=== PATIENT | female | born 1940 | race Caucasian/White ===

== ENCOUNTER 2018-11-30 05:39 | Inpatient (IN) | payer MEDICARE, OTHER ==
[2018-11-30 06:21] LABS: #Basophils 0.1 thou/uL (0.0-0.2); #Eosinphils 0.2 thou/uL (0.0-0.7); #Lymphocytes 3.1 thou/uL (1.20-3.40); #Neutrophils 5.1 thou/uL (1.40-6.50); %Basophils 0.7 % (0.0-1.0); %Eosinophils 2.6 % (0.0-10.0); %Lymphocytes 32.6 % (21.0-51.0); %Monocytes 10.3 % (0.0-10.0); %Neutrophils 53.7 % (42.0-75.0); Hemoglobin 13.6 g/dL (12.0-16.0); Mean Corpuscular Hemoglobin 28.9 pg (27.0-31.0); Mean Corpuscular Volume 90.2 fL (78.0-98.0); Mean Platelet Volume 7.6 fL (7.4-10.4); Platelet Count 279 thou/uL (130-400); RBC Distribution Width 12.4 % (11.5-14.5); Red Blood Cell (RBC) Count 4.71 mill/uL (4.20-5.40); White Blood Cell (WBC) Count 9.4 thou/uL (4.8-10.8)
[2018-11-30 06:27] LABS: INR-International Normal Ratio 1.1; PTT 26.7 SEC (22.9-36.1); Prothrombin Time 13.9 SEC (12.0-14.7)
[2018-11-30 06:41] LABS: ALT (SGPT) 18 U/L (8-55); AST (SGOT) 15 U/L (5-34); Albumin 4.1 g/dL (3.4-4.8); Alkaline Phosphatase 65 U/L (40-150); Anion Gap 15 mmol/L (10-20); BUN (Urea Nitrogen) 31 mg/dL (9.8-20.1); Bilirubin, Total 0.3 mg/dL (0.2-1.2); Calc. Creatinine Clearance 56 mL/min (70-130); Calcium 10.2 mg/dL (7.8-10.44); Carbon Dioxide 21 mmol/L (23-31); Cardiac Risk 5.6 (Less than 4.5); Chloride 109 mmol/L (98-107); Cholesterol 268 mg/dl (< 200 Desired); Estimated GFR-MDRD 46; Glucose 138 mg/dL (83-110); HDL Cholesterol 48 mg/dL (>60 Neg Risk); LDL Cholesterol, Calculated 172 mg/dL; Potassium 4.5 mmol/L (3.5-5.1); Protein, Total 7.1 g/dL (6.0-8.3); Sodium 140 mmol/L (136-145); Triglycerides 241 mg/dL (Less than 150)
[2018-11-30] MEDS ORDERED: Midazolam HCl 2 mg/2 ml Vial ONE (07:33)
[2018-11-30] MEDS ORDERED: Fentanyl 100 MCG/2 ML VIAL ONE (07:33)
[2018-11-30] MEDS ORDERED: Heparin 10,000 UNITS/1 ML VIAL ONE (08:49)
[2018-11-30] MEDS ORDERED: Morphine 2 MG/ML SYRINGE ONE (10:12)
[2018-11-30] MEDS ORDERED: HYDROcodone/Acetaminophen 5/325 mg Tablet PO PRN (11:35)
[2018-11-30] MEDS ORDERED: Bisacodyl 5 MG TAB PO PRN (11:35)
[2018-11-30] MEDS ORDERED: Acetaminophen 325 MG TAB PO PRN (11:35)
[2018-11-30] MEDS ORDERED: Senokot S 8.6-50 MG TAB PO PRN (11:35)
[2018-11-30] MEDS ORDERED: Ondansetron PF 4 MG/2 ML Vial IVP PRN (11:35)
[2018-11-30] MEDS ORDERED: Communication Order-Pharmacy FS ONE (11:35)
[2018-11-30 12:35] LABS: Hemoglobin A1c 6.4 % (4.0-6.0)
[2018-11-30] MEDS ORDERED: Iopamidol 370 76% 100 ML VIAL ONE (15:09)
[2018-11-30] MEDS ORDERED: Sodium Chloride 0.9% 1,000 ML IV SCH (18:58)
[2018-11-30] MEDS ORDERED: traMADol HCl 50 MG TAB PO PRN (18:58)
[2018-11-30] MEDS ORDERED: Nitroglycerin 0.4 MG TAB (25 Tab Bottle) SL PRN (18:58)
[2018-11-30] MEDS ORDERED: Acetaminophen/Codeine 30-300mg Tablet PO PRN ×2 (18:58)
[2018-11-30] MEDS ORDERED: Latanoprost 0.005% Ophth Soln 2.5 ml Bottle L EYE SCH (21:00)
[2018-11-30] MEDS: Brimonidine Tartrate 0.2% Ophth Soln 5 ml Bottle L EYE SCH (22:09)
[2018-12-01] MEDS ORDERED: CEFAZOLIN 2 GM/50 ML-DEXTROSE 2 GM in Premix Bag 1 BAG IVPB SCH (01:45)
[2018-12-01] MEDS ORDERED: Albumin 5% 500 ML ONE (06:31)
[2018-12-01] MEDS ORDERED: Heparin 10,000 UNITS/1 ML VIAL 30,000 UNITS in Sodium Chloride 0.9% 1,000 ML FS SCH (07:00)
[2018-12-01] MEDS ORDERED: Fentanyl 250 MCG/5 ML VIAL ONE (07:10)
[2018-12-01] MEDS ORDERED: Dexmedetomidine 200 MCG/2 ML VIAL ONE (07:11)
[2018-12-01] MEDS ORDERED: Phenylephrine HCL 10 MG/ML VIAL ONE (07:11)
[2018-12-01] MEDS ORDERED: Midazolam HCl 5 mg/5 ml Vial ONE (07:11)
[2018-12-01] MEDS ORDERED: Vecuronium 10 MG VIAL ONE ×2 (07:11→13:07)
[2018-12-01] MEDS ORDERED: Sodium Chloride 0.9% 10 ML ONE (07:13)
[2018-12-01] MEDS ORDERED: Clindamycin/D5W 900 mg/50 ml Premix Bag ONE (08:04)
[2018-12-01] MEDS ORDERED: Levofloxacin 500 mg/D5W 100 ml Premix Bag ONE (08:04)
[2018-12-01] MEDS ORDERED: Aspirin 81 mg Enteric Coated Tablet PO SCH (09:00)
[2018-12-01] MEDS ORDERED: Atorvastatin Calcium 40 MG TAB PO SCH (09:00)
[2018-12-01] MEDS ORDERED: Insulin Regular 300 UNITS/3 ML VIAL ONE (10:20)
[2018-12-01] MEDS ORDERED: Bupivacaine HCl 0.5%/Epinephrine 1:200,000/PF 30 ml Vial ONE (11:25)
[2018-12-01] MEDS ORDERED: Dexamethasone 4 mg/ml Vial ONE (11:25)
[2018-12-01] MEDS ORDERED: Mag-Al 1200 mg/1200 mg/30 ML UDCUP PO PRN (12:42)
[2018-12-01] MEDS ORDERED: Morphine 4 MG/ML VIAL SLOW IVP PRN (12:42)
[2018-12-01] MEDS ORDERED: Fentanyl 100 MCG/2 ML VIAL SLOW IVP PRN ×2 (12:42)
[2018-12-01] MEDS ORDERED: Potassium Chloride 20 MEQ/100 ML PREMIX BAG IVPB PRN (12:42)
[2018-12-01] MEDS ORDERED: Norepinephrine 8 MG/0.9% NS 250 ML IVPB PRN (12:42)
[2018-12-01] MEDS ORDERED: Hetastarch 6% 500 ML 500 ML IVPB PRN (12:42)
[2018-12-01] MEDS ORDERED: hydrALAZINE 20 MG/ML VIAL SLOW IVP PRN (12:42)
[2018-12-01] MEDS ORDERED: Bisacodyl 5 MG TAB PO PRN (12:42)
[2018-12-01] MEDS ORDERED: Promethazine HCl 25 MG/ML VIAL IM PRN (12:42)
[2018-12-01] MEDS ORDERED: Nitroglycerin 50 MG/250 ML BOT 250 ML IVPB PRN (12:42)
[2018-12-01] MEDS ORDERED: Acetaminophen 325 MG TAB PO PRN (12:42)
[2018-12-01] MEDS ORDERED: Guaifenesin DM 100-10/5 ML UDCUP PO PRN (12:42)
[2018-12-01] MEDS ORDERED: HYDROcodone/Acetaminophen 5/325 mg Tablet PO PRN (12:42)
[2018-12-01] MEDS ORDERED: Bisacodyl 10 MG SUPP PR PRN (12:42)
[2018-12-01] MEDS ORDERED: DOPamine 400 MG/D5W 250 ML 250 ML IVPB PRN (12:42)
[2018-12-01] MEDS ORDERED: Post-Op Insulin Drip Protocol IVPB ONE (12:42)
[2018-12-01] MEDS ORDERED: Nitroglycerin 50 MG/250 ML BOT 250 ML ONE (13:02)
[2018-12-01] MEDS ORDERED: Thrombin 5000 UNITS/5 ML VIAL ONE (13:07)
[2018-12-01] MEDS ORDERED: Ondansetron PF 4 MG/2 ML Vial ONE (13:07)
[2018-12-01] MEDS ORDERED: Heparin 30,000 units/30 ml VIAL ONE (13:07)
[2018-12-01] MEDS ORDERED: Albumin 25% 25 GM/100 ML BOT ONE (13:07)
[2018-12-01] MEDS ORDERED: Sodium Bicarb 50 MEQ/50 ML VIAL ONE (13:07)
[2018-12-01] MEDS ORDERED: Magnesium 5 GM/10 ML VIAL ONE (13:07)
[2018-12-01] MEDS ORDERED: PROPOFOL 200 MG/20 ML VIAL ONE (13:07)
[2018-12-01] MEDS ORDERED: Heparin 5,000 UNITS/ML VIAL ONE (13:07)
[2018-12-01] MEDS ORDERED: Calcium Chloride 1 GM/10 ML Abboject SYRINGE ONE (13:07)
[2018-12-01] MEDS ORDERED: Glycopyrrolate 0.2 MG/ML 5 ML SYRINGE ONE (13:07)
[2018-12-01] MEDS ORDERED: Potassium Chloride 60 MEQ/30 ML VIAL ONE (13:07)
[2018-12-01] MEDS ORDERED: ePHEDrine/0.9% NaCl/PF SYRINGE 50 mg/10 ml ONE (13:07)
[2018-12-01] MEDS ORDERED: Protamine Sulfate 250 MG/25 ML VIAL ONE (13:07)
[2018-12-01] MEDS ORDERED: Mannitol 12.5 GM/50 ML ONE (13:07)
[2018-12-01] MEDS ORDERED: Papaverine 60 MG/2 ML VIAL ONE (13:07)
[2018-12-01] MEDS ORDERED: Lidocaine 2% PF 100 mg/5 ml Syringe ONE (13:07)
[2018-12-01] MEDS ORDERED: Nitroglycerin 50 MG/250 ML BOT ONE (13:07)
[2018-12-01] MEDS ORDERED: Dexamethasone 20 MG/5 ML VIAL ONE (13:07)
[2018-12-01] MEDS ORDERED: Cardioplegic Soln 1,000 ML BAG ONE (13:07)
[2018-12-01] MEDS ORDERED: Aminocaproic Acid 5 GM/20 ML VIAL ONE (13:07)
[2018-12-01] MEDS ORDERED: Insulin Regular 300 UNITS/3 ML VIAL SC PRN (13:16)
[2018-12-01] MEDS ORDERED: HUMULIN R 100 UNITS in Sodium Chloride 0.9% 100 ML IVPB SCH (13:16)
[2018-12-01] MEDS ORDERED: Dextrose 50% Abboject 50 ML SYRINGE SLOW IVP PRN (13:16)
[2018-12-01] MEDS ORDERED: Dextrose 5% in Water 1,000 ML IV PRN (13:16)
[2018-12-01 13:30] LABS: INR-International Normal Ratio 1.3; Prothrombin Time 16.4 SEC (12.0-14.7)
[2018-12-01] MEDS ORDERED: Magnesium 2 GM/50 ML 2 GM in Premix Bag 1 BAG IVPB SCH (13:30)
[2018-12-01 13:52] LABS: Anion Gap 10 mmol/L (10-20); BUN (Urea Nitrogen) 17 mg/dL (9.8-20.1); Calc. Creatinine Clearance 73 mL/min (70-130); Calcium 9.1 mg/dL (7.8-10.44); Carbon Dioxide 21 mmol/L (23-31); Chloride 115 mmol/L (98-107); Estimated GFR-MDRD 61; Glucose 205 mg/dL (83-110); Potassium 4.7 mmol/L (3.5-5.1); Sodium 141 mmol/L (136-145)
--- NOTE | 2018-12-01 14:20 | RAD ---
PORTABLE CHEST ONE VIEW: 12/01/2018 11:29 a.m. HISTORY: Postop open heart surgery. FINDINGS: There are changes of median sternotomy. There is a right subclavian central line with the tip in the projection of the right atrium. A mediastinal drain and a left-sided chest tube are present. There is mild pulmonary vascular congestion. There is atelectatic change of the left lung base with proba ble small effusions. No pneumothoraces are seen. POS: [facility]
[2018-12-01] MEDS: Sodium Chloride 0.9% 1,000 ML IV SCH ×2 (14:26→23:31)
[2018-12-01] MEDS: Brimonidine Tartrate 0.2% Ophth Soln 5 ml Bottle L EYE SCH ×2 (14:28→19:34)
[2018-12-01 14:29] LABS: Hemoglobin 10.4 g/dL (12.0-16.0); Mean Corpuscular HGB CONC 32.1 g/dL (32.0-36.0); Mean Corpuscular Hemoglobin 29.2 pg (27.0-31.0); Mean Platelet Volume 7.9 fL (7.4-10.4); Platelet Count 189 thou/uL (130-400); RBC Distribution Width 12.2 % (11.5-14.5); Red Blood Cell (RBC) Count 3.56 mill/uL (4.20-5.40); White Blood Cell (WBC) Count 20.8 thou/uL (4.8-10.8)
[2018-12-01] MEDS: Ketorolac Tromethamine 30 MG/ML VIAL IVP SCH ×2 (14:29→19:24)
[2018-12-01] MEDS: Ondansetron PF 4 MG/2 ML Vial IVP PRN ×2 (14:30→19:37)
[2018-12-01 14:37] LABS: Band 21 % (5-11); Lymphocytes 5 % (21-51); MDiff Complete? YES; Monocytes 3 % (0-10); Neutrophil 71 % (42-75); Platelet Morphology Comment Appears Adequate
[2018-12-01] MEDS: Clindamycin/D5W 900 MG in Premix Bag 1 BAG IVPB SCH ×2 (15:11→19:32)
--- NOTE | 2018-12-01 17:49 | PDOC.CTH ---
Cardiology Progress Note - Subjective She had her CABG earlier today. She is extubated. Her BP has stabilized. - Objective Vital Signs Temp Pulse Ox 12/01/18 17:00 98.0 F 12/01/18 16:00 99 12/01/18 14:00 97.9 F 12/01/18 13:43 97 Admit Weight 197 lb 1.492 oz Weight 197 lb 1.492 oz 11/30/18 12/01/18 12/02/18 06:59 06:59 06:59 Intake Total 140 350 Output Total 650 405 Balance -510 -55 - Physical Examination General/Neuro: alert & oriented x3, NAD Neck: no JVD present Lungs: CTA, unlabored respirations Heart: RRR Abdomen: NT/ND ( ) Extremities: + edema B (1+) - Telemetry Telemetry Rhythm: NSR - Labs Result Diagrams: 12/01/18 13:08 12/01/18 13:08 - Assessment/Plan 1. Multivessel CAD. 2. S/P CABG PLAN: - Continue post op care - PT once tolerated - Aspirin and statin for life. - BB and ACEI if BP allows.
[2018-12-01] MEDS ORDERED: Ketorolac Tromethamine 30 MG/ML VIAL IVP SCH (18:00)
[2018-12-01 18:06] LABS: Hemoglobin 10.2 g/dL (12.0-16.0)
[2018-12-01 18:31] LABS: Potassium 4.5 mmol/L (3.5-5.1)
[2018-12-01] MEDS: Famotidine/PF 20 mg/2ml Vial SLOW IVP SCH (19:33)
[2018-12-01] MEDS: Atorvastatin Calcium 10 MG TAB PO SCH (19:33)
[2018-12-01] MEDS: HYDROcodone/Acetaminophen 5/325 mg Tablet PO PRN (23:36)
[2018-12-02] MEDS: Clindamycin/D5W 900 MG in Premix Bag 1 BAG IVPB SCH ×2 (02:37→08:52)
[2018-12-02] MEDS: Ketorolac Tromethamine 30 MG/ML VIAL IVP SCH (02:37)
[2018-12-02 05:18] LABS: #Lymphocytes 0.8 thou/uL (1.20-3.40); #Monocytes 1.4 thou/uL (0.11-0.59); #Neutrophils 11.5 thou/uL (1.40-6.50); %Lymphocytes 5.6 % (21.0-51.0); %Monocytes 10.2 % (0.0-10.0); %Neutrophils 84.1 % (42.0-75.0); Hemoglobin 8.3 g/dL (12.0-16.0); Mean Corpuscular HGB CONC 31.7 g/dL (32.0-36.0); Mean Corpuscular Hemoglobin 29.3 pg (27.0-31.0); Mean Corpuscular Volume 92.5 fL (78.0-98.0); Mean Platelet Volume 8.6 fL (7.4-10.4); Platelet Count 165 thou/uL (130-400); RBC Distribution Width 12.4 % (11.5-14.5); Red Blood Cell (RBC) Count 2.82 mill/uL (4.20-5.40); White Blood Cell (WBC) Count 13.6 thou/uL (4.8-10.8)
[2018-12-02 05:46] LABS: Anion Gap 11 mmol/L (10-20); BUN (Urea Nitrogen) 21 mg/dL (9.8-20.1); Calc. Creatinine Clearance 54 mL/min (70-130); Calcium 8.3 mg/dL (7.8-10.44); Carbon Dioxide 19 mmol/L (23-31); Chloride 112 mmol/L (98-107); Estimated GFR-MDRD 43; Glucose 112 mg/dL (83-110); Potassium 4.3 mmol/L (3.5-5.1); Sodium 138 mmol/L (136-145)
--- NOTE | 2018-12-02 08:13 | RAD ---
CHEST 1 VIEW: HISTORY: Heart surgery. COMPARISON: 12/01/2018. FINDINGS: Cardiac silhouette is magnified, enlarged, and partially obscured by persistent atelectasis at the le ft base. Pulmonary vasculature is slightly less engorged than on the prior study. Mediastinum is mi dline with postoperative changes. Lines and tues appear unchanged in position. youth nutritional monitor lead s overlie the chest. IMPRESSION: 1. Slight interval decrease in degree of pulmonary vascular congestion. 2. Otherwise, stable postoperative appearance of the chest. POS: DIAN
[2018-12-02] MEDS ORDERED: Insulin Glargine 10 UNITS in Pre-Filled Syringe 1 EACH SC SCH (08:15)
--- NOTE | 2018-12-02 08:35 | PDOC.CTH ---
Cardiology Progress Note - Subjective No new issues. Doing better. - Objective Admit Weight 197 lb 1.492 oz Weight 195 lb 12.328 oz 12/01/18 12/02/18 12/03/18 06:59 06:59 06:59 Intake Total 140 2867.5 Output Total 650 1045 15 Balance -510 1822.5 -15 - Physical Examination General/Neuro: alert & oriented x3, NAD Neck: no JVD present Lungs: CTA, unlabored respirations Heart: RRR Abdomen: NT/ND Extremities: + edema B (1+) - Telemetry Telemetry Rhythm: NSR - Labs Result Diagrams: 12/02/18 05:06 12/02/18 05:06 - Assessment/Plan 1. Multivessel CAD. 2. S/P CABG PLAN: - Continue post op care - PT once tolerated - Aspirin and statin for life. - BB and ACEI if BP allows, still borderline low.
[2018-12-02] MEDS: Sodium Chloride 0.9% 1,000 ML IV SCH ×2 (08:40→19:37)
--- NOTE | 2018-12-02 08:48 | OP ---
DATE OF PROCEDURE: 11/30/2018 PREOPERATIVE DIAGNOSIS: Coronary artery disease. PROCEDURE PERFORMED: Coronary bypass graft x3, left internal mammary artery small vessel good flow to a 1.25 mm LAD, saphenous vein good quality to 1.5 mm PDA and to 1.25 mm diffusely diseased obtuse marginal. WALNUT DEHYDRATOR OPERATOR: Robert Lloyd MD. TRANSFUSION: None. DESCRIPTION OF PROCEDURE: After adequate anesthesia had been obtained, the patient was prepped and draped. Dr. Lloyd performed an endovascular vein harvest of the left greater saphenous vein while I performed median sternotomy. Left internal mammary artery was harvested widely entering the left pleura. The patient was heparinized. Mammary divided distally and passed posterior to a very small remnant of thymus gland. The aorta was cannulated and rudimentary appendage was cannulated on the right atrium and cardiopulmonary bypass instituted. Vessels were inspected for grafting and the obtuse marginal was difficult to locate and films were reviewed to try and ensure that the correct vessel was isolated. Unfortunately, it was diffusely calcified and poor quality. After cross-clamping and a liter of cold blood cardioplegia was given, the three distal anastomosis completed, the cross-clamp removed, partial occluding clamp placed. Two proximal anastomosis performed on the aortic root and marked with rings. There was then bleeding from the distal tip of the mammary and given the small nature of these vessels, it was elected to [id number] 300 mL of cardioplegia and so this leak with the heart still. Following removal of the cross clamp, the patient was weaned from cardiopulmonary bypass. Cannula was removed and protamine given systemically. Mediastinal and left pleural drains were placed following which the sternum was reapproximated with #7 interrupted wire. The vancomycin paste used on the sternal edges, platelet rich blood, and platelet poor plasma. Subcutaneous tissue and skin closed in layers. No reoperation for the circumflex system. Job ID: [id number]
[2018-12-02] MEDS: Famotidine/PF 20 mg/2ml Vial SLOW IVP SCH ×2 (08:53→19:34)
[2018-12-02] MEDS ORDERED: Aspirin 325 MG TAB PO SCH (09:00)
[2018-12-02 11:02] LABS: Actual Bicarbonate (HCO3a) 18.4 mEq/L (22-28); Analyzer IN Cardio OR; Base Excess (BEa) -5.8 mEq/L (-2.0 to +3.0); CO2 Tension 31.4 mmHg (35.0-45.0); Calcium, Ionized 1.11 mmol/L (1.12-1.30); Carboxyhemoglobin (COHb) 0.3 gm% (0.0-3.0); Hemoglobin (Hb) 10.5 g/dL (12.0-16.0); Potassium - ABG Lab 4.13 mmol/L (3.70-5.30); pH, Arterial 7.39 (7.35-7.45)
[2018-12-02 11:02] LABS: Actual Bicarbonate (HCO3a) 21.6 mEq/L (22-28); Analyzer IN Cardio OR; Base Excess (BEa) -2.1 mEq/L (-2.0 to +3.0); CO2 Tension 33.1 mmHg (35.0-45.0); Calcium, Ionized 1.14 mmol/L (1.12-1.30); Carboxyhemoglobin (COHb) 0.4 gm% (0.0-3.0); Hemoglobin (Hb) 11.4 g/dL (12.0-16.0); Potassium - ABG Lab 4.05 mmol/L (3.70-5.30); pH, Arterial 7.43 (7.35-7.45)
[2018-12-02 11:03] LABS: Actual Bicarbonate (HCO3a) 24.2 mEq/L (22-28); Analyzer IN Cardio OR; Base Excess (BEa) -2.4 mEq/L (-2.0 to +3.0); CO2 Tension 52.1 mmHg (35.0-45.0); Calcium, Ionized 1.03 mmol/L (1.12-1.30); Carboxyhemoglobin (COHb) 0.4 gm% (0.0-3.0); Hemoglobin (Hb) 7.7 g/dL (12.0-16.0); O2 Tension (PaO2) 484.2 mmHg (> 70.0); Potassium - ABG Lab 4.58 mmol/L (3.70-5.30); pH, Arterial 7.29 (7.35-7.45)
[2018-12-02 11:03] LABS: Actual Bicarbonate (HCO3a) 21.3 mEq/L (22-28); Analyzer IN Cardio OR; CO2 Tension 34.4 mmHg (35.0-45.0); Calcium, Ionized 1.33 mmol/L (1.12-1.30); Carboxyhemoglobin (COHb) 0.5 gm% (0.0-3.0); Hemoglobin (Hb) 7.5 g/dL (12.0-16.0); O2 Tension (PaO2) 385.6 mmHg (> 70.0); pH, Arterial 7.41 (7.35-7.45)
[2018-12-02 11:03] LABS: Actual Bicarbonate (HCO3a) 24.5 mEq/L (22-28); Analyzer IN Cardio OR; Base Excess (BEa) -1.2 mEq/L (-2.0 to +3.0); CO2 Tension 45.8 mmHg (35.0-45.0); Calcium, Ionized 0.98 mmol/L (1.12-1.30); Carboxyhemoglobin (COHb) 0.4 gm% (0.0-3.0); Hemoglobin (Hb) 7.6 g/dL (12.0-16.0); Potassium - ABG Lab 4.45 mmol/L (3.70-5.30); pH, Arterial 7.35 (7.35-7.45)
[2018-12-02 11:04] LABS: Puncture Site ALINE
[2018-12-02 11:04] LABS: Puncture Site ALINE
[2018-12-02 11:05] LABS: O2 Tension (PaO2) 597.1 mmHg (> 70.0); Puncture Site ALINE
[2018-12-02 11:06] LABS: O2 Tension (PaO2) 502.4 mmHg (> 70.0); Puncture Site ALINE
[2018-12-02 11:07] LABS: Puncture Site ALINE
[2018-12-02] MEDS: HYDROcodone/Acetaminophen 5/325 mg Tablet PO PRN ×2 (12:41→19:33)
[2018-12-02] MEDS: Brimonidine Tartrate 0.2% Ophth Soln 5 ml Bottle L EYE SCH ×2 (17:22→19:36)
[2018-12-02] MEDS: Atorvastatin Calcium 10 MG TAB PO SCH (19:34)
[2018-12-03] MEDS: HYDROcodone/Acetaminophen 5/325 mg Tablet PO PRN ×3 (02:30→20:51)
[2018-12-03 04:28] LABS: #Eosinphils 0.1 thou/uL (0.0-0.7); #Lymphocytes 1.8 thou/uL (1.20-3.40); #Monocytes 1.5 thou/uL (0.11-0.59); #Neutrophils 7.5 thou/uL (1.40-6.50); %Eosinophils 0.6 % (0.0-10.0); %Lymphocytes 16.5 % (21.0-51.0); %Monocytes 13.8 % (0.0-10.0); %Neutrophils 69.1 % (42.0-75.0); Hemoglobin 7.6 g/dL (12.0-16.0); Mean Corpuscular HGB CONC 31.8 g/dL (32.0-36.0); Mean Corpuscular Hemoglobin 29.3 pg (27.0-31.0); Mean Corpuscular Volume 92.2 fL (78.0-98.0); Mean Platelet Volume 8.7 fL (7.4-10.4); Platelet Count 133 thou/uL (130-400); RBC Distribution Width 12.5 % (11.5-14.5); Red Blood Cell (RBC) Count 2.58 mill/uL (4.20-5.40); White Blood Cell (WBC) Count 10.9 thou/uL (4.8-10.8)
[2018-12-03 05:08] LABS: Anion Gap 10 mmol/L (10-20); BUN (Urea Nitrogen) 29 mg/dL (9.8-20.1); Calc. Creatinine Clearance 49 mL/min (70-130); Carbon Dioxide 21 mmol/L (23-31); Chloride 107 mmol/L (98-107); Estimated GFR-MDRD 38; Glucose 137 mg/dL (83-110); Potassium 3.9 mmol/L (3.5-5.1); Sodium 134 mmol/L (136-145)
[2018-12-03] MEDS ORDERED: Fentanyl 100 MCG/2 ML VIAL SLOW IVP PRN (07:22)
[2018-12-03] MEDS ORDERED: Bisacodyl 10 MG SUPP PR PRN (07:22)
[2018-12-03] MEDS ORDERED: Mineral Oil ENEMA PR PRN (07:22)
[2018-12-03] MEDS ORDERED: Ondansetron PF 4 MG/2 ML Vial IVP PRN (07:22)
[2018-12-03] MEDS ORDERED: Acetaminophen 325 MG TAB PO PRN (07:22)
[2018-12-03] MEDS ORDERED: Mag-Al 1200 mg/1200 mg/30 ML UDCUP PO PRN (07:22)
[2018-12-03] MEDS ORDERED: Nitroglycerin 0.4 MG TAB (25 Tab Bottle) SL PRN (07:22)
[2018-12-03] MEDS: Furosemide 40 MG TAB PO SCH (09:38)
[2018-12-03] MEDS: Potassium Chloride 10 MEQ TAB PO SCH (09:38)
[2018-12-03] MEDS: Aspirin 325 mg Enteric Coated Tablet PO SCH (09:38)
[2018-12-03] MEDS: Polyethylene Glycol 3350 17 GM Packet PO SCH (09:38)
[2018-12-03] MEDS: Brimonidine Tartrate 0.2% Ophth Soln 5 ml Bottle L EYE SCH ×2 (09:40→21:30)
--- NOTE | 2018-12-03 09:51 | RAD ---
PORTABLE CHEST: HISTORY: CCU followup. Postop sternotomy followup. COMPARISON: 12/02/2018. FINDINGS: Opacification of the left lung base is consistent with left basilar atelectasis and/or infiltrate and probable left effusion. Lung tavarez otherwise appear clear. Heart is mildly enlarged with postop sternotomy changes. Chest catheters and drains are again noted. A central line appears in adequate position and is unchanged. IMPRESSION: Continued left basilar opacification. POS: [facility]
--- NOTE | 2018-12-03 16:26 | PDOC.CTH ---
Cardiology Progress Note - Subjective She is doing better today. No BM's yet but passing gas. - Objective Vital Signs Temp Pulse Pulse BP BP Pulse Ox Pulse Ox 12/03/18 14:31 99 12/03/18 14:29 73 72 113/74 135/69 100 12/03/18 12:00 99.0 F 12/03/18 09:10 83 95 120/85 117/57 L 100 12/03/18 08:00 99 12/03/18 07:00 98.3 F Pulse Ox 12/03/18 14:31 12/03/18 14:29 73 L 12/03/18 12:00 12/03/18 09:10 100 12/03/18 08:00 12/03/18 07:00 Admit Weight 197 lb 1.492 oz Weight 196 lb 6.91 oz 12/02/18 12/03/18 12/04/18 06:59 06:59 06:59 Intake Total 2867.5 740 740 Output Total 1045 1090 755 Balance 1822.5 -350 -15 - Physical Examination General/Neuro: alert & oriented x3, NAD Neck: no JVD present Lungs: CTA, unlabored respirations Heart: RRR Abdomen: NT/ND Extremities: other: (trace) - Telemetry Telemetry Rhythm: NSR, PAC's - Labs Result Diagrams: 12/03/18 04:21 12/03/18 04:21 - Assessment/Plan 1. Multivessel CAD. 2. S/P CABG PLAN: - Continue post op care - PT once tolerated - Aspirin and statin for life. - Will start low dose coreg.
[2018-12-03] MEDS: Carvedilol 3.125 MG TAB PO SCH (17:24)
[2018-12-03] MEDS: Famotidine 20 MG TAB PO SCH (20:52)
[2018-12-03] MEDS: Guaifenesin DM 100-10/5 ML UDCUP PO PRN (20:52)
[2018-12-03] MEDS: Bisacodyl 5 MG TAB PO PRN (20:52)
[2018-12-03] MEDS: Atorvastatin Calcium 20 MG TAB PO SCH (20:52)
[2018-12-03] MEDS: Latanoprost 0.005% Ophth Soln 2.5 ml Bottle L EYE SCH (20:53)
[2018-12-03] MEDS ORDERED: Famotidine/PF 20 mg/2ml Vial SLOW IVP SCH (21:00)
[2018-12-04] MEDS: HYDROcodone/Acetaminophen 5/325 mg Tablet PO PRN ×4 (01:53→20:39)
[2018-12-04 07:03] LABS: Anion Gap 14 mmol/L (10-20); BUN (Urea Nitrogen) 33 mg/dL (9.8-20.1); Calc. Creatinine Clearance 59 mL/min (70-130); Calcium 8.3 mg/dL (7.8-10.44); Carbon Dioxide 18 mmol/L (23-31); Chloride 106 mmol/L (98-107); Estimated GFR-MDRD 44; Glucose 141 mg/dL (83-110); Potassium 4.1 mmol/L (3.5-5.1); Sodium 134 mmol/L (136-145)
[2018-12-04] MEDS: Potassium Chloride 10 MEQ TAB PO SCH (08:20)
[2018-12-04] MEDS: Brimonidine Tartrate 0.2% Ophth Soln 5 ml Bottle L EYE SCH ×2 (08:20→20:37)
[2018-12-04] MEDS: Carvedilol 3.125 MG TAB PO SCH ×2 (08:20→16:56)
[2018-12-04] MEDS: Aspirin 325 mg Enteric Coated Tablet PO SCH (08:21)
[2018-12-04] MEDS: Polyethylene Glycol 3350 17 GM Packet PO SCH (08:21)
[2018-12-04] MEDS: Furosemide 40 MG TAB PO SCH (08:21)
--- NOTE | 2018-12-04 15:53 | PDOC.CTH ---
Cardiology Progress Note - Subjective She had Afib overnight. She has been walking with PT without issues. She had a BM this morning. - Objective Vital Signs Temp Pulse Pulse Pulse Resp BP BP 12/04/18 15:11 97.9 F 93 16 12/04/18 12:44 86 53 L 136/61 103/52 L 12/04/18 11:49 98.1 F 84 16 12/04/18 08:20 12/04/18 07:27 97.9 F 64 18 BP Pulse Ox Pulse Ox 12/04/18 15:11 140/63 98 12/04/18 12:44 98 12/04/18 11:49 124/60 97 12/04/18 08:20 99 12/04/18 07:27 138/64 98 Admit Weight 197 lb 1.492 oz Weight 210 lb 3.2 oz 12/03/18 12/04/18 12/05/18 06:59 06:59 06:59 Intake Total 740 1780 Output Total 1090 1255 Balance -350 525 - Physical Examination General/Neuro: alert & oriented x3, NAD Neck: no JVD present Lungs: CTA, unlabored respirations Heart: RRR Abdomen: NT/ND Extremities: + edema B (1+) - Telemetry Telemetry Rhythm: Afib --> NSR - Labs Result Diagrams: 12/03/18 04:21 12/04/18 06:07 - Assessment/Plan 1. Multivessel CAD. 2. S/P CABG 3. Post op afib PLAN: - Continue post op care - Aspirin and statin for life. - Low dose coreg. - Will start amiodarone load. - Increase PT as tolerated.
[2018-12-04] MEDS: Amiodarone 200 MG TAB PO SCH (20:39)
[2018-12-04] MEDS: Atorvastatin Calcium 20 MG TAB PO SCH (20:39)
[2018-12-04] MEDS: Famotidine 20 MG TAB PO SCH (20:39)
[2018-12-04] MEDS: Latanoprost 0.005% Ophth Soln 2.5 ml Bottle L EYE SCH (20:43)
[2018-12-05] MEDS: HYDROcodone/Acetaminophen 5/325 mg Tablet PO PRN ×4 (00:23→20:53)
[2018-12-05] MEDS: Potassium Chloride 10 MEQ TAB PO SCH (08:40)
[2018-12-05] MEDS: Amiodarone 200 MG TAB PO SCH ×2 (08:41→20:49)
[2018-12-05] MEDS: Furosemide 40 MG TAB PO SCH (08:41)
[2018-12-05] MEDS: Carvedilol 3.125 MG TAB PO SCH ×2 (08:41→16:29)
[2018-12-05] MEDS: Aspirin 325 mg Enteric Coated Tablet PO SCH (08:41)
[2018-12-05] MEDS: Brimonidine Tartrate 0.2% Ophth Soln 5 ml Bottle L EYE SCH ×2 (08:42→20:50)
[2018-12-05] MEDS: Polyethylene Glycol 3350 17 GM Packet PO SCH (08:43)
--- NOTE | 2018-12-05 18:13 | PDOC.CTH ---
Cardiology Progress Note - Subjective Doing well working well with PT. Had BM. - Objective Vital Signs Temp Pulse Pulse Pulse Resp BP BP 12/05/18 16:28 98.4 F 88 16 12/05/18 14:57 88 59 L 164/83 H 146/53 H 12/05/18 12:27 61 75 135/60 155/53 H 12/05/18 12:00 97.8 F 77 16 12/05/18 08:41 12/05/18 07:34 98.2 F 61 16 BP Pulse Ox Pulse Ox Pulse Ox 12/05/18 16:28 141/57 H 98 12/05/18 14:57 97 98 12/05/18 12:27 97 96 12/05/18 12:00 119/61 96 12/05/18 08:41 97 12/05/18 07:34 134/61 97 Admit Weight 197 lb 1.492 oz Weight 209 lb 12/04/18 12/05/18 12/06/18 06:59 06:59 06:59 Intake Total 1780 1680 1440 Output Total 1255 3500 1900 Balance 525 -1820 -460 - Physical Examination General/Neuro: alert & oriented x3, NAD Neck: no JVD present Lungs: CTA, unlabored respirations Heart: RRR Abdomen: NT/ND Extremities: + edema B (trace) - Telemetry Telemetry Rhythm: NSR - Labs Result Diagrams: 12/03/18 04:21 12/04/18 06:07 - Assessment/Plan 1. Multivessel CAD. 2. S/P CABG 3. Post op afib PLAN: - Continue post op care - Aspirin and statin for life. - Low dose coreg. - Continue amiodarone load. - Increase PT as tolerated.
[2018-12-05] MEDS: Atorvastatin Calcium 20 MG TAB PO SCH (20:50)
[2018-12-05] MEDS: Famotidine 20 MG TAB PO SCH (20:50)
[2018-12-05] MEDS: Latanoprost 0.005% Ophth Soln 2.5 ml Bottle L EYE SCH (20:54)
[2018-12-06] MEDS: HYDROcodone/Acetaminophen 5/325 mg Tablet PO PRN ×3 (02:45→21:28)
[2018-12-06 07:21] LABS: #Basophils 0.1 thou/uL (0.0-0.2); #Eosinphils 0.4 thou/uL (0.0-0.7); #Lymphocytes 2.2 thou/uL (1.20-3.40); #Monocytes 1.2 thou/uL (0.11-0.59); #Neutrophils 5.6 thou/uL (1.40-6.50); %Basophils 0.6 % (0.0-1.0); %Eosinophils 4.2 % (0.0-10.0); %Lymphocytes 23.6 % (21.0-51.0); %Monocytes 12.4 % (0.0-10.0); %Neutrophils 59.2 % (42.0-75.0); Hemoglobin 8.4 g/dL (12.0-16.0); Mean Corpuscular HGB CONC 32.6 g/dL (32.0-36.0); Mean Corpuscular Hemoglobin 29.7 pg (27.0-31.0); Mean Corpuscular Volume 91.1 fL (78.0-98.0); Mean Platelet Volume 7.8 fL (7.4-10.4); Platelet Count 267 thou/uL (130-400); RBC Distribution Width 12.2 % (11.5-14.5); Red Blood Cell (RBC) Count 2.82 mill/uL (4.20-5.40); White Blood Cell (WBC) Count 9.4 thou/uL (4.8-10.8)
[2018-12-06 07:39] LABS: Anion Gap 11 mmol/L (10-20); BUN (Urea Nitrogen) 23 mg/dL (9.8-20.1); Calc. Creatinine Clearance 61 mL/min (70-130); Calcium 8.8 mg/dL (7.8-10.44); Carbon Dioxide 28 mmol/L (23-31); Chloride 104 mmol/L (98-107); Estimated GFR-MDRD 48; Glucose 111 mg/dL (83-110); Potassium 3.6 mmol/L (3.5-5.1); Sodium 139 mmol/L (136-145)
[2018-12-06] MEDS ORDERED: Metolazone 2.5 MG TAB PO SCH (08:30)
[2018-12-06] MEDS: Aspirin 325 mg Enteric Coated Tablet PO SCH (08:40)
[2018-12-06] MEDS: Potassium Chloride 10 MEQ TAB PO SCH (08:40)
[2018-12-06] MEDS: Furosemide 40 MG TAB PO SCH (08:40)
[2018-12-06] MEDS: Amiodarone 200 MG TAB PO SCH ×2 (08:40→21:28)
[2018-12-06] MEDS: Carvedilol 3.125 MG TAB PO SCH ×2 (08:41→16:13)
[2018-12-06] MEDS: Polyethylene Glycol 3350 17 GM Packet PO SCH (08:41)
[2018-12-06] MEDS: Brimonidine Tartrate 0.2% Ophth Soln 5 ml Bottle L EYE SCH ×2 (08:41→21:30)
[2018-12-06] MEDS: Bisacodyl 5 MG TAB PO PRN (11:20)
--- NOTE | 2018-12-06 14:04 | PRG ---
DATE OF SERVICE: 12/06/2018 SUBJECTIVE: A 78-year-old female being seen for acute kidney injury. The patient denies any nausea, vomiting, or chest pain. OBJECTIVE: CONSTITUTIONAL: Awake, alert, in no acute distress. VITAL SIGNS: Afebrile, pulse 75, breathing 16, blood pressure was 133/64. GENERAL APPEARANCE AND MENTAL STATUS: Fair. HEAD/NECK: Normocephalic. Atraumatic. EYES: EOMI. No deformity. EARS: Clear. No ulcers. NOSE: Intact. No lesions. MOUTH: Clear. No discharge. THROAT: Clear. No exudate. LUNGS: Clear. No crackles. CARDIAC: S1, S2. No rub. ABDOMEN: Benign. Bowel sounds positive. GENITALIA/RECTUM: Magallon absent. BACK/EXTREMITIES: Edema 0+. NEUROLOGICAL: Alert and motor intact. SKIN: LYMPHATICS: LABORATORY DATA: Labs showed hemoglobin 8.4. ASSESSMENT: 1. Stage 3 chronic kidney disease, stable. 2. Hypertension. 3. Acute kidney injury, improved. 4. Anemia. Would recommend followup with Hematology and give Epogen. Job ID: [id number]
--- NOTE | 2018-12-06 14:54 | PDOC.CTH ---
Cardiology Progress Note - Subjective She feels more bloated today and SOB. She has been back and forth in afib. Had a BM 2 days ago buit had not had another and has not passed gas since. - Objective Vital Signs Temp Pulse Resp BP BP Pulse Ox 12/06/18 12:26 99.3 F 82 18 133/65 98 12/06/18 08:41 98 12/06/18 07:40 98.0 F 70 20 160/71 H 98 12/06/18 04:00 97.8 F 55 L 17 167/71 H 98 Admit Weight 197 lb 1.492 oz Weight 202 lb 9 oz 12/05/18 12/06/18 12/07/18 06:59 06:59 06:59 Intake Total 1680 1680 Output Total 3500 2900 Balance -1820 -1220 - Physical Examination General/Neuro: alert & oriented x3, NAD Neck: no JVD present Lungs: unlabored respirations Heart: RRR Abdomen: NT/ND Extremities: + edema B (1+) - Telemetry Telemetry Rhythm: Afib - NSR - Labs Result Diagrams: 12/06/18 Unknown 12/06/18 Unknown - Assessment/Plan 1. Multivessel CAD. 2. S/P CABG 3. Post op afib PLAN: - Continue post op care - Aspirin and statin for life. - Low dose coreg. - Continue amiodarone load. - Increase PT as tolerated. - Try to get her bowels to move.
--- NOTE | 2018-12-06 20:09 | EKG ---
Test Reason : STAT Blood Pressure : / mmHG Vent. Rate : 058 BPM Atrial Rate : 058 BPM P-R Int : 176 ms QRS Dur : 108 ms QT Int : 446 ms P-R-T Axes : 026 047 060 degrees QTc Int : 437 ms Sinus bradycardia Otherwise normal ECG When compared with ECG of 01-DEC-2018 12:50, (Unconfirmed) RI interval has decreased QT has shortened Confirmed by ARABELLA CEDENO, . S. (4) on 12/06/2018 8:08:47 PM Referred By: TIERRA Confirmed By:DR. Razia BELL MD
[2018-12-06] MEDS: Atorvastatin Calcium 20 MG TAB PO SCH (21:28)
[2018-12-06] MEDS: Famotidine 20 MG TAB PO SCH (21:28)
[2018-12-06] MEDS: Latanoprost 0.005% Ophth Soln 2.5 ml Bottle L EYE SCH (21:29)
[2018-12-07] MEDS: HYDROcodone/Acetaminophen 5/325 mg Tablet PO PRN ×3 (04:48→20:38)
[2018-12-07] MEDS: Carvedilol 3.125 MG TAB PO SCH ×2 (08:14→17:16)
[2018-12-07] MEDS: Potassium Chloride 10 MEQ TAB PO SCH (08:14)
[2018-12-07] MEDS: Aspirin 325 mg Enteric Coated Tablet PO SCH (08:15)
[2018-12-07] MEDS: Furosemide 40 MG TAB PO SCH (08:15)
[2018-12-07] MEDS: Amiodarone 200 MG TAB PO SCH (08:15)
[2018-12-07] MEDS: Polyethylene Glycol 3350 17 GM Packet PO SCH (08:19)
[2018-12-07] MEDS: Brimonidine Tartrate 0.2% Ophth Soln 5 ml Bottle L EYE SCH ×2 (08:22→20:37)
[2018-12-07] MEDS: Amiodarone 450 MG, Admixture Fee 1 EACH in Dextrose 5% in Water 250 ML IVPB SCH ×2 (15:40→21:50)
--- NOTE | 2018-12-07 18:12 | PDOC.CTH ---
Cardiology Progress Note - Subjective She has been going in and out of afib. When she goes into afib she feels fatigued. - Objective Vital Signs Temp Pulse Pulse Pulse Resp BP BP 12/07/18 15:55 98.9 F 60 16 12/07/18 13:10 74 58 L 185/70 H 141/66 H 12/07/18 11:59 98.5 F 62 16 12/07/18 08:46 78 78 175/72 H 126/56 L 12/07/18 08:11 98.2 F 62 18 12/07/18 08:10 BP BP Pulse Ox Pulse Ox Pulse Ox 12/07/18 15:55 148/65 H 94 L 12/07/18 13:10 97 97 12/07/18 11:59 148/68 H 95 12/07/18 08:46 97 95 12/07/18 08:11 128/62 96 12/07/18 08:10 96 Admit Weight 197 lb 1.492 oz Weight 198 lb 1.6 oz 12/06/18 12/07/18 12/08/18 06:59 06:59 06:59 Intake Total 1680 1500 Output Total 2900 3700 Balance -1220 -2200 - Physical Examination General/Neuro: alert & oriented x3, NAD Neck: no JVD present Lungs: unlabored respirations Heart: RRR Abdomen: NT/ND Extremities: + edema B (1+) - Telemetry Telemetry Rhythm: Afib-->NSR - Labs Result Diagrams: 12/06/18 Unknown 12/06/18 Unknown - Assessment/Plan 1. Multivessel CAD. 2. S/P CABG 3. Post op afib PLAN: - Aspirin and statin for life. - Low dose coreg. - Amiodarone now IV drip. - Increase PT as tolerated. - Had a BM this morning. - Will monitor.
--- NOTE | 2018-12-07 20:01 | EKG ---
Test Reason : S/P CABG Blood Pressure : / mmHG Vent. Rate : 053 BPM Atrial Rate : 053 BPM P-R Int : 210 ms QRS Dur : 108 ms QT Int : 532 ms P-R-T Axes : 011 015 018 degrees QTc Int : 499 ms Sinus bradycardia with 1st degree A-V block Prolonged QT Abnormal ECG No previous ECGs available Confirmed by RUBEN LEVINE (2) on 12/07/2018 8:01:27 PM Referred By: KATHERINE Confirmed By:RUBEN LEVINE
[2018-12-07] MEDS: Atorvastatin Calcium 20 MG TAB PO SCH (20:37)
[2018-12-07] MEDS: Latanoprost 0.005% Ophth Soln 2.5 ml Bottle L EYE SCH (20:37)
[2018-12-07] MEDS: Famotidine 20 MG TAB PO SCH (20:37)
[2018-12-08] MEDS: HYDROcodone/Acetaminophen 5/325 mg Tablet PO PRN ×2 (04:05→20:43)
[2018-12-08] MEDS: Potassium Chloride 10 MEQ TAB PO SCH (09:47)
[2018-12-08] MEDS: Carvedilol 3.125 MG TAB PO SCH ×2 (09:47→16:44)
[2018-12-08] MEDS: Aspirin 325 mg Enteric Coated Tablet PO SCH (09:47)
[2018-12-08] MEDS: Furosemide 40 MG TAB PO SCH (09:48)
[2018-12-08] MEDS: Brimonidine Tartrate 0.2% Ophth Soln 5 ml Bottle L EYE SCH ×2 (09:48→20:42)
[2018-12-08] MEDS: Polyethylene Glycol 3350 17 GM Packet PO SCH (09:48)
[2018-12-08] MEDS: Guaifenesin DM 100-10/5 ML UDCUP PO PRN (14:42)
[2018-12-08] MEDS: Amiodarone 450 MG, Admixture Fee 1 EACH in Dextrose 5% in Water 250 ML IVPB SCH (18:59)
[2018-12-08] MEDS: Latanoprost 0.005% Ophth Soln 2.5 ml Bottle L EYE SCH (20:42)
[2018-12-08] MEDS: Atorvastatin Calcium 20 MG TAB PO SCH (20:42)
[2018-12-08] MEDS: Famotidine 20 MG TAB PO SCH (20:42)
[2018-12-09] MEDS: HYDROcodone/Acetaminophen 5/325 mg Tablet PO PRN ×4 (02:03→23:57)
--- NOTE | 2018-12-09 08:15 | PQF ---
VINCE RICO FERNANDO [id number] CLINICAL DOCUMENTATION IMPROVEMENT CLARIFICATION FORM: ICD-10 Updated PLEASE DO AN ADDENDUM TO THE PROGRESS NOTE WITH ANY DOCUMENTATION UPDATES OR ADDITIONS AND CARRY THROUGH TO DC SUMMARY. THANK YOU. DATE: 12/09 ATTN: DR. ANNA MARIE MAYORGA Please exercise your independent, professional judgment in responding to the clarification form. Clinical indicators are provided on the bottom of this form for your review. Please check appropriate box(s): [ x ] POST-OP AFIB is a complication of current/recent surgery [ ] POST-OP AFIB is not a complication of current/recent surgery [ ] Other diagnosis [ ] Unable to determine CLINICAL INDICATORS - SIGNS / SYMPTOMS / LABS PN 12/04 - : POST-OP AFIB RISK FACTOR: CABG X3 (11/30) TREATMENT: PO AMIODARONE (12/04 - ) AMIODARONE GTT (12/08 - PRESENT) THANK YOU! Yumi (This form is maintained as a part of the permanent medical record) 2014 [employer]. All Rights Reserved Yumi Francis RN, BSN [email or web address] Office: [phone] [facility]
[2018-12-09] MEDS ORDERED: Amiodarone 200 MG TAB PO SCH (09:00)
[2018-12-09] MEDS: Potassium Chloride 10 MEQ TAB PO SCH (09:22)
[2018-12-09] MEDS: Furosemide 40 MG TAB PO SCH (09:22)
[2018-12-09] MEDS: Aspirin 325 mg Enteric Coated Tablet PO SCH (09:22)
[2018-12-09] MEDS: Carvedilol 3.125 MG TAB PO SCH (09:22)
[2018-12-09] MEDS: Polyethylene Glycol 3350 17 GM Packet PO SCH (09:24)
[2018-12-09] MEDS: Brimonidine Tartrate 0.2% Ophth Soln 5 ml Bottle L EYE SCH ×2 (09:28→19:46)
[2018-12-09] MEDS: Guaifenesin DM 100-10/5 ML UDCUP PO PRN ×2 (09:29→19:48)
[2018-12-09 13:35] VITALS: BMI 35.1
--- NOTE | 2018-12-09 17:05 | PDOC.CTH ---
Cardiology Progress Note - Subjective She states she feels well every morning and then she gets her morning meds and starts feeling bad after that. - Objective Vital Signs Temp Pulse Pulse Pulse Resp BP BP 12/09/18 15:34 97.9 F 63 15 12/09/18 12:44 68 63 142/62 H 128/59 L 12/09/18 11:53 98.4 F 63 14 12/09/18 09:43 70 67 142/66 H 140/64 12/09/18 08:05 98.0 F 52 L 12 BP BP Pulse Ox Pulse Ox 12/09/18 15:34 149/64 H 96 12/09/18 12:44 93 L 12/09/18 11:53 138/63 94 L 12/09/18 09:43 12/09/18 08:05 140/60 94 L Admit Weight 194 lb Weight 198 lb 1.6 oz 12/08/18 12/09/18 12/10/18 06:59 06:59 06:59 Intake Total 1750 1200 Output Total 3200 2750 Balance -1450 -1550 - Physical Examination General/Neuro: alert & oriented x3, NAD Neck: no JVD present Lungs: CTA, unlabored respirations Heart: RRR Abdomen: NT/ND Extremities: + edema B (1+) - Telemetry Telemetry Rhythm: NSR, Afib - Labs Result Diagrams: 12/06/18 Unknown 12/06/18 Unknown - Assessment/Plan 1. Multivessel CAD. 2. S/P CABG 3. Post op afib PLAN: - Will stop all meds except for aspirin see if she can feel better. - if she feels better off all meds she may be discharged home and will start outpatient slowly and gradually.
[2018-12-09] MEDS: Famotidine 20 MG TAB PO SCH (19:46)
[2018-12-09] MEDS: Latanoprost 0.005% Ophth Soln 2.5 ml Bottle L EYE SCH (19:47)
[2018-12-10] MEDS: Potassium Chloride 10 MEQ TAB PO SCH (08:51)
[2018-12-10] MEDS: Furosemide 40 MG TAB PO SCH (08:51)
[2018-12-10] MEDS: Aspirin 325 mg Enteric Coated Tablet PO SCH (08:51)
[2018-12-10] MEDS: Brimonidine Tartrate 0.2% Ophth Soln 5 ml Bottle L EYE SCH (08:51)
[2018-12-10] MEDS: Polyethylene Glycol 3350 17 GM Packet PO SCH (08:52)
[2018-12-10 11:49] VITALS: BP 159/67; TEMP 99.3
--- NOTE | 2018-12-10 14:49 | PDOC.CTH ---
Cardiology Progress Note - Subjective Doing much better today. - Objective Vital Signs Temp Pulse Pulse Pulse Resp BP BP 12/10/18 11:43 99.3 F 64 16 12/10/18 11:20 60 65 187/72 H 152/69 H 12/10/18 08:34 80 76 152/69 H 153/67 H 12/10/18 07:41 97.8 F 58 L 18 12/10/18 07:30 12/10/18 03:53 97.7 F 65 16 BP BP Pulse Ox Pulse Ox Pulse Ox 12/10/18 11:43 159/67 H 100 12/10/18 11:20 12/10/18 08:34 98 96 12/10/18 07:41 157/65 H 97 12/10/18 07:30 97 12/10/18 03:53 100/53 L 95 Admit Weight 194 lb Weight 19 lb 3.2 oz 12/09/18 12/10/18 12/11/18 06:59 06:59 06:59 Intake Total 1200 1120 Output Total 2750 2100 Balance -1550 -980 - Physical Examination General/Neuro: alert & oriented x3, NAD Neck: no JVD present Lungs: CTA, unlabored respirations Heart: RRR Abdomen: NT/ND Extremities: + edema B (Trace) - Telemetry Telemetry Rhythm: NSR - Labs Result Diagrams: 12/06/18 Unknown 12/06/18 Unknown - Assessment/Plan 1. Multivessel CAD. 2. S/P CABG 3. Post op afib PLAN: - Feels much better off the meds for now. - She may be discharged home on current regimen. - Will plan on restarting BB and ACEI/ARB as an outpatient. Marcus her sensitivity is from Statin. - Follow up in 1 month.
== END 2018-12-10 15:55 | disposition home health service (06) | DRG 234 ==
LOC: CCL 05:39 → 2NO 18:18 → CCU 12-01 07:35 → 2NO 12-03 18:32
PROVIDERS: ADMIT Thoracic Surgery (Cardiothoracic Vascular Surgery); ATTEND Internal Medicine Cardiovascular Disease
PROC: 4A023N7 Measurement of Cardiac Sampling and Pressure, Left Heart, Percutaneous Approach (ICD-10-PCS; 2018-11-30)
PROC: B2111ZZ Fluoroscopy of Multiple Coronary Arteries using Low Osmolar Contrast (ICD-10-PCS; 2018-11-30)
PROC: B2151ZZ Fluoroscopy of Left Heart using Low Osmolar Contrast (ICD-10-PCS; 2018-11-30)
PROC: 4A033BC Measurement of Arterial Pressure, Coronary, Percutaneous Approach (ICD-10-PCS; 2018-11-30)
PROC: 02100Z9 Bypass Coronary Artery, One Artery from Left Internal Mammary, Open Approach (ICD-10-PCS; principal; 2018-12-01)
PROC: 021109W Bypass Coronary Artery, Two Arteries from Aorta with Autologous Venous Tissue, Open Approach (ICD-10-PCS; 2018-12-01)
PROC: 06BQ4ZZ Excision of Left Saphenous Vein, Percutaneous Endoscopic Approach (ICD-10-PCS; 2018-12-01)
PROC: 5A1221Z Performance of Cardiac Output, Continuous (ICD-10-PCS; 2018-12-01)
DX: I25.10 Atherosclerotic heart disease of native coronary artery without angina pectoris (principal); N17.9 Acute kidney failure, unspecified; I97.190 Other postprocedural cardiac functional disturbances following cardiac surgery; I12.9 Hypertensive chronic kidney disease with stage 1 through stage 4 chronic kidney disease, or unspecified chronic kidney disease; N18.3 Chronic kidney disease, stage 3 (moderate); I48.91 Unspecified atrial fibrillation; D64.9 Anemia, unspecified; Z88.0 Allergy status to penicillin; Z88.2 Allergy status to sulfonamides; Z79.82 Long term (current) use of aspirin; Z79.899 Other long term (current) drug therapy; Y83.2 Surgical operation with anastomosis, bypass or graft as the cause of abnormal reaction of the patient, or of later complication, without mention of misadventure at the time of the procedure; Y92.239 Unspecified place in hospital as the place of occurrence of the external cause
CPT/HCPCS: 36415; 36416; 36430; 71045; 80048; 80053; 80061; 82805; 83036; 85025; 85347; 85610; 85730; 86850; 86870; 86900; 86901; 86922; 87071; 93005; 93010; 93458; 93571; 93798; 99152; 99153; C1769; J0153; J0282; J0670; J1100; J1642; J1644; J1815; J1825; J1885; J1956; J2001; J2150; J2250; J2270; J2370; J2405; J2440; J2704; J2720; J3010; J3370; J3475; J3480; J3490; J7050; J7070; P9045; P9047; Q9967; S0017; S0028

== ENCOUNTER 2019-03-23 11:33 | Outpatient (CLI) | payer MEDICARE ==
--- NOTE | 2019-03-24 16:08 | ULT ---
LOWER EXTREMITY ARTERIAL EVALUATION USING DOPPLER WAVEFORM ANALYSIS AND SEGMENTAL LIMB PRESSURES 03/23/19 The patient has abnormal waveforms in both common femoral arteries that remain diminished distally wi th the right leg showing markedly diminished waveforms in the tibial vessels. Ankle-arm index on the right is 0.49 compared with 0.77 on the left. 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
== END 2019-03-23 11:34 | disposition home or self-care (01) ==
LOC: ULT 11:33
PROVIDERS: ATTEND Family Medicine
DX: I73.9 Peripheral vascular disease, unspecified (principal)
CPT/HCPCS: 93922

== ENCOUNTER 2019-10-04 22:35 | Observation (INO) | payer MEDICARE ==
[2019-10-05] MEDS ORDERED: Rivaroxaban 10 MG TAB PO SCH (00:15)
[2019-10-05 02:17] VITALS: BMI 35.4
[2019-10-05 07:43] LABS: CKMB 2.1 ng/mL (0-6.6)
[2019-10-05] MEDS ORDERED: busPIRone HCl 5 MG TAB PO PRN (07:47)
[2019-10-05] MEDS: Metoprolol Tartrate 25 MG TAB PO SCH ×2 (08:52→21:10)
[2019-10-05] MEDS: Aspirin 81 mg Enteric Coated Tablet PO SCH (08:56)
[2019-10-05] MEDS: Brimonidine Tartrate 0.2% Ophth Soln 5 ml Bottle L EYE SCH ×3 (08:56→21:08)
[2019-10-05] MEDS: Losartan 25 MG TAB PO SCH (11:36)
--- NOTE | 2019-10-05 12:23 | CON ---
DATE OF CONSULTATION: 10/05/2019 REASON FOR CONSULTATION: Tachycardia and weakness. HISTORY OF PRESENT ILLNESS: Ms. Ornelas is a very pleasant 79-year-old white female, very well known to myself, who comes to the hospital for just weakness. She has noticed several episodes in the last few weeks, where she gets extremely weak and tired to the point, where she has to just collapse to the ground. No syncope, only just weakness and not being able to continue to the point and she gets tachycardic. When this gets better, she feels back to normal. She had this episode yesterday lasted a lot longer, so decided to come in for evaluation. She was found to be in what appeared to be an atrial tachycardia or SVT and she was started on a diltiazem drip and eventually, she converted back to sinus rhythm. Cardiology has been consulted for further evaluation and care. She has a history of coronary artery disease with bypass surgery in November of this year. She had postoperative atrial fibrillation. PAST MEDICAL HISTORY: 1. Hypertension. 2. CAD status post CABG in November of this year. 3. Postoperative atrial fibrillation. 4. History of melanoma. 5. Chronic kidney disease. 6. Glaucoma. 7. Cataracts. 8. Hyperlipidemia. 9. Chronic back pain. 10. History of atrial fibrillation. PAST SURGICAL HISTORY: 1. CABG as above. 2. Cholecystectomy. 3. Hysterectomy. SOCIAL HISTORY: No alcohol, tobacco, or drugs. FAMILY HISTORY: Noncontributory. OUTPATIENT MEDICATIONS: Include; 1. Xarelto 10 mg a day. 2. Latanoprost. 3. Brimonidine. 4. Losartan 25 mg a day. 5. Aspirin 81 a day. 6. Atorvastatin 10 mg a day. 7. Keflex. 8. BuSpar 5 mg twice a day. ALLERGIES: 1. LISINOPRIL. 2. PENICILLIN. 3. SULFA DRUGS. 4. ELIQUIS. SHE HAD A REACTION TO SIDE EFFECTS, SO SHE CANNOT TOLERATE THIS. REVIEW OF SYSTEMS: A 12-point review of systems was done and was found to be negative unless stated in the history of present illness PHYSICAL EXAMINATION: VITAL SIGNS: Temperature 97.8, pulse 67, respiratory rate 16, saturation 97% on room air, and blood pressure 134/76. GENERAL: Awake, alert, and oriented x3. No distress. HEENT: Normocephalic and atraumatic. NECK: Supple. LUNGS: Clear. CARDIOVASCULAR: S1 and S2. No S3 or S4. There is a grade 2/6 systolic murmur at the right upper sternal border. ABDOMEN: Soft. Positive bowel sounds. EXTREMITIES: 1+ edema. SKIN: Warm and dry. LABORATORY DATA: Laboratory work was reviewed. White count of 12, hemoglobin of 11, hematocrit of 37, and platelet count of 300. Coags are unremarkable. Chemistries unremarkable except for BUN of 39, creatinine of 1.4, and GFR of 36. Troponin was 0.01 and then 0.03. BNP was 142. Glucose was 123. TSH was normal. EKG was reviewed, appears to be an SVT may be AVNRT. Currently in sinus rhythm and she has had some episodes of sinus bradycardia down to the 30s. ASSESSMENT: 1. Supraventricular tachycardia/atrial tachycardia. 2. Sinus bradycardia, monitor. 3. History of atrial fibrillation postoperatively that persisted afterwards. 4. Coronary artery disease status post coronary artery bypass grafting, stable. No acute coronary syndrome. PLAN: She is very afraid of doing an ablation, if they were to be needed. We will consult Electrophysiology for her to talk with them about this procedure after talking with her myself, she actually is a lot more calm about this and may decide to proceed as she is having very symptomatic episodes of this tachycardia. Thank you for letting us participate in the care of your patient. We will follow. Job ID: [id number]
--- NOTE | 2019-10-05 15:27 | HP ---
CHIEF COMPLAINT: Shortness of breath. HISTORY OF PRESENT ILLNESS: The patient is a very pleasant 79-year-old female with a past medical history of CAD, status post CABG in November; hypertension, and obesity, who presents to the hospital with shortness of breath and palpitations. The patient states that on and off for a few weeks, she has been having thumping in her chest, sometimes radiating up to her head. At that time, sometimes she feels unsteady. The patient's at the bedside stated that she has had multiple episodes to the point where she does not feel well at home and is unable to do anything because she feels so weak. This past Thursday, she was at [employer], had the similar symptom of thumping on her chest, and then at this time, she got so weak that she could not hardly walk. She came to the [place] [facility] 2 times, and she was sent home. The patient also states that she went to see her PCP yesterday, where she was found to be in atrial fibrillation with RVR, and at this time, she was transferred to [place] and then here. She denies any chest tightness, any shortness of breath, any nausea, vomiting, or diarrhea. She states that she has been taking all her medications appropriately. PAST MEDICAL HISTORY: As of the followin. She has CAD. 2. Hypertension. 3. Back pain. 4. Hyperlipidemia. PAST SURGICAL HISTORY: She has had a 3-vessel bypass in November, cholecystectomy, and hysterectomy. SOCIAL HISTORY: She denies any alcohol use, drug use, or smoking history. She is a full code, lives with her . ALLERGIES: SHE HAS LATEX AND PENICILLIN ALLERGIES. SHE IS ALSO ALLERGIC TO SULFA. MEDICATIONS: She takes: 1. Atorvastatin 20 mg daily. 2. Losartan 25 mg daily. 3. Xarelto 20 mg daily. 4. Latanoprost 0.005 ophthalmic drop to each eye daily. PHYSICAL EXAMINATION: VITAL SIGNS: Temperature of 98.8, 99% on room air, respiratory rate 18, blood pressure 100/72. GENERAL: She is awake, alert, and oriented x3. Does not appear in any distress. HEENT: Normocephalic and atraumatic. No lymphadenopathy noted. Pupils are equal and reactive to light. CV: S1 and S2 are present. No murmurs, rubs, or gallops. ABDOMEN: Soft and nontender. Bowel sounds are present x2. EXTREMITIES: No edema. Pedal pulses are present x2. NEUROVASCULAR: There are no focal deficits noted. SKIN: No cuts, lesions, or bruises noted. LABORATORY RESULTS: WBCs of 12.2, hemoglobin of 11.6, hematocrit of 37.8, platelets of 300. Sodium of 144, potassium of 4.0, BUN of 39, creatinine of 1.40. Her troponin was mildly elevated. Initially, they were normal, and they went up to 0.034. Her BNP was 242. She did have a chest x-ray that indicated no acute cardiopulmonary process noted. ASSESSMENT AND PLAN: The patient is a very pleasant 79-year-old female, who presents to the hospital with palpitations. 1. Atrial fibrillation with rapid ventricular response. The patient was found overnight to be a little bit bradycardic. She also has been found to be tachycardic in the ER. She was given Lopressor yesterday in the ER and then last night. Overnight when she was monitored here, she was found to be bradycardic. We will hold off on the beta-izzy for now. We will consult Cardiology. Also, we will continue her Xarelto. We will repeat an echocardiogram and monitor her. 2. Hyperlipidemia. We will continue her statin. 3. Hypertension. We will continue her JESSICA inhibitor. 4. Deep venous thrombosis prophylaxis. She is already on the Xarelto. 5. Her TSH was checked, it was normal, 1.68. Job ID: [id number]
[2019-10-05] MEDS ORDERED: Latanoprost 0.005% Ophth Soln 2.5 ml Bottle L EYE SCH (21:00)
[2019-10-05] MEDS ORDERED: Atorvastatin Calcium 20 MG TAB PO SCH (21:00)
--- NOTE | 2019-10-06 01:08 | CON ---
DATE OF CONSULTATION: 10/05/2019 I am seeing Mrs. Ornelas at our [facility] as Electrophysiology decorating consultant. Her problems are; 1. Narrow complex regular tachycardia on presentation, responding to diltiazem. 2. History of paroxysmal atrial fibrillation. a. Postoperative atrial fibrillation noted after her bypass surgery in November 2018, transiently suppressed with amiodarone in 2018. 3. History of coronary artery disease. a. Left heart catheterization from November 30, 2018, shows normal LVEF, occluded RCA, 67% LAD, severe large OM1 disease, status post coronary artery bypass grafting surgery on December 07, 2018. 4. History of hypertension. 5. Obesity. 6. Hyperlipidemia. 7. History of chronic back pain. ALLERGIES: LATEX, PENICILLIN, AND SULFA. MEDICATIONS: At home include Lipitor, losartan, Xarelto, latanoprost. SUBJECTIVE: Ms. Ornelas is here with recurrent palpitations. She went to [place] [facility] where she was noted to be in a regular narrow complex tachycardia. She was given IV diltiazem and her rhythm normalized. No strips on the first EKG is available. She had palpitations and weakness with these episodes. She did not pass out. No stroke-like symptoms. No neurological deficits. She denies angina. No fever, chills, cough. No bleeding issues. REVIEW OF SYSTEMS: Rest of 12-point review of systems otherwise unremarkable. PAST MEDICAL HISTORY: As above. I have seen this lady earlier this month, referred by Dr. Garber as outpatient to my office with history of atrial fibrillation and palpitations. At that point, we discussed options of ablation versus Multaq; however, she preferred no ablation at this time. She is filling out paperwork for Multaq, patient's assistance. SOCIAL HISTORY: Denies smoking, EtOH, or drug abuse. She is full code. Lives with her . FAMILY HISTORY: Not contributory. OBJECTIVE DATA: VITAL SIGNS: Blood pressure is 132/63, heart rate 67, respirations 20, and temperature 97.7 degrees Fahrenheit. GENERAL: Alert and oriented woman with elevated BMI, in no apparent distress. NECK: Supple. Jugular veins not distended. CHEST: Coarse without crackles. HEART: Sounds are regular rate and rhythm. No murmur or gallop. ABDOMEN: Benign. Bowel sounds positive. EXTREMITIES: Lower extremities without edema, clubbing, or cyanosis. VASCULAR: Pulses are adequate. NEUROLOGIC: The patient is nonfocal. MUSCULOSKELETAL: No joint swelling or deformity. SKIN: Without rash. DATABASE: EKG is reviewed. Initial EKG from [place] [facility] reveal a narrow complex tachycardia with rate of 127 beats per minute. P waves are difficult to discern, possibly burden in the QRS. LABORATORY DATA: Troponin 0.014 and 0.034. White count is 12.2, hemoglobin 11.7, platelet count is 300. INR is 1.3. Sodium 144, potassium 4, BUN is 39, creatinine 1.4. AST and ALT are 21 and 21. ASSESSMENT/PLAN: Mrs. Ornelas is a very pleasant 79-year-old woman with prior history of recurrent palpitations, history of postoperative atrial fibrillation, which was transiently suppressed with amiodarone, but now she is off this medication for many months. On the other hand, she has recurrent palpitations. I saw the patient for discussion regarding presumed paroxysmal atrial fibrillation. We have discussed the treatment options for that, including pulmonary venous isolation procedure. Now, she is presenting with a narrow complex arrhythmia which could represent atrial tachycardia, less likely sinus tachycardia, hence the lack of visible P waves. Part of the differential diagnosis also includes narrow complex SVT like AV jenny reentrant tachycardia with P waves, burried in the QRS. Either way, she is responding well to diltiazem. Again, we discussed the treatment options. She seems to have responded well to diltiazem. Again as discussed in the office, Multaq could also be a reasonable option for her, but may not be affordable medication for her. She is filling out paperwork in this regard, but for now, it is reasonable to consider adding diltiazem to regimen or even beta-izzy. Monitor for concomitant bradycardia. Home monitor maybe reasonable and we will make arrangements to have that scheduled and followup in my office. In the meantime, continue Xarelto hence assumed atrial fibrillation and we will have further discussion regarding the option of EP study ablation as an outpatient as well. Thank you again for letting me to participate in the care of this patient. Job ID: [id number] MTDD
[2019-10-06] MEDS: Aspirin 81 mg Enteric Coated Tablet PO SCH (07:41)
[2019-10-06] MEDS: Metoprolol Tartrate 25 MG TAB PO SCH (07:41)
[2019-10-06] MEDS: Brimonidine Tartrate 0.2% Ophth Soln 5 ml Bottle L EYE SCH (07:42)
[2019-10-06 08:24] VITALS: BP 143/63; TEMP 96.6
[2019-10-06] MEDS: Losartan 25 MG TAB PO SCH (11:04)
[2019-10-06] MEDS ORDERED: Rivaroxaban 10 MG TAB PO SCH (17:00)
--- NOTE | 2019-10-07 08:13 | DIS ---
DATE OF ADMISSION: 10/05/2019 DATE OF DISCHARGE: 10/06/2019 DISCHARGE DIAGNOSES: 1. Atrial fibrillation with rapid ventricular response. 2. Coronary artery disease. 3. Hypertension. HOSPITAL COURSE: The patient is a very pleasant 79-year-old female with status post CABG in , who presents to the hospital with complaints of palpitations. She was found to be in AFib with RVR. She was initially seen by EP and Cardiology. She was put on a beta-izzy and a calcium-channel izzy. The patient really wanted to go home. 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 Her heart rate remained in the 70s on ambulation. I have asked her to continue to monitor her heart rate and if her symptoms return, to come into the ER. She is already on Xarelto. Her echocardiogram indicated an EF of 60% to 65%, with left atrium was mildly dilated. Mild mitral and mild tricuspid regurgitation was noted. MEDICATIONS: Her home medications will be as of the following, she is going to be on; 1. Diltiazem 30 mg t.i.d. 2. Metoprolol 25 mg b.i.d. 3. Latanoprost one drop at bedtime. 4. Aspirin 81 mg daily. 5. Xarelto 20 mg q.p.m. 6. Atorvastatin 20 mg daily. 7. Losartan 25 mg daily. 8. BuSpar 5 mg p.o. daily. PHYSICAL EXAMINATION: VITAL SIGNS: Temperature of 97.8, pulse 75, respiratory rate 20, oxygen saturation 97% on room air, and blood pressure 143/63. GENERAL: She is awake, alert, and oriented x3. Does not appear in distress. CARDIOVASCULAR: S1 and S2 present. No murmurs, rubs, or gallops. ABDOMEN: Soft and nontender. Bowel sounds are present x2. Again, she will be discharged home. She will follow up with her primary and Cardiology. Job ID: [id number]
== END 2019-10-06 11:42 | disposition home or self-care (01) ==
LOC: ERS 22:35 → 2SW 10-05 01:29
PROVIDERS: ADMIT Internal Medicine; ATTEND Internal Medicine
DX: I97.190 Other postprocedural cardiac functional disturbances following cardiac surgery (principal); I48.91 Unspecified atrial fibrillation; I25.10 Atherosclerotic heart disease of native coronary artery without angina pectoris; I12.9 Hypertensive chronic kidney disease with stage 1 through stage 4 chronic kidney disease, or unspecified chronic kidney disease; N18.9 Chronic kidney disease, unspecified; I08.1 Rheumatic disorders of both mitral and tricuspid valves; E66.9 Obesity, unspecified; Z68.35 Body mass index [BMI] 35.0-35.9, adult; E78.5 Hyperlipidemia, unspecified; Z88.0 Allergy status to penicillin; Z88.2 Allergy status to sulfonamides; Z88.8 Allergy status to other drugs, medicaments and biological substances; Z91.040 Latex allergy status; Z79.01 Long term (current) use of anticoagulants; Z79.82 Long term (current) use of aspirin; Z79.899 Other long term (current) drug therapy; Z95.1 Presence of aortocoronary bypass graft
CPT/HCPCS: 82553; 82962; 84484 ×2; 85379; 87086; 93306; 99285; G0378 ×3; 36415; 36416

== ENCOUNTER 2019-12-12 09:32 | Outpatient (CLI) | payer MEDICARE ==
--- NOTE | 2019-12-12 13:15 | MRI ---
MRI ABDOMEN WITH AND WITHOUT IV CONTRAST: Date: 12/12/2019 HISTORY: Liver mass. FINDINGS: Correlation is made with the CT scan of 10/18/2019. The 7.3 x 6.2 x 6.9 cm well circumscribed partially exophytic mass arising from the left lobe of the liver is stable. This demonstrates heterogeneous hyperenhancement on earlier images and enhancement o f the central portion/fibrous tissues/scar on the delayed images. There is high T2 signal within the central scar. No abnormal biliary ductal dilatation is seen. There is fatty infiltration of the liver . The patient is post cholecystectomy. The spleen, pancreas, adrenal glands, and kidneys appear normal. A small hiatal hernia is again seen. No free fluid or lymphadenopathy seen. No evidence of aneurysma l dilatation of the abdominal aorta. There are degenerative changes in the spine. IMPRESSION: Stable left hepatic lobe mass. Imaging characteristics are highly suspicious for focal nodular hyperp lasia. A fibrolamellar hepatocellular carcinoma would be less likely in this age group. RECOMMENDATIONS: Continued follow-up CT scan or MRI of abdomen in 6 months recommended. POS: OFF
[2019-12-12] MEDS ORDERED: Magnevist 469MG/ML 20 ML VIAL ONE (14:48)
== END 2019-12-12 09:33 | disposition home or self-care (01) ==
LOC: BICMRI 09:32
PROVIDERS: ATTEND Internal Medicine Gastroenterology
DX: R16.0 Hepatomegaly, not elsewhere classified (principal); Z80.0 Family history of malignant neoplasm of digestive organs
CPT/HCPCS: 74183; 82565; A9579

== ENCOUNTER 2020-06-01 08:20 | Outpatient (CLI) | payer MEDICARE, OTHER ==
[2020-06-01 14:14] LABS: #Basophils 0.1 thou/uL (0.0-0.2); #Eosinphils 0.4 thou/uL (0.0-0.7); #Lymphocytes 2.8 thou/uL (1.20-3.40); #Monocytes 0.9 thou/uL (0.11-0.59); #Neutrophils 5.3 thou/uL (1.40-6.50); %Basophils 0.8 % (0.0-1.0); %Eosinophils 4.6 % (0.0-10.0); %Lymphocytes 29.7 % (21.0-51.0); %Monocytes 9.5 % (0.0-10.0); %Neutrophils 55.4 % (42.0-75.0); Hemoglobin 12.3 g/dL (12.0-16.0); Mean Corpuscular HGB CONC 32.2 g/dL (32.0-36.0); Mean Corpuscular Hemoglobin 27.6 pg (27.0-31.0); Mean Corpuscular Volume 85.6 fL (78.0-98.0); Mean Platelet Volume 8.6 fL (7.4-10.4); Platelet Count 283 thou/uL (130-400); RBC Distribution Width 13.2 % (11.5-14.5); Red Blood Cell (RBC) Count 4.47 mill/uL (4.20-5.40); White Blood Cell (WBC) Count 9.5 thou/uL (4.8-10.8)
[2020-06-01 14:22] LABS: ALT (SGPT) 18 U/L (8-55); AST (SGOT) 23 U/L (5-34); Albumin 4.2 g/dL (3.4-4.8); Alkaline Phosphatase 71 U/L (40-110); Anion Gap 18 mmol/L (10-20); BUN (Urea Nitrogen) 42 mg/dL (9.8-20.1); Bilirubin, Direct 0.2 mg/dL (0.1-0.3); Bilirubin, Total 0.3 mg/dL (0.2-1.2); Calc. Creatinine Clearance 0 mL/min (70-130); Calcium 9.7 mg/dL (7.8-10.44); Carbon Dioxide 20 mmol/L (23-31); Chloride 107 mmol/L (98-107); Estimated GFR-MDRD 36; Globulin 2.8 g/dL (2.4-3.5); Glucose 143 mg/dL (83-110); Potassium 5.5 mmol/L (3.5-5.1); Sodium 139 mmol/L (136-145)
[2020-06-02 12:37] LABS: SARS-CoV-2 MS2 Positive; SARS-CoV-2 N Gene Negative; SARS-CoV-2 S Gene Negative; SARS-CoV-2 by NAA Not Detected (NotDetected); SARS-CoV-2 orf1ab Negative
== END 2020-06-01 08:21 | disposition home or self-care (01) ==
LOC: LABBT 08:20
PROVIDERS: ATTEND Internal Medicine Cardiovascular Disease
DX: Z01.812 Encounter for preprocedural laboratory examination (principal); Z11.59 Encounter for screening for other viral diseases; I25.10 Atherosclerotic heart disease of native coronary artery without angina pectoris
CPT/HCPCS: 80053; 80076; 85025; U0003; 87635

== ENCOUNTER 2020-06-06 07:00 | Observation (INO) | payer MEDICARE ==
[2020-06-06] MEDS ORDERED: Verapamil 5 MG/2 ML VIAL ONE (08:14)
[2020-06-06] MEDS ORDERED: Heparin 10,000 UNITS/1 ML VIAL ONE (08:14)
[2020-06-06] MEDS ORDERED: Nitroglycerin 100MG/250ML BOT 0 ML ONE (08:14)
[2020-06-06 08:58] LABS: Cardiac Risk 6.4 (Less than 4.5)
[2020-06-06] MEDS ORDERED: Iopamidol 370 76% 100 ML VIAL ONE (10:26)
[2020-06-06] MEDS ORDERED: Fentanyl 100 MCG/2 ML VIAL ONE ×3 (12:22→13:28)
[2020-06-06] MEDS ORDERED: Midazolam HCl 2 mg/2 ml Vial ONE (12:22)
[2020-06-06] MEDS ORDERED: hydrALAZINE 20 MG/ML VIAL ONE ×2 (12:48→12:52)
[2020-06-06] MEDS ORDERED: Ondansetron PF 4 MG/2 ML Vial ONE (13:28)
--- NOTE | 2020-06-06 16:36 | ULT ---
Arterial duplex sonogram right groin HISTORY: Catheterization with right groin pain. FINDINGS: Good color and spectral Doppler flow within the right common femoral vein and common femoral artery. Flow within the greater saphenous vein. No adjacent fluid collections or evidence of vascular injury. IMPRESSION : No abnormalities are demonstrated.
[2020-06-06] MEDS ORDERED: Rivaroxaban 10 MG TAB PO SCH (17:00)
[2020-06-06] MEDS ORDERED: Nitroglycerin 0.4 MG TAB (25 Tab Bottle) ONE (17:31)
[2020-06-06 18:30] VITALS: BMI 36.0
[2020-06-06] MEDS ORDERED: busPIRone HCl 5 MG TAB PO PRN (18:30)
[2020-06-06] MEDS ORDERED: Nitroglycerin 0.4 MG TAB (25 Tab Bottle) SL PRN (18:32)
--- NOTE | 2020-06-06 18:51 | HP ---
HISTORY OF PRESENT ILLNESS: Ms. Ornelas comes into the hospital for a planned heart catheterization. She had an episodes of chest pain and abnormal stress test in the setting of having had bypass surgery in November of 2018. She underwent heart catheterization showing patent bypasses. Most likely, her anginal is coming from the RPL branch that is not getting good retrograde blood flow as there is a [place] disease in the ostium of the RPDA with a right graft is coming. After the heart catheterization, she had manual pressure to achieve hemostasis and she had a vagal episode, her blood pressure came down, her heart rate came down. Eventually, everything got back to normal and she was transferred to the PACU. She never really felt much better, even though, her vitals came back to normal, she continued to feel somewhat nauseated, so decision was made to admit her for observation overnight. She denies any chest pain, tightness, or pressure. PAST MEDICAL HISTORY: Please review outpatient preadmission records. PAST SURGICAL HISTORY: Please review outpatient preadmission records. SOCIAL HISTORY: Please review outpatient preadmission records. FAMILY HISTORY: Please review outpatient preadmission records. OUTPATIENT MEDICATIONS: Unchanged. ALLERGIES: INCLUDE LISINOPRIL, PENICILLIN, AND SULFA DRUGS. REVIEW OF SYSTEMS: A 12-point review of systems was done and was all negative unless stated in the history of present illness. PHYSICAL EXAMINATION: VITAL SIGNS: Temperature 98.2, pulse 78, respiratory rate 16, saturations 98% on room air, blood pressure 172/68. GENERAL: Awake, alert, and oriented x3, in no distress. HEENT: Normocephalic and atraumatic. NECK: Supple. LUNGS: Clear. CARDIOVASCULAR: S1 and S2. No S3 or S4. No murmurs. ABDOMEN: Soft. Positive bowel sounds. EXTREMITIES: No edema. SKIN: Warm and dry. LABORATORY DATA: Laboratory work was reviewed. Triglycerides of 310, cholesterol total of 286, LDL of 176, HDL of 44. ASSESSMENT: 1. Coronary artery disease. 2. Hyperlipidemia. 3. Paroxysmal atrial fibrillation. PLAN: 1. We will hold Xarelto until tomorrow evening. 2. Continue home regimen. 3. We will observe overnight. If everything looks stable, home in the morning. 4. We will resume home medications except for rivaroxaban until tomorrow. We will follow. Job ID: [id number]
[2020-06-06] MEDS: busPIRone HCl 5 MG TAB PO SCH (20:14)
[2020-06-06] MEDS: Metoprolol Tartrate 25 MG TAB PO SCH (20:14)
[2020-06-06] MEDS: Brimonidine Tartrate 0.2% Ophth Soln 5 ml Bottle L EYE SCH (20:26)
[2020-06-06] MEDS ORDERED: Atorvastatin Calcium 20 MG TAB PO SCH (21:00)
[2020-06-06] MEDS ORDERED: Non-Formulary Item 1 EACH (Brimonidine Tartrate [Brimonidine Tartrate 0.15% Ophth Soln] 1 L EYE SCH (21:00)
[2020-06-06] MEDS ORDERED: Latanoprost 0.005% Ophth Soln 2.5 ml Bottle L EYE SCH (21:00)
[2020-06-06] MEDS ORDERED: Metoprolol Tartrate 25 MG TAB PO SCH ×2 (21:00)
[2020-06-07 04:09] LABS: #Eosinphils 0.1 thou/uL (0.0-0.7); #Lymphocytes 2.4 thou/uL (1.20-3.40); #Monocytes 1.2 thou/uL (0.11-0.59); #Neutrophils 5.8 thou/uL (1.40-6.50); %Basophils 0.5 % (0.0-1.0); %Eosinophils 1.3 % (0.0-10.0); %Lymphocytes 24.9 % (21.0-51.0); %Monocytes 12.1 % (0.0-10.0); %Neutrophils 61.2 % (42.0-75.0); Hemoglobin 9.8 g/dL (12.0-16.0); Mean Corpuscular HGB CONC 32.1 g/dL (32.0-36.0); Mean Corpuscular Hemoglobin 27.7 pg (27.0-31.0); Mean Corpuscular Volume 86.5 fL (78.0-98.0); Mean Platelet Volume 9.1 fL (7.4-10.4); Platelet Count 224 thou/uL (130-400); RBC Distribution Width 13.1 % (11.5-14.5); Red Blood Cell (RBC) Count 3.53 mill/uL (4.20-5.40); White Blood Cell (WBC) Count 9.5 thou/uL (4.8-10.8)
[2020-06-07 04:27] LABS: ALT (SGPT) 11 U/L (8-55); AST (SGOT) 18 U/L (5-34); Albumin 3.2 g/dL (3.4-4.8); Alkaline Phosphatase 56 U/L (40-110); Anion Gap 13 mmol/L (10-20); BUN (Urea Nitrogen) 39 mg/dL (9.8-20.1); Bilirubin, Total 0.2 mg/dL (0.2-1.2); Calc. Creatinine Clearance 47 mL/min (70-130); Calcium 8.4 mg/dL (7.8-10.44); Carbon Dioxide 21 mmol/L (23-31); Chloride 109 mmol/L (98-107); Estimated GFR-MDRD 36; Globulin 2.4 g/dL (2.4-3.5); Glucose 156 mg/dL (83-110); Potassium 4.5 mmol/L (3.5-5.1); Protein, Total 5.6 g/dL (6.0-8.3); Sodium 138 mmol/L (136-145)
[2020-06-07] MEDS ORDERED: Magnesium Oxide 250 MG TAB PO SCH (09:00)
[2020-06-07] MEDS ORDERED: Aspirin 81 mg Enteric Coated Tablet PO SCH (09:00)
[2020-06-07] MEDS ORDERED: Aspirin Chewable 81 MG TAB PO SCH (09:00)
[2020-06-07] MEDS ORDERED: Non-Formulary Item 1 EACH (Magnesium [Magnesium] 250 MG) PO SCH (09:00)
[2020-06-07] MEDS ORDERED: Cholecalciferol 1,000 UNITS (25 MCG) TAB PO SCH (09:00)
[2020-06-07] MEDS ORDERED: Non-Formulary Item 1 EACH (Cholecalciferol (Vitamin D3) [Vitamin D] 1,000 UNIT) PO SCH (09:00)
[2020-06-07] MEDS: busPIRone HCl 5 MG TAB PO SCH (10:08)
[2020-06-07] MEDS: Metoprolol Tartrate 25 MG TAB PO SCH (10:08)
[2020-06-07] MEDS ORDERED: Iopamidol 370 76% 100 ML VIAL ONE (10:46)
--- NOTE | 2020-06-07 11:56 | CT ---
CT Chest W Con History: Chest mass Comparison: MR abdomen from over 2019. CT October 2019 Findings: The right upper lobe with the area of scar axial image 11 is similar. The posterior segment right upper lobe area of scar axial image 17 is also similar dating back to September 2019. No new suspicious pulmonary nodule. No mediastinal adenopathy. No pericardial effusion. The mass within hepatic segment 2 and 3 has increased in size with a transverse dimension of 8.3 cm, previously on MR the transverse dimension was 7.3 cm. There is also a mass within hepatic segment 8 with arterial hyperenhancement measuring approximately 1 cm. Multiple midline sternotomy wires. No acute thoracic spine abnormality. Impression: 1. Similar foci of 2 separate foci of scar within the right upper lobe. 2. 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
[2020-06-07] MEDS: Brimonidine Tartrate 0.2% Ophth Soln 5 ml Bottle L EYE SCH (13:25)
[2020-06-07 14:32] VITALS: BP 125/58; TEMP 98.6
--- NOTE | 2020-06-07 18:24 | DIS ---
DATE OF ADMISSION: 06/06/2020 DATE OF DISCHARGE: 06/07/2020 DISCHARGING PHYSICIAN: Isac Garber MD PRIMARY DIAGNOSES: 1. Coronary artery disease, stable. 2. Chronic stable angina. 3. Paroxysmal atrial fibrillation. 4. Paroxysmal atrial flutter, new onset. SUMMARY: Ms. Ornelas is a pleasant 80-year-old white female, who comes to the hospital for planned catheterization. This happened yesterday. Please see report for details. Medical therapy is her only choice at this time. During hospitalization, she had several episodes of what appears to be 2:1 AV block. This only happened while she was sleeping and is completely asymptomatic. She had an episode during the morning when the nurse came in. She actually woke up from sleep as she had dozed off. Her episodes are consistent with probably some level of sleep apnea. She states she sleeps very well. We will consider sleep study as an outpatient. Otherwise, she did have an episode of atrial flutter,self-limiting. This was with 2:1 AV block, heart rate in the 140s. She has several episodes of palpitations. This is probably what she is feeling. We also did a CT of the chest with contrast to make sure there was no pulmonary embolism, which was not the case as well as there was a palpable mass that was tender on her lower right chest. There was nothing there, probably some inflammation only around her surgical site, which is a year and a half old. She does have some masses on her liver that had been looked at in the past by her primary care doctor and she has been told this is without issues. She will follow up with her primary care doctor for these. DISCHARGE MEDICATIONS: 1. Unchanged except for aspirin 81 a day and stopping the diltiazem secondary to bradycardia. 2. We were originally going to add statin, however, right before she walked through the doors to leave she remembered she had a reaction to them in the past and she is intolerant to them, so this was discontinued. 3. Follow up in the office in 4 weeks. Over 30 minutes was spent at bedside for discharge. Job ID: [id number]
[2020-06-07] MEDS ORDERED: Latanoprost 0.005% Ophth Soln 2.5 ml Bottle L EYE SCH (21:00)
== END 2020-06-07 15:17 | disposition home or self-care (01) ==
LOC: CCL 07:00 → 2NO 15:32
PROVIDERS: ADMIT Internal Medicine Cardiovascular Disease; ATTEND Internal Medicine Cardiovascular Disease
PROC: 4A023N7 Measurement of Cardiac Sampling and Pressure, Left Heart, Percutaneous Approach (ICD-10-PCS; principal; 2020-06-06)
PROC: B2111ZZ Fluoroscopy of Multiple Coronary Arteries using Low Osmolar Contrast (ICD-10-PCS; 2020-06-06)
PROC: B2131ZZ Fluoroscopy of Multiple Coronary Artery Bypass Grafts using Low Osmolar Contrast (ICD-10-PCS; 2020-06-06)
PROC: B2181ZZ Fluoroscopy of Left Internal Mammary Bypass Graft using Low Osmolar Contrast (ICD-10-PCS; 2020-06-06)
DX: I25.118 Atherosclerotic heart disease of native coronary artery with other forms of angina pectoris (principal); I25.82 Chronic total occlusion of coronary artery; I48.0 Paroxysmal atrial fibrillation; I48.92 Unspecified atrial flutter; E78.00 Pure hypercholesterolemia, unspecified; I10 Essential (primary) hypertension; E11.9 Type 2 diabetes mellitus without complications; E66.9 Obesity, unspecified; Z68.32 Body mass index [BMI] 32.0-32.9, adult; Z87.891 Personal history of nicotine dependence; Z79.01 Long term (current) use of anticoagulants; Z79.82 Long term (current) use of aspirin; Z79.899 Other long term (current) drug therapy; Z88.0 Allergy status to penicillin; Z88.2 Allergy status to sulfonamides; Z88.8 Allergy status to other drugs, medicaments and biological substances; Z91.041 Radiographic dye allergy status; Z95.1 Presence of aortocoronary bypass graft
CPT/HCPCS: 71260; 80053; 80061; 82962 ×2; 85025; 93005; 93459; 93926; G0378 ×2; 36415; 36416; 85347; 99152; 99153; J0360; J1644; J2250; J2405; J3010; Q9967

== ENCOUNTER 2020-08-25 12:47 | Inpatient (IN) | payer MEDICARE, OTHER ==
[2020-08-25] MEDS ORDERED: Ondansetron PF 4 MG/2 ML Vial IVP PRN ×2 (14:30→15:00)
[2020-08-25] MEDS ORDERED: Ondansetron ODT 4 MG TAB SL PRN (14:30)
[2020-08-25] MEDS ORDERED: Acetaminophen 325 MG TAB PO PRN ×2 (14:30→15:00)
[2020-08-25 15:00] VITALS: BMI 34.5
[2020-08-25] MEDS ORDERED: Dextrose 5% in Water 1,000 ML IV PRN (15:20)
[2020-08-25] MEDS ORDERED: HumaLOG 300 UNITS/3 ML VIAL SC PRN (15:20)
[2020-08-25] MEDS ORDERED: Dextrose 50% Abboject 50 ML SYRINGE SLOW IVP PRN (15:20)
--- NOTE | 2020-08-25 15:59 | HP ---
CHIEF COMPLAINT: "Heart is AFibing". HISTORY OF PRESENT ILLNESS: This is an 80-year-old female with history of coronary artery disease; atrial fibrillation, on Xarelto; stable angina that is inoperable based on last catheterization by Dr. Garber; hypertension; dyslipidemia; glaucoma; chronic kidney disease stage 3; who presents to the emergency room in [place] for palpitations. The patient describes her heart AFibing as a rate between 35 and 85 beats per minute. She has palpitations that she describes as pressure in her stomach that radiates up to her chest. It has been ongoing and intermittent over the past year. Today, she woke up with palpitations and shortness of breath that she reports is consistent with the ongoing problem. She denies any precipitating factors, states that it improves with rest, and is worse with exertion, but can occur at other times as well. She does note that rest occasionally relieves it, but it is not always consistent. The last change in her medications was approximately 1 month ago when isosorbide was added. She states that this helped for approximately a week and then it started again and has progressively worsened. The patient reports a recent sinus infection, for which she took antibiotics. She has ongoing swelling in her left foot that is chronic, and occasionally the back of her head pulsates with the palpitations. She also reports that she is not walking well due to peripheral vascular disease and has seen Dr. Rivero for this. She denies any nausea, vomiting, abdominal pain, fevers, chills, or change in urine. She also denies any other symptoms. In the emergency room in [place], the patient's presentation was concerning for heart failure, for which she received 1 inch of nitropaste, 162 mg of aspirin, and 20 mg of IV Lasix, and hospitalist called for admission. ALLERGIES: 1. ELIQUIS. 2. FLONASE. 3. IODINE. 4. LATEX. 5. LISINOPRIL. 6. PENICILLIN. 7. SULFA. CURRENT MEDICATIONS: Reconciled with the patient, 1. Xarelto 20 mg at 1800 daily. 2. Latanoprost. 3. Brimonidine. 4. Isosorbide mononitrate extended release 30 mg daily. 5. Metoprolol tartrate 25 mg b.i.d. 6. Aspirin 81 mg daily. PAST MEDICAL HISTORY: 1. Coronary artery disease with history of CABG. 2. Atrial fibrillation. 3. Melanoma. 4. Chronic kidney disease stage 3. 5. Glaucoma. 6. Dyslipidemia. 7. Hypertension. 8. Diabetes mellitus, diet controlled. 9. Peripheral vascular disease. 10. Neuropathy, bilateral feet. 11. Chronic left lower extremity edema. PAST SURGICAL HISTORY: 1. Skin cancer removals. 2. Bilateral cataracts. 3. Appendectomy. 4. CABG. 5. Cholecystectomy. 6. Hysterectomy. SOCIAL HISTORY: She denies alcohol or tobacco, her surrogate decision maker is her and she is a full code. FAMILY HISTORY: Negative for heart disease. REVIEW OF SYSTEMS: As noted above. Positive for recent loss of balance, peripheral vascular disease diagnosed by Dr. Rivero, UTI several months ago, recent sinus infection that she reports is resolved, ongoing swelling of her left foot, the back of her head that can pulsate with palpitations occasionally, and right arm weakness for a year. Negative for nausea, vomiting, abdominal pain, fevers, and chills. All remaining review of systems is reviewed and negative. PHYSICAL EXAMINATION: VITAL SIGNS: Blood pressure 133/63, pulse 60, temperature 98, respirations 16, and saturation 100%. GENERAL: Awake, alert, responsive, not in apparent distress. HEENT: No scleral icterus. Oral mucosa is pink and moist. NECK: Supple, nontender. LYMPHATICS: No palpable cervical or supraclavicular lymphadenopathy. LUNGS: Clear to auscultation bilateral. No audible wheezing, rhonchi, or rales. HEART: Normal S1, S2. No significant murmurs. ABDOMEN: Soft with present bowel sounds. Nontender, nondistended. EXTREMITIES: No pitting edema, clubbing, or cyanosis. SKIN: No visible rashes. NEUROLOGIC: No focal deficits. PSYCHIATRIC: Appears euthymic. DIAGNOSTIC STUDIES: EKG is personally reviewed, sinus bradycardia with a rate of 49, PACs. Chest x-ray is personally reviewed. No evidence for an acute cardiopulmonary process. LABORATORY DATA: CBC; 9.7, 11.0, 35.1, and 291. Renal panel; 142, 4.8, 107, 21, 46, 1.41, and 140. T-bilirubin 0.3, AST 38, ALT 21, alkaline phosphatase 69. Troponin 0.012. BNP 355. Review of the prior cholesterol; triglycerides 200, cholesterol 184, LDL 103, and HDL 41. Urinalysis; present protein, moderate leukocyte esterase, 21 to 50 white blood cells, 7 to 10 squamous cells, 0 to 3 renal epithelial cells. IMPRESSION: 1. Palpitations, bradycardia in the context of known angina, history of coronary artery disease, and ongoing atrial fibrillation. 2. Chronic kidney disease stage 3, stable. 3. Anemia, mild and chronic. 4. Dyslipidemia. 5. Glaucoma. 6. Diabetes mellitus, appears controlled. PLAN: 1. Admission to the hospital. 2. Monitoring on telemetry, echocardiogram, Cardiology consultation. 3. Because of the bradycardia, we will hold the metoprolol and monitor. 4. We will continue the isosorbide, monitor her blood pressures. 5. Continuing the Xarelto for stroke risk reduction associated with atrial fibrillation. 6. Monitor her renal function, she is currently at baseline. 7. Check blood sugars and p.r.n. insulin. 8. Monitor troponins. 9. No indication for further Lasix as the patient does not appear overly volume overloaded. 10. Continuing the low-dose aspirin. 11. DVT prophylaxis, not indicated due to the patient being on Xarelto. 12. GI prophylaxis, not indicated. 13. Code status is full. Anticipated length of stay is at least 2 midnights for management of what appears to be severe coronary artery disease that is non-operable. Reviewed the plan of care with the patient and her family, no questions or further needs at the end of evaluation. The patient is at high risk given age comorbidities and current presentation. Addendum - d/w Dr. Treviño after dictation and Xarelto is stopped due to anticipated need for pacemaker insertion. No pharmacologic dvt prophylaxis or other medication for stroke risk reduction at this time. Job ID: [id number] [facility]
[2020-08-25 16:15] LABS: Anion Gap 15 mmol/L (10-20); BUN (Urea Nitrogen) 46 mg/dL (9.8-20.1); Calc. Creatinine Clearance 46 mL/min (70-130); Calcium 10.3 mg/dL (7.8-10.44); Carbon Dioxide 21 mmol/L (23-31); Chloride 108 mmol/L (98-107); Estimated GFR-MDRD 37; Glucose 109 mg/dL (83-110); Potassium 4.4 mmol/L (3.5-5.1); Sodium 140 mmol/L (136-145)
[2020-08-25 16:22] LABS: Troponin I Less than 0.010 ng/mL (< 0.028)
[2020-08-25] MEDS ORDERED: Rivaroxaban 10 MG TAB PO SCH (18:00)
--- NOTE | 2020-08-25 18:13 | CON ---
DATE OF CONSULTATION: 08/25/2020 REASON FOR CONSULTATION: Atrial fibrillation with some tachycardia and bradycardia. PRIMARY PRECISION FARMING COORDINATOR: Dr. Garber. HISTORY OF PRESENT ILLNESS: Ms. Ornelas is a pleasant 80-year-old woman. The patient has a previous history of coronary artery disease and underwent catheterization, showing medical therapy is most appropriate treatment. She has been doing relatively well, but recently has felt her heart racing and then sometimes going slow. She came to the emergency room. She was found to have some bradycardia. She has been brought here for admission for further evaluation. PAST MEDICAL HISTORY: She has coronary artery disease, she underwent cardiac catheterization by Dr. Garber last May 2020, was found to have occluded right coronary, severe mid LAD lesion, severe obtuse marginal 2 lesions, patent PRADHAN to the LAD, small vessel, patent saphenous vein graft to obtuse marginal 2, patent saphenous vein graft to the right posterior descending artery, normal left ventricular function. HOME MEDICATIONS: Include: 1. Rivaroxaban 20 mg a day, last dose last night. 2. Magnesium. 3. Nitroglycerin. 4. Aspirin. 5. Metoprolol 25 mg twice a day. 6. Isosorbide 30 mg a day. REVIEW OF SYSTEMS: CONSTITUTIONAL: No significant weight gain or loss. VISION: No changes. HEARING: No changes. PULMONARY: No cough or wheezing. GASTROINTESTINAL: No nausea, vomiting, or diarrhea. SKIN: No rashes. NEUROLOGIC: No unilateral weakness or numbness. PSYCHIATRIC: No unusual depression or anxiety. PHYSICAL EXAMINATION: GENERAL: This is a pleasant 80-year-old woman, in no distress. VITAL SIGNS: Blood pressure 133/63, pulse 60 and it is regular. LUNGS: Clear. CARDIAC: Normal S1, normal S2. ABDOMEN: Obese, nontender. EXTREMITIES: Warm and dry. No clubbing or cyanosis. There is no edema. PERTINENT LABORATORY DATA: Hemoglobin 11.0. Potassium is 4.4, creatinine is 1.37. The patient reports intolerance to statins. EKG, sinus rhythm with a first-degree AV block with a NH interval of 0.24. The patient has other periods of sinus bradycardia, also some history of atrial fibrillation. ASSESSMENT: 1. 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 2. Coronary artery disease. Medical therapy is the appropriate treatment. PLAN: Continue to monitor. The patient will likely need pacemaker insertion for the tachycardia-bradycardia syndrome. We will repeat 12-lead EKG tomorrow to recheck the NH interval. Likely, the patient will need pacemaker insertion followed by increasing beta izzy to control the rapid heart rate. Job ID: [id number]
[2020-08-25] MEDS ORDERED: busPIRone HCl 5 MG TAB PO PRN (19:57)
[2020-08-25] MEDS: Latanoprost 0.005% Ophth Soln 2.5 ml Bottle L EYE SCH (21:21)
[2020-08-25] MEDS: Brimonidine Tartrate 0.2% Ophth Soln 5 ml Bottle L EYE SCH (21:22)
[2020-08-25] MEDS ORDERED: Melatonin 3 MG TAB PO PRN (21:34)
[2020-08-26 04:54] LABS: Anion Gap 18 mmol/L (10-20); BUN (Urea Nitrogen) 50 mg/dL (9.8-20.1); Calc. Creatinine Clearance 45 mL/min (70-130); Calcium 9.6 mg/dL (7.8-10.44); Carbon Dioxide 13 mmol/L (23-31); Chloride 111 mmol/L (98-107); Estimated GFR-MDRD 36; Glucose 156 mg/dL (83-110); Potassium 5.4 mmol/L (3.5-5.1); Sodium 137 mmol/L (136-145)
[2020-08-26 06:47] LABS: #Basophils 0.1 thou/uL (0.0-0.2); #Eosinphils 0.2 thou/uL (0.0-0.7); #Lymphocytes 2.5 thou/uL (1.20-3.40); #Neutrophils 4.6 thou/uL (1.40-6.50); %Basophils 0.6 % (0.0-1.0); %Eosinophils 2.9 % (0.0-10.0); %Lymphocytes 29.7 % (21.0-51.0); %Neutrophils 54.7 % (42.0-75.0); Mean Corpuscular HGB CONC 33.1 g/dL (32.0-36.0); Mean Corpuscular Hemoglobin 27.7 pg (27.0-31.0); Mean Corpuscular Volume 83.5 fL (78.0-98.0); Mean Platelet Volume 8.7 fL (7.4-10.4); Platelet Count 224 thou/uL (130-400); RBC Distribution Width 13.6 % (11.5-14.5); Red Blood Cell (RBC) Count 3.99 mill/uL (4.20-5.40); White Blood Cell (WBC) Count 8.4 thou/uL (4.8-10.8)
[2020-08-26] MEDS: HumaLOG 300 UNITS/3 ML VIAL SC PRN ×2 (07:08→11:48)
[2020-08-26] MEDS: Brimonidine Tartrate 0.2% Ophth Soln 5 ml Bottle L EYE SCH ×2 (08:36→21:04)
[2020-08-26] MEDS: Aspirin 81 mg Enteric Coated Tablet PO SCH (08:36)
[2020-08-26 12:39] LABS: SARS-CoV-2 MS2 Positive; SARS-CoV-2 N Gene Negative; SARS-CoV-2 S Gene Negative; SARS-CoV-2 by NAA Not Detected (NotDetected); SARS-CoV-2 orf1ab Negative
[2020-08-26] MEDS ORDERED: Milk Of Magnesia 30 ML UDCUP PO PRN (15:05)
--- NOTE | 2020-08-26 16:08 | PDOC.HOSPP ---
- Subjective Encounter Date: 08/26/20 Encounter Time: 16:00 Subjective: f/u for suspected tachycardia-bradycardia syndrome with telemetry showing A- fib/flutter/SR. Metoprolol and Xarelto on hold due to potential pacemaker insertion planned. - Objective Vital Signs & Weight: Vital Signs (12 hours) Temp Pulse Resp BP Pulse Ox 08/26/20 15:30 97.8 F 78 20 131/76 97 08/26/20 11:42 98.0 F 73 16 128/64 100 08/26/20 07:38 98.3 F 72 16 136/86 97 08/26/20 07:21 97 Weight Weight 195 lb I&O: 08/25/20 08/26/20 08/27/20 06:59 06:59 06:59 Intake Total 1010 Output Total 400 Balance 610 Result Diagrams: 08/26/20 06:38 08/26/20 04:22 Additional Labs: Accuchecks 08/26/20 08/26/20 08/25/20 10:56 05:43 21:52 POC Glucose 201 H 158 H 130 H 08/25/20 16:39 POC Glucose 241 H Laboratory Tests 08/25/20 08/25/20 15:06 17:05 Potassium 4.4 Carbon Dioxide 21 L BUN 46 H Creatinine 1.37 H SARS-CoV-2 (PCR) Not Detected Laboratory Tests 10/02/19 10/04/19 08/25/20 13:34 16:30 09:45 B-Natriuretic Peptide 133.4 H 242.0 H 355.1 H Radiology Reviewed by me: Yes (PCXR - no acute process) EKG Reviewed by me: Yes (Tele - A-fib/flutter/SR) Hospitalist ROS - Medication Medications: Active Medications Generic Name Dose Route Start Last Admin Trade Name Freq PRN Reason Stop Dose Admin Aspirin 81 mg 08/26/20 09:00 08/26/20 08:36 Aspirin 81 Mg Enteric Coated Tablet PO 81 mg DAILY VALENTIN Administration Brimonidine Tartrate 1 drop 08/25/20 21:00 08/26/20 08:36 Brimonidine Tartrate 0.2% Ophth Soln 5 Ml Bottle L EYE 1 drop BID VALENTIN Administration Insulin Human Lispro 0 units 08/25/20 15:20 08/26/20 11:48 Humalog 300 Units/3 Ml Vial SC 3 unit .MILD SLIDING SCALE PRN Administration Mild Correctional Scale Isosorbide Mononitrate 30 mg 08/26/20 09:00 08/26/20 08:36 Isosorbide Mononitrate Er 30 Mg Tab PO 30 mg DAILY VALENTIN Administration Latanoprost 1 drop 08/25/20 21:00 08/25/20 21:21 Latanoprost 0.005% Ophth Soln 2.5 Ml Bottle L EYE 1 drop HS VALENTIN Administration Magnesium Hydroxide 30 ml 08/26/20 15:05 08/26/20 15:32 Milk Of Magnesia 30 Ml Udcup PO 30 ml DAILYPRN PRN Administration Constipation Melatonin 6 mg 08/25/20 21:34 08/25/20 22:29 Melatonin 3 Mg Tab PO 6 mg HS PRN Administration Insomnia - Exam General Appearance: NAD, awake alert Eye: PERRL, anicteric sclera ENT: normocephalic atraumatic, no oropharyngeal lesions Neck: supple, symmetric, no JVD, no thyromegaly, no lymphadenopathy Heart: RRR, no gallops, no rubs, normal peripheral pulses Heart - other findings: S1, S2 Respiratory: CTAB, no wheezes, no rales, no ronchi, normal chest expansion Gastrointestinal: soft, non-tender, non-distended, normal bowel sounds, no palpable masses Extremities: no cyanosis, 1+ LE edema Skin: normal turgor, no lesions Neurological: cranial nerve grossly intact, no new deficit Musculoskeletal: normal tone, normal strength, no muscle wasting Psychiatric: normal affect, A&O x 3 Hosp A/P (1) Tachy-nilsa syndrome Code(s): I49.5 - SICK SINUS SYNDROME Status: Acute Plan: Likely will need PM placement in am, Cardiology following, hold Metoprolol (2) Atrial fibrillation Code(s): I48.91 - UNSPECIFIED ATRIAL FIBRILLATION Status: Chronic Qualifiers: Atrial fibrillation type: paroxysmal Qualified Code(s): I48.0 - Paroxysmal atrial fibrillation Plan: See #1 above, consideration for PM placement, holding Xarelto currently (3) CAD (coronary artery disease) Code(s): I25.10 - ATHSCL HEART DISEASE OF [place] CORONARY ARTERY W/O ANG PCTRS Status: Chronic Plan: Med mgmt, ASA/Nitro (4) CKD (chronic kidney disease), stage III Code(s): N18.30 - CHRONIC KIDNEY DISEASE, STAGE 3 UNSPECIFIED Status: Chronic Plan: Avoid nephrotoxic meds and limit contrast exposure (5) DM II (diabetes mellitus, type II), controlled Code(s): E11.9 - TYPE 2 DIABETES MELLITUS WITHOUT COMPLICATIONS Status: Chronic Plan: ISS, ADA, serial accuchecks (6) Anemia in CKD (chronic kidney disease) Code(s): N18.9 - CHRONIC KIDNEY DISEASE, UNSPECIFIED; D63.1 - ANEMIA IN CHRONIC KIDNEY DISEASE Status: Chronic Plan: Stable currently, serial H/H - Plan plan discussed w/ family, social media intern, out of bed/ambulate, DVT proph w/SCDs Stable currently Plan for potential PM placement 08/27 Continue ASA/Nitro Hold Metoprolol 2D echo pending AM lab: BMP, CBC
[2020-08-26] MEDS: Latanoprost 0.005% Ophth Soln 2.5 ml Bottle L EYE SCH (21:04)
[2020-08-27 05:33] LABS: #Basophils 0.1 thou/uL (0.0-0.2); #Eosinphils 0.2 thou/uL (0.0-0.7); #Lymphocytes 3.1 thou/uL (1.20-3.40); #Monocytes 1.1 thou/uL (0.11-0.59); #Neutrophils 4.7 thou/uL (1.40-6.50); %Basophils 0.8 % (0.0-1.0); %Eosinophils 2.7 % (0.0-10.0); %Lymphocytes 33.4 % (21.0-51.0); %Monocytes 12.2 % (0.0-10.0); Hemoglobin 10.7 g/dL (12.0-16.0); Mean Corpuscular HGB CONC 33.1 g/dL (32.0-36.0); Mean Corpuscular Hemoglobin 27.8 pg (27.0-31.0); Mean Corpuscular Volume 83.9 fL (78.0-98.0); Mean Platelet Volume 8.9 fL (7.4-10.4); Platelet Count 240 thou/uL (130-400); RBC Distribution Width 13.8 % (11.5-14.5); Red Blood Cell (RBC) Count 3.85 mill/uL (4.20-5.40); White Blood Cell (WBC) Count 9.2 thou/uL (4.8-10.8)
[2020-08-27 05:54] LABS: Anion Gap 13 mmol/L (10-20); BUN (Urea Nitrogen) 41 mg/dL (9.8-20.1); Calc. Creatinine Clearance 45 mL/min (70-130); Calcium 9.2 mg/dL (7.8-10.44); Carbon Dioxide 21 mmol/L (23-31); Chloride 105 mmol/L (98-107); Estimated GFR-MDRD 36; Glucose 154 mg/dL (83-110); Potassium 4.4 mmol/L (3.5-5.1); Sodium 135 mmol/L (136-145)
[2020-08-27] MEDS: Aspirin 81 mg Enteric Coated Tablet PO SCH (08:09)
[2020-08-27] MEDS: Brimonidine Tartrate 0.2% Ophth Soln 5 ml Bottle L EYE SCH ×2 (08:09→21:25)
--- NOTE | 2020-08-27 12:51 | PDOC.HOSPP ---
- Subjective Encounter Date: 08/27/20 Encounter Time: 12:45 Subjective: f/u for tachy-nilsa syndrome with potential PM placement pending final evaluation from Cardiology. No new issues noted. - Objective Vital Signs & Weight: Vital Signs (12 hours) Temp Pulse Resp BP Pulse Ox 08/27/20 11:16 98.5 F 72 16 152/59 H 97 08/27/20 08:10 98.6 F 69 17 126/59 L 98 08/27/20 04:26 98.2 F 64 14 137/64 98 Weight Weight 195 lb I&O: 08/26/20 08/27/20 08/28/20 06:59 06:59 06:59 Intake Total 1010 1200 Output Total 400 400 Balance 610 800 Result Diagrams: 08/27/20 04:34 08/27/20 04:34 Additional Labs: Accuchecks 08/27/20 08/27/20 08/26/20 10:33 04:19 21:41 POC Glucose 159 H 162 H 223 H 08/26/20 16:46 POC Glucose 110 H Laboratory Tests 10/02/19 10/04/19 08/25/20 13:34 16:30 09:45 Potassium Carbon Dioxide BUN Creatinine B-Natriuretic Peptide 133.4 H 242.0 H 355.1 H SARS-CoV-2 (PCR) 08/25/20 08/25/20 08/26/20 15:06 17:05 04:22 Potassium 4.4 Carbon Dioxide 21 L BUN 46 H Creatinine 1.37 H 1.40 H B-Natriuretic Peptide SARS-CoV-2 (PCR) Not Detected EKG Reviewed by me: Yes (Tele - SR with nilsa episodes, A-flutter, A-tach) Hospitalist ROS - Medication Medications: Active Medications Generic Name Dose Route Start Last Admin Trade Name Freq PRN Reason Stop Dose Admin Aspirin 81 mg 08/26/20 09:00 08/27/20 08:09 Aspirin 81 Mg Enteric Coated Tablet PO 81 mg DAILY VALENTIN Administration Brimonidine Tartrate 1 drop 08/25/20 21:00 08/27/20 08:09 Brimonidine Tartrate 0.2% Ophth Soln 5 Ml Bottle L EYE 1 drop BID VALENTIN Administration Insulin Human Lispro 0 units 08/25/20 15:20 08/26/20 11:48 Humalog 300 Units/3 Ml Vial SC 3 unit .MILD SLIDING SCALE PRN Administration Mild Correctional Scale Isosorbide Mononitrate 30 mg 08/26/20 09:00 08/27/20 08:09 Isosorbide Mononitrate Er 30 Mg Tab PO 30 mg DAILY VALENTIN Administration Latanoprost 1 drop 08/25/20 21:00 08/26/20 21:04 Latanoprost 0.005% Ophth Soln 2.5 Ml Bottle L EYE 1 drop HS VALENTIN Administration Magnesium Hydroxide 30 ml 08/26/20 15:05 08/26/20 15:32 Milk Of Magnesia 30 Ml Udcup PO 30 ml DAILYPRN PRN Administration Constipation Melatonin 6 mg 08/25/20 21:34 08/25/20 22:29 Melatonin 3 Mg Tab PO 6 mg HS PRN Administration Insomnia - Exam General Appearance: NAD, awake alert Eye: PERRL, anicteric sclera ENT: normocephalic atraumatic, no oropharyngeal lesions Neck: supple, symmetric, no JVD, no thyromegaly, no lymphadenopathy Heart: RRR, no gallops, no rubs, normal peripheral pulses Heart - other findings: S1, S2 Respiratory: CTAB, no wheezes, no rales, no ronchi, normal chest expansion Gastrointestinal: soft, non-tender, non-distended, normal bowel sounds, no palpable masses Extremities: no cyanosis, no clubbing, no edema Skin: normal turgor, no lesions Neurological: cranial nerve grossly intact, no new deficit Musculoskeletal: normal tone, generalized weakness Psychiatric: normal affect, A&O x 3 Hosp A/P (1) Tachy-nilsa syndrome Code(s): I49.5 - SICK SINUS SYNDROME Status: Acute Plan: Likely PM placement pending final evaluation from Cardiology in am (2) Atrial fibrillation Code(s): I48.91 - UNSPECIFIED ATRIAL FIBRILLATION Status: Chronic Qualifiers: Atrial fibrillation type: paroxysmal Qualified Code(s): I48.0 - Paroxysmal atrial fibrillation Plan: Metoprolol and Xarelto on hold pending potential PM insertion (3) CAD (coronary artery disease) Code(s): I25.10 - ATHSCL HEART DISEASE OF [place] CORONARY ARTERY W/O ANG PCTRS Status: Chronic Plan: s/p CABG x 3v, ASA/Imdur (4) CKD (chronic kidney disease), stage III Code(s): N18.30 - CHRONIC KIDNEY DISEASE, STAGE 3 UNSPECIFIED Status: Chronic Plan: Stable creatinine, avoid nephrotoxic meds and limit contrast (5) DM II (diabetes mellitus, type II), controlled Code(s): E11.9 - TYPE 2 DIABETES MELLITUS WITHOUT COMPLICATIONS Status: Chronic Plan: ISS, NPO currently for potential PM placement (6) Anemia in CKD (chronic kidney disease) Code(s): N18.9 - CHRONIC KIDNEY DISEASE, UNSPECIFIED; D63.1 - ANEMIA IN CHRONIC KIDNEY DISEASE Status: Chronic Plan: H/H stable currently, serial monitoring - Plan PT/OT, social work associate, out of bed/ambulate, DVT proph w/SCDs Stable currently Plan for potential PM placement 08/28 Continue ASA/Nitro Hold Metoprolol 2D echo pending NPO after MN Albuterol nebs q8h prn Lasix 20mg IV x 1 dose AM lab: BMP, H/H
--- NOTE | 2020-08-27 17:00 | PDOC.CPN ---
- Subjective Date: 08/27/20 Time: 16:58 Interval history: She is doing well. She denies angina or SOB. - Review of Systems General: denies: fever/chills, weight/appetite/sleep changes, night sweats, fatigue Respiratory: denies: cough, congestion, shortness of breath, exercise intolerance Cardiovascular: denies: chest pain, palpitation, edema, paroxysmal nocturnal dyspnea, orthopnea Gastrointestinal: denies: nausea, vomiting, diarrhea, constipation, abd pain, GI bleeding Musculoskeletal: denies: pain, tenderness, stiffness, swelling, arthritis/arthralgias Neurological: denies: numbness, syncope, seizure, weakness - Objective Allergies/Adverse Reactions: Allergies Allergy/AdvReac Type Severity Reaction Status Date / Time apixaban [From Eliquis] Allergy Verified 08/25/20 14:50 fluticasone [From Flonase] Allergy Verified 08/25/20 14:50 iodine Allergy Verified 06/06/20 18:27 latex Allergy Verified 08/25/20 14:50 lisinopril Allergy COUGH Verified 06/06/20 18:27 Penicillins Allergy Verified 06/06/20 18:27 Sulfa (Sulfonamide Allergy "makes me Verified 06/06/20 18:27 Antibiotics) feel terrible" Visit Medications: Current Medications Acetaminophen (Acetaminophen 325 Mg Tab) 650 mg PO Q4H PRN PRN Reason: Headache/Fever/Mild Pain (1-3) Aspirin (Aspirin 81 Mg Enteric Coated Tablet) 81 mg PO DAILY [facility] Last Admin: 08/27/20 08:09 Dose: 81 mg Documented by: Brimonidine Tartrate (Brimonidine Tartrate 0.2% Ophth Soln 5 Ml Bottle) 1 drop L EYE BID [facility] Last Admin: 08/27/20 08:09 Dose: 1 drop Documented by: Buspirone HCl (Buspirone Hcl 5 Mg Tab) 5 mg PO BID PRN PRN Reason: Anxiety Dextrose/Water (Dextrose 50% Abboject 50 Ml Syringe) 25 gm SLOW IVP PRN PRN PRN Reason: Hypoglycemia Glucagon (Glucagon 1 Mg/Ml Vial) 1 mg IM PRN PRN PRN Reason: Hypoglycemia Dextrose/Water (D5w) 1,000 mls @ 0 mls/hr IV .Q0M PRN PRN Reason: Hypoglycemia Insulin Human Lispro (Humalog 300 Units/3 Ml Vial) 0 units SC .MILD SLIDING SCALE PRN PRN Reason: Mild Correctional Scale Last Admin: 08/26/20 11:48 Dose: 3 unit Documented by: Insulin Human Lispro (Humalog 300 Units/3 Ml Vial) 0 units SC .BEDTIME SLIDING SC PRN PRN Reason: Bedtime Correctional Scale Isosorbide Mononitrate (Isosorbide Mononitrate Er 30 Mg Tab) 30 mg PO DAILY VALENTIN Last Admin: 08/27/20 08:09 Dose: 30 mg Documented by: Latanoprost (Latanoprost 0.005% Ophth Soln 2.5 Ml Bottle) 1 drop L EYE HS VALENTIN Last Admin: 08/26/20 21:04 Dose: 1 drop Documented by: Magnesium Hydroxide (Milk Of Magnesia 30 Ml Udcup) 30 ml PO DAILYPRN PRN PRN Reason: Constipation Last Admin: 08/26/20 15:32 Dose: 30 ml Documented by: Melatonin (Melatonin 3 Mg Tab) 6 mg PO HS PRN PRN Reason: Insomnia Last Admin: 08/25/20 22:29 Dose: 6 mg Documented by: Ondansetron HCl (Ondansetron Pf 4 Mg/2 Ml Vial) 4 mg IVP Q6H PRN PRN Reason: Nausea/Vomiting Vital Signs & Weight: Vital Signs Temp Pulse Resp BP BP Pulse Ox 08/27/20 15:25 97.7 F 84 13 144/70 H 98 08/27/20 11:16 98.5 F 72 16 152/59 H 97 08/27/20 08:10 98.6 F 69 17 126/59 L 98 Weight 195 lb - Physical Exam General: alert & oriented x3 HEENT: mucus membranes moist Neck: supple neck Cardiac: regular rate and rhythm Lungs: normal breath sounds Neuro: grossly intact Abdomen: active bowel sounds Extremities: 1+ LE edema Skin: clear Musculoskeletal: no pain - Labs Result Diagrams: 08/27/20 04:34 08/27/20 04:34 Troponin/CKMB Troponin I Less than 0.010 ng/mL (< 0.028) 08/25/20 15:06 - Telemetry Sinus rhythms and dysrhythmias: sinus rhythm - Assessment/Plan Assessment/Plan: 1. Paroxysmal afib 2. PAroxysmal a flutter 3. Tachy nilsa syndrome 4. CAD 5. S/P CABG PLAN: - Continue to hold Xarelto as she will most likely need a PPM. - May also need an ablation for aflutter. - Will consult EP.
[2020-08-27] MEDS ORDERED: Albuterol Sulfate 1.25 MG/3 ML NEB NEB PRN (20:17)
[2020-08-27] MEDS ORDERED: Furosemide 20 MG/2 ML VIAL SLOW IVP SCH (20:30)
[2020-08-27] MEDS ORDERED: Albuterol Sulfate 1.25 MG/3 ML NEB NEB SCH (20:30)
[2020-08-27] MEDS: Latanoprost 0.005% Ophth Soln 2.5 ml Bottle L EYE SCH (21:24)
[2020-08-28 04:53] LABS: Hemoglobin 10.6 g/dL (12.0-16.0); Platelet Count 255 thou/uL (130-400)
[2020-08-28 05:13] LABS: Anion Gap 14 mmol/L (10-20); BUN (Urea Nitrogen) 39 mg/dL (9.8-20.1); Calc. Creatinine Clearance 44 mL/min (70-130); Calcium 9.3 mg/dL (7.8-10.44); Carbon Dioxide 24 mmol/L (23-31); Chloride 103 mmol/L (98-107); Estimated GFR-MDRD 35; Glucose 169 mg/dL (83-110); Potassium 4.2 mmol/L (3.5-5.1); Sodium 137 mmol/L (136-145)
[2020-08-28] MEDS: Brimonidine Tartrate 0.2% Ophth Soln 5 ml Bottle L EYE SCH ×2 (08:29→20:13)
[2020-08-28] MEDS: Aspirin 81 mg Enteric Coated Tablet PO SCH (08:30)
--- NOTE | 2020-08-28 08:36 | CON ---
DATE OF CONSULTATION: 08/27/2020 ADDITIONAL REFERRING PHYSICIAN: Dr. Holly Benitez. HISTORY OF PRESENT ILLNESS: I am seeing Ms. Ornelas at our [facility] telemetry floor for electrophysiology consultation. Her problems are; 1. Multi-circuit atrial arrhythmias: a. Paroxysmal atrial fibrillation as well as alternating episodes of atrial flutter, possibly typical, isthmus dependent. b. Prior history of regular narrow complex SVT. 2. 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 Tachy-nilsa syndrome. 3. Coronary artery disease: a. Prior history of coronary artery bypass grafting surgery on December 07, 2018. b. History of preserved LVEF by most recent echo on 10/06/2019. c. Diastolic heart failure with lower extremity edema, mild fluid overload. 4. Elevated CHADS-VASc score with diabetes, coronary vascular disease, age, and gender at 5, on Xarelto for anticoagulation. ALLERGIES: ELIQUIS, FLONASE, FOOD ALLERGIES, IODINE, LATEX ALLERGY, LISINOPRIL, PENICILLIN, SULFA, SULFISOXAZOLE, SULFONAMIDE DERIVATIVES. HOME MEDICATIONS: Included; 1. Brimonidine. 2. Latanoprost. 3. BuSpar. 4. Xarelto 20 mg daily. 5. Vitamin D. 6. Magnesium. 7. Nitrostat. 8. Aspirin. 9. Metoprolol tartrate. 10. Isosorbide mononitrate. SUBJECTIVE: Ms. Ornelas is here with recurrent palpitations, marked fatigue, dizziness. She is noted to be bradycardic, rate of 49 beats per minute on admission, sinus rhythm with PACs where she develops atrial flutter / fibrillation with heart rate of 57 beats per minute. She also has more rapid heart beatings with typical atrial flutter detected. She does not pass out with any of these. No stroke-like symptoms or neurological deficits. No fever, chills, or cough. No PND or orthopnea, but she has some lower extremity edema and upper epigastric area swelling, maybe some weight gain. She had no bleeding. She is on continued Xarelto therapy. No stroke-like symptoms. REVIEW OF SYSTEMS: Rest of 12-point review of system otherwise unremarkable. PAST MEDICAL HISTORY: Past history as above. I have seen this lady in September 2019 for an episode of narrow complex tachycardia, responding to diltiazem. She has also considered Multaq, but due to financial issues, she is not taking that. She has been on metoprolol at home, but with episodes of bradycardia. Rest of review of system otherwise unremarkable. Past history also includes obesity, obstructive sleep apnea, smoking. SOCIAL HISTORY: She is a former smoker, but was over 50 years. One to two drinks a day. Denies drug use. She lives with her . FAMILY HISTORY: Not contributory. OBJECTIVE DATA: VITAL SIGNS: Blood pressure is 144/70, heart rate 84, respirations 13, temperature 97.7 this afternoon. GENERAL: Reveals alert and oriented woman, in no apparent distress. NECK: Supple. Jugular veins not distended. CHEST: Coarse without crackles. HEART: Sounds are regular to rate and rhythm. No murmur or gallop. ABDOMEN: Benign. Bowel sounds positive. EXTREMITIES: Lower extremities without edema, clubbing, or cyanosis. Pulses are adequate. NEUROLOGIC: The patient is nonfocal. MUSCULOSKELETAL: Without joint swelling or deformity. SKIN: Without rash. DATABASE: EKG is reviewed. Initial EKG reveals sinus bradycardia with PACs, rate of 49 beats per minute, occasional non-conducted PACs were noted. Subsequent EKG from August 25 at 5:11 p.m., reveals a coarse atrial fibrillation with rate of 57 beats per minute. Sinus rhythm is noted again intermittently during hospital stay, also she developed sudden nonsustained atrial tachycardia, like similar to her prior EKG noted in last September. She also has episodes of atrial flutter with clear large flutter waves, which could be typical isthmus dependent in morphology. We discussed these issues with her. She clearly has multi-circuit atrial arrhythmias. Radiofrequency ablation of atrial flutter circuit aloneor even additional SVT ablation may not eliminate all her arrhythmias. She might still need AV jenny blocking or antiarrhythmic agents after that. On the other hand, bradycardia might be a limiting factor in these medications. She clearly has tachy-nilsa syndrome. We discussed utility of pacemaker in this condition, possibly with anti- tachycardia pacing capacity. Could be considered starting low-dose sotalol subsequently. Due to borderline renal function, high-dose sotalol might not be a good option. Multaq would be a better alternative. Flecainide may be suboptimal due to her history of coronary artery disease. Amiodarone could be considered, but with the risk of potential long-term pulmonary side effects. Anticoagulation will be briefly hold for pacemaker implant, but should be resumed afterwards. Should the atrial arrhythmias recur and not respond to these efforts, ablation options could be also considered. PLAN: 1. My plan is, in short, proceed with dual-chamber pacemaker implantation and consider Multaq versus sotalol afterwards. Also increasing beta izzy/calcium channel blockers could be considered after pacemaker implant. 2. Hold anticoagulants and resume Xarelto after pacemaker is implanted. Job ID: [id number] [facility]
--- NOTE | 2020-08-28 13:22 | PDOC.HOSPP ---
- Subjective Encounter Date: 08/28/20 Encounter Time: 13:20 Subjective: f/u for atrial arrhythmia and tachy-nilsa syndrome with plans for PM placement today. No new complaints currently. - Objective Vital Signs & Weight: Vital Signs (12 hours) Temp Pulse Resp BP Pulse Ox 08/28/20 08:25 98 F 76 16 150/69 H 99 08/28/20 03:39 98.2 F 73 19 122/65 98 Weight Weight 195 lb I&O: 08/27/20 08/28/20 08/29/20 06:59 06:59 06:59 Intake Total 1200 780 Output Total 400 Balance 800 780 Result Diagrams: 08/28/20 04:06 08/28/20 04:06 Additional Labs: Accuchecks 08/27/20 08/27/20 21:40 17:28 POC Glucose 182 H 119 H Radiology Reviewed by me: Yes (Echo - EF 50-55%, I/III diast dysfxn, GENTRY) EKG Reviewed by me: Yes (Tele - SR with transient A-fib/flutter) Hospitalist ROS - Medication Medications: Active Medications Generic Name Dose Route Start Last Admin Trade Name Freq PRN Reason Stop Dose Admin Aspirin 81 mg 08/26/20 09:00 08/28/20 08:30 Aspirin 81 Mg Enteric Coated Tablet PO 81 mg DAILY VALENTIN Administration Brimonidine Tartrate 1 drop 08/25/20 21:00 08/28/20 08:29 Brimonidine Tartrate 0.2% Ophth Soln 5 Ml Bottle L EYE 1 drop BID VALENTIN Administration Insulin Human Lispro 0 units 08/25/20 15:20 08/26/20 11:48 Humalog 300 Units/3 Ml Vial SC 3 unit .MILD SLIDING SCALE PRN Administration Mild Correctional Scale Isosorbide Mononitrate 30 mg 08/26/20 09:00 08/28/20 08:30 Isosorbide Mononitrate Er 30 Mg Tab PO 30 mg DAILY VALENTIN Administration Latanoprost 1 drop 08/25/20 21:00 08/27/20 21:24 Latanoprost 0.005% Ophth Soln 2.5 Ml Bottle L EYE 1 drop HS VALENTIN Administration Magnesium Hydroxide 30 ml 08/26/20 15:05 08/26/20 15:32 Milk Of Magnesia 30 Ml Udcup PO 30 ml DAILYPRN PRN Administration Constipation Melatonin 6 mg 08/25/20 21:34 08/25/20 22:29 Melatonin 3 Mg Tab PO 6 mg HS PRN Administration Insomnia - Exam General Appearance: NAD, awake alert Eye: PERRL, anicteric sclera ENT: normocephalic atraumatic, no oropharyngeal lesions Neck: supple, symmetric, no JVD, no thyromegaly, no lymphadenopathy Heart: RRR, no gallops, no rubs, normal peripheral pulses Heart - other findings: S1, S2 Respiratory: CTAB, no wheezes, no rales, no ronchi, normal chest expansion, no tachypnea Gastrointestinal: soft, non-tender, non-distended, normal bowel sounds, no palpable masses Extremities: no cyanosis, no clubbing, no edema Skin: normal turgor, no lesions Neurological: cranial nerve grossly intact, no new deficit Musculoskeletal: normal tone, generalized weakness Psychiatric: normal affect, A&O x 3 Hosp A/P (1) Tachy-nilsa syndrome Code(s): I49.5 - SICK SINUS SYNDROME Status: Acute Plan: Plan for PM placement later this pm (2) Atrial fibrillation Code(s): I48.91 - UNSPECIFIED ATRIAL FIBRILLATION Status: Chronic Qualifiers: Atrial fibrillation type: paroxysmal Qualified Code(s): I48.0 - Paroxysmal atrial fibrillation Plan: Likely will continue with Xarelto after PM placement, considering anti-a rrhythmic options (3) CAD (coronary artery disease) Code(s): I25.10 - ATHSCL HEART DISEASE OF [place] CORONARY ARTERY W/O ANG PCTRS Status: Chronic (4) CKD (chronic kidney disease), stage III Code(s): N18.30 - CHRONIC KIDNEY DISEASE, STAGE 3 UNSPECIFIED Status: Chronic (5) DM II (diabetes mellitus, type II), controlled Code(s): E11.9 - TYPE 2 DIABETES MELLITUS WITHOUT COMPLICATIONS Status: Chr onic (6) Anemia in CKD (chronic kidney disease) Code(s): N18.9 - CHRONIC KIDNEY DISEASE, UNSPECIFIED; D63.1 - ANEMIA IN CHRONIC KIDNEY DISEASE Status: Chronic - Plan plan discussed w/ family, renal social worker, out of bed/ambulate, DVT proph w/SCDs Stable currently Plan for PM placement 08/28 Continue ASA/Nitro Hold Metoprolol Albuterol nebs q8h prn Lasix 20mg IV x 1 dose AM lab: BMP, H/H
[2020-08-28] MEDS ORDERED: Levofloxacin 500 mg/D5W 100 ml Premix Bag ONE (14:25)
[2020-08-28] MEDS ORDERED: Clindamycin/D5W 900 mg/50 ml Premix Bag ONE (14:25)
[2020-08-28] MEDS ORDERED: Lidocaine 1% (PF) 30 ML VIAL ONE ×2 (14:34→15:31)
[2020-08-28] MEDS ORDERED: Fentanyl 100 MCG/2 ML VIAL ONE ×2 (15:13→15:43)
[2020-08-28] MEDS ORDERED: Midazolam HCl 2 mg/2 ml Vial ONE (15:13)
--- NOTE | 2020-08-28 17:42 | PDOC.CPN ---
- Subjective Date: 08/28/20 Time: 17:41 - Review of Systems General: denies: fever/chills, weight/appetite/sleep changes, night sweats, fatigue Respiratory: denies: cough, congestion, shortness of breath, exercise intolerance Cardiovascular: denies: chest pain, palpitation, edema, paroxysmal nocturnal dyspnea, orthopnea Gastrointestinal: denies: nausea, vomiting, diarrhea, constipation, abd pain, GI bleeding Musculoskeletal: denies: pain, tenderness, stiffness, swelling, arthriti s/arthralgias Neurological: denies: numbness, syncope, seizure, weakness - Objective Allergies/Adverse Reactions: Allergies Allergy/AdvReac Type Severity Reaction Status Date / Time apixaban [From Eliquis] Allergy Verified 08/25/20 14:50 fluticasone [From Flonase] Allergy Verified 08/25/20 14:50 iodine Allergy Verified 06/06/20 18:27 latex Allergy Verified 08/25/20 14:50 lisinopril Allergy COUGH Verified 06/06/20 18:27 Penicillins Allergy Verified 06/06/20 18:27 Sulfa (Sulfonamide Allergy "makes me Verified 06/06/20 18:27 Antibiotics) feel terrible" Visit Medications: Current Medications Acetaminophen (Acetaminophen 325 Mg Tab) 650 mg PO Q4H PRN PRN Reason: Headache/Fever/Mild Pain (1-3) Albuterol Sulfate (Albuterol Sulfate 1.25 Mg/3 Ml Neb) 1.25 mg NEB [id number] PRN PRN Reason: Wheezing Aspirin (Aspirin 81 Mg Enteric Coated Tablet) 81 mg PO DAILY [facility] Last Admin: 08/28/20 08:30 Dose: 81 mg Documented by: Brimonidine Tartrate (Brimonidine Tartrate 0.2% Ophth Soln 5 Ml Bottle) 1 drop L EYE BID [facility] Last Admin: 08/28/20 08:29 Dose: 1 drop Documented by: Buspirone HCl (Buspirone Hcl 5 Mg Tab) 5 mg PO BID PRN PRN Reason: Anxiety Dextrose/Water (Dextrose 50% Abboject 50 Ml Syringe) 25 gm SLOW IVP PRN PRN PRN Reason: Hypoglycemia Dronedarone (Dronedarone Hcl 400 Mg Tab) 400 mg PO BID-[facility] Glucagon (Glucagon 1 Mg/Ml Vial) 1 mg IM PRN PRN PRN Reason: Hypoglycemia Dextrose/Water (D5w) 1,000 mls @ 0 mls/hr IV .Q0M PRN PRN Reason: Hypoglycemia Insulin Human Lispro (Humalog 300 Units/3 Ml Vial) 0 units SC .MILD SLIDING SCALE PRN PRN Reason: Mild Correctional Scale Last Admin: 08/26/20 11:48 Dose: 3 unit Documented by: Insulin Human Lispro (Humalog 300 Units/3 Ml Vial) 0 units SC .BEDTIME SLIDING SC PRN PRN Reason: Bedtime Correctional Scale Isosorbide Mononitrate (Isosorbide Mononitrate Er 30 Mg Tab) 30 mg PO DAILY [facility] Last Admin: 08/28/20 08:30 Dose: 30 mg Documented by: Latanoprost (Latanoprost 0.005% Ophth Soln 2.5 Ml Bottle) 1 drop L EYE HS [facility] Last Admin: 08/27/20 21:24 Dose: 1 drop Documented by: Magnesium Hydroxide (Milk Of Magnesia 30 Ml Udcup) 30 ml PO DAILYPRN PRN PRN Reason: Constipation Last Admin: 08/26/20 15:32 Dose: 30 ml Documented by: Melatonin (Melatonin 3 Mg Tab) 6 mg PO HS PRN PRN Reason: Insomnia Last Admin: 08/25/20 22:29 Dose: 6 mg Documented by: Ondansetron HCl (Ondansetron Pf 4 Mg/2 Ml Vial) 4 mg IVP Q6H PRN PRN Reason: Nausea/Vomiting Vital Signs & Weight: Vital Signs Temp Pulse Resp BP Pulse Ox 08/28/20 16:00 98.4 F 81 16 123/59 L 98 08/28/20 08:25 98 F 76 16 150/69 H 99 Weight 195 lb - Physical Exam General: alert & oriented x3 HEENT: mucus membranes moist Neck: supple neck Cardiac: regular rate and rhythm Lungs: normal breath sounds Neuro: grossly intact Abdomen: active bowel sounds Extremities: 1+ LE edema Skin: clear Musculoskeletal: no pain - Labs Result Diagrams: 08/28/20 04:06 08/28/20 04:06 Troponin/CKMB Troponin I Less than 0.010 ng/mL (< 0.028) 08/25/20 15:06 - Telemetry Sinus rhythms and dysrhythmias: sinus rhythm - Assessment/Plan Assessment/Plan: 1. Paroxysmal afib 2. PAroxysmal a flutter 3. Tachy nilsa syndrome 4. CAD 5. S/P CABG PLAN: - PPM today - Start Xarelto tomorrow. - Dronedarone 400 mg BID after PPM placed. - Home tomorrow if stable.
--- NOTE | 2020-08-28 17:44 | RAD ---
SINGLE VIEW OF THE CHEST: 08/28/20 COMPARISON: 08/25/20 HISTORY: Status post cardiac pacemaker placement. FINDINGS: Single view of the chest shows a normal sized cardiomediastinal silhouette. The patient is status pos t CABG. There is a left subclavian pacemaker with leads in the right atrium and ventricle. No pneumot horax is seen. No consolidation, mass, or pleural effusion. IMPRESSION: Status post pacemaker placement without evidence of complication. POS: EAA
[2020-08-28] MEDS: Dronedarone HCl 400 MG TAB PO SCH (17:59)
[2020-08-28] MEDS ORDERED: Acetaminophen/Codeine 30-300mg Tablet PO PRN ×2 (20:00)
[2020-08-28] MEDS: Doxycycline 100 MG CAP PO SCH (20:13)
[2020-08-28] MEDS: Latanoprost 0.005% Ophth Soln 2.5 ml Bottle L EYE SCH (20:13)
[2020-08-29] MEDS: Dronedarone HCl 400 MG TAB PO SCH (08:49)
[2020-08-29] MEDS: Aspirin 81 mg Enteric Coated Tablet PO SCH (08:49)
[2020-08-29] MEDS: Doxycycline 100 MG CAP PO SCH ×2 (08:49→20:08)
[2020-08-29] MEDS: Brimonidine Tartrate 0.2% Ophth Soln 5 ml Bottle L EYE SCH ×2 (08:54→20:08)
[2020-08-29] MEDS ORDERED: Morphine 2 MG/ML VIAL SLOW IVP PRN (12:26)
--- NOTE | 2020-08-29 13:00 | PDOC.CPN ---
- Subjective Date: 08/29/20 Time: 12:32 Interval history: She had episodes of chest pain that correlated with rapid afib and termination from her ppm. - Review of Systems General: denies: fever/chills, weight/appetite/sleep changes, night sweats, fatigue Respiratory: denies: cough, congestion, shortness of breath, exercise intol erance Cardiovascular: reports: chest pain. denies: palpitation, edema, paroxysmal nocturnal dyspnea, orthopnea Gastrointestinal: denies: nausea, vomiting, diarrhea, constipation, abd pain, GI bleeding Musculoskeletal: denies: pain, tenderness, stiffness, swelling, arthritis/arthralgias Neurological: denies: numbness, syncope, seizure, weakness - Objective Allergies/Adverse Reactions: Allergies Allergy/AdvReac Type Severity Reaction Status Date / Time apixaban [From Eliquis] Allergy Verified 08/25/20 14:50 fluticasone [From Flonase] Allergy Verified 08/25/20 14:50 iodine Allergy Verified 06/06/20 18:27 latex Allergy Verified 08/25/20 14:50 lisinopril Allergy COUGH Verified 06/06/20 18:27 Penicillins Allergy Verified 06/06/20 18:27 Sulfa (Sulfonamide Allergy "makes me Verified 06/06/20 18:27 Antibiotics) feel terrible" Visit Medications: Current Medications Acetaminophen/Codeine Phosphate (Acetaminophen/Codeine 30-300mg Tablet) 1 tab PO Q4H PRN PRN Reason: Mild Pain (1-3) Last Admin: 08/29/20 06:31 Dose: 1 tab Documented by: Acetaminophen/Codeine Phosphate (Acetaminophen/Codeine 30-300mg Tablet) 2 tab PO Q4H PRN PRN Reason: Moderate Pain (4-6) Albuterol Sulfate (Albuterol Sulfate 1.25 Mg/3 Ml Neb) 1.25 mg NEB [id number] PRN PRN Reason: Wheezing Aspirin (Aspirin 81 Mg Enteric Coated Tablet) 81 mg PO DAILY [facility] Last Admin: 08/29/20 08:49 Dose: 81 mg Documented by: Brimonidine Tartrate (Brimonidine Tartrate 0.2% Ophth Soln 5 Ml Bottle) 1 drop L EYE BID [facility] Last Admin: 08/29/20 08:54 Dose: 1 drop Documented by: Buspirone HCl (Buspirone Hcl 5 Mg Tab) 5 mg PO BID PRN PRN Reason: Anxiety Dextrose/Water (Dextrose 50% Abboject 50 Ml Syringe) 25 gm SLOW IVP PRN PRN PRN Reason: Hypoglycemia Doxycycline Hyclate (Doxycycline 100 Mg Cap) 100 mg PO BID [facility] Stop: 09/04/20 09:01 Last Admin: 08/29/20 08:49 Dose: 100 mg Documented by: Dronedarone (Dronedarone Hcl 400 Mg Tab) 400 mg PO BID-[facility] Last Admin: 08/29/20 08:49 Dose: 400 mg Documented by: Glucagon (Glucagon 1 Mg/Ml Vial) 1 mg IM PRN PRN PRN Reason: Hypoglycemia Dextrose/Water (D5w) 1,000 mls @ 0 mls/hr IV .Q0M PRN PRN Reason: Hypoglycemia Insulin Human Lispro (Humalog 300 Units/3 Ml Vial) 0 units SC .MILD SLIDING SCALE PRN PRN Reason: Mild Correctional Scale Last Admin: 08/26/20 11:48 Dose: 3 unit Documented by: Insulin Human Lispro (Humalog 300 Units/3 Ml Vial) 0 units SC .BEDTIME SLIDING SC PRN PRN Reason: Bedtime Correctional Scale Isosorbide Mononitrate (Isosorbide Mononitrate Er 30 Mg Tab) 30 mg PO DAILY [facility] Last Admin: 08/29/20 08:49 Dose: 30 mg Documented by: Latanoprost (Latanoprost 0.005% Ophth Soln 2.5 Ml Bottle) 1 drop L EYE HS [facility] Last Admin: 08/28/20 20:13 Dose: 1 drop Documented by: Magnesium Hydroxide (Milk Of Magnesia 30 Ml Udcup) 30 ml PO DAILYPRN PRN PRN Reason: Constipation Last Admin: 08/26/20 15:32 Dose: 30 ml Documented by: Melatonin (Melatonin 3 Mg Tab) 6 mg PO HS PRN PRN Reason: Insomnia Last Admin: 08/25/20 22:29 Dose: 6 mg Documented by: Morphine Sulfate (Morphine 2 Mg/Ml Vial) 2 mg SLOW IVP Q4H PRN PRN Reason: PAIN 4-10 Ondansetron HCl (Ondansetron Pf 4 Mg/2 Ml Vial) 4 mg IVP Q6H PRN PRN Reason: Nausea/Vomiting Sodium Chloride (Flush - Normal Saline 10 Ml Syringe) 10 ml IVF PRN PRN PRN Reason: Saline Flush Vital Signs & Weight: Vital Signs Temp Pulse Resp BP BP Pulse Ox 08/29/20 11:56 98.4 F 78 18 175/72 H 98 08/29/20 08:47 147/85 H 08/29/20 07:25 98.1 F 79 18 132/66 97 08/29/20 03:44 98.2 F 77 16 128/61 99 Weight 195 lb - Physical Exam General: alert & oriented x3 HEENT: mucus membranes moist Neck: supple neck Cardiac: regular rate and rhythm Lungs: normal breath sounds Neuro: grossly intact Abdomen: active bowel sounds Extremities: no edema Skin: clear Musculoskeletal: no pain - Labs Result Diagrams: 08/28/20 04:06 08/28/20 04:06 Troponin/CKMB Troponin I Less than 0.010 ng/mL (< 0.028) 08/25/20 15:06 - Telemetry Sinus rhythms and dysrhythmias: sinus rhythm Supraventricular conduction: atrial fibrillation - Assessment/Plan Assessment/Plan: 1. Paroxysmal afib 2. Paroxysmal aflutter 3. Tachy nilsa syndrome 4. CAD 5. S/P CABG 6. S/P PPM placement. PLAN: - Start Xarelto today - Dronedarone 400 mg BID - Echocardiogram and trend troponins. ADDENDUM: - Echo showed no dignificant effusion, difficult to tell but clinically not in tamponade. Symptoms correlated with ATP for rapid afib and this has been adjusted. - Will continue to trend troponins.
--- NOTE | 2020-08-29 15:10 | PDOC.EP ---
- Subjective Date: 08/29/20 Time: 08:00 Interval History: multicircuit atrial arrhythmias and sinus node disease s/p dual chamber ppm implant She is not interested in ablation and prefers medical management of her arrhythmias. Otherwise she feels fair today post PPM implant - Review of Systems Constitutional: reports: chills, weakness Respiratory: reports: cough, pleuritic pain, shortness of breath Cardiology: reports: chest pain, edema, heart racing, light headedness Gastrointestinal: reports: abdominal pain, constipation, diarrhea Musculoskeletal: reports: unstable gait, falls, leg pain - Objective Allergies/Adverse Reactions: Allergies Allergy/AdvReac Type Severity Reaction Status Date / Time apixaban [From Eliquis] Allergy Verified 08/25/20 14:50 fluticasone [From Flonase] Allergy Verified 08/25/20 14:50 iodine Allergy Verified 06/06/20 18:27 latex Allergy Verified 08/25/20 14:50 lisinopril Allergy COUGH Verified 06/06/20 18:27 Penicillins Allergy Verified 06/06/20 18:27 Sulfa (Sulfonamide Allergy "makes me Verified 06/06/20 18:27 Antibiotics) feel terrible" Current Medications Acetaminophen/Codeine Phosphate (Acetaminophen/Codeine 30-300mg Tablet) 1 tab PO Q4H PRN PRN Reason: Mild Pain (1-3) Last Admin: 08/29/20 06:31 Dose: 1 tab Documented by: Acetaminophen/Codeine Phosphate (Acetaminophen/Codeine 30-300mg Tablet) 2 tab PO Q4H PRN PRN Reason: Moderate Pain (4-6) Albuterol Sulfate (Albuterol Sulfate 1.25 Mg/3 Ml Neb) 1.25 mg NEB [id number] PRN PRN Reason: Wheezing Amiodarone HCl (Amiodarone 200 Mg Tab) 400 mg PO BID [facility] Aspirin (Aspirin 81 Mg Enteric Coated Tablet) 81 mg PO DAILY [facility] Last Admin: 08/29/20 08:49 Dose: 81 mg Documented by: Brimonidine Tartrate (Brimonidine Tartrate 0.2% Ophth Soln 5 Ml Bottle) 1 drop L EYE BID [facility] Last Admin: 08/29/20 08:54 Dose: 1 drop Documented by: Buspirone HCl (Buspirone Hcl 5 Mg Tab) 5 mg PO BID PRN PRN Reason: Anxiety Carvedilol (Carvedilol 3.125 Mg Tab) 3.125 mg PO BID-[facility] Dextrose/Water (Dextrose 50% Abboject 50 Ml Syringe) 25 gm SLOW IVP PRN PRN PRN Reason: Hypoglycemia Doxycycline Hyclate (Doxycycline 100 Mg Cap) 100 mg PO BID [facility] Stop: 09/04/20 09:01 Last Admin: 08/29/20 08:49 Dose: 100 mg Documented by: Glucagon (Glucagon 1 Mg/Ml Vial) 1 mg IM PRN PRN PRN Reason: Hypoglycemia Dextrose/Water (D5w) 1,000 mls @ 0 mls/hr IV .Q0M PRN PRN Reason: Hypoglycemia Insulin Human Lispro (Humalog 300 Units/3 Ml Vial) 0 units SC .MILD SLIDING SCALE PRN PRN Reason: Mild Correctional Scale Last Admin: 08/26/20 11:48 Dose: 3 unit Documented by: Insulin Human Lispro (Humalog 300 Units/3 Ml Vial) 0 units SC .BEDTIME SLIDING SC PRN PRN Reason: Bedtime Correctional Scale Isosorbide Mononitrate (Isosorbide Mononitrate Er 30 Mg Tab) 30 mg PO DAILY [facility] Last Admin: 08/29/20 08:49 Dose: 30 mg Documented by: Latanoprost (Latanoprost 0.005% Ophth Soln 2.5 Ml Bottle) 1 drop L EYE [facility] Last Admin: 08/28/20 20:13 Dose: 1 drop Documented by: Magnesium Hydroxide (Milk Of Magnesia 30 Ml Udcup) 30 ml PO DAILYPRN PRN PRN Reason: Constipation Last Admin: 08/26/20 15:32 Dose: 30 ml Documented by: Melatonin (Melatonin 3 Mg Tab) 6 mg PO HS PRN PRN Reason: Insomnia Last Admin: 08/25/20 22:29 Dose: 6 mg Documented by: Morphine Sulfate (Morphine 2 Mg/Ml Vial) 2 mg SLOW IVP Q4H PRN PRN Reason: PAIN 4-10 Last Admin: 08/29/20 12:30 Dose: 2 mg Documented by: Ondansetron HCl (Ondansetron Pf 4 Mg/2 Ml Vial) 4 mg IVP Q6H PRN PRN Reason: Nausea/Vomiting Sodium Chloride (Flush - Normal Saline 10 Ml Syringe) 10 ml IVF PRN PRN PRN Reason: Saline Flush Vital Signs & Weight: Vital Signs Temp Pulse Pulse Pulse Resp BP BP 08/29/20 11:56 98.4 F 78 18 08/29/20 09:33 80 82 123/69 128/87 08/29/20 08:47 08/29/20 07:25 98.1 F 79 18 08/29/20 03:44 98.2 F 77 16 BP BP Pulse Ox Pulse Ox Pulse Ox 08/29/20 11:56 175/72 H 98 08/29/20 09:33 100 100 08/29/20 08:47 147/85 H 08/29/20 07:25 132/66 97 08/29/20 03:44 128/61 99 Weight 195 lb I/O: I/O 08/28/20 08/29/20 08/30/20 06:59 06:59 06:59 Intake Total 780 540 Output Total 600 Balance 780 -60 - Quality Measures Condition: Atrial Fibrillation/Flutter (hx or current) - Physical Exam General: alert & oriented x3, appears well, no apparent distress, speech clear, affect appropriate HEENT: mucus membranes moist, normocephaly, mucus membranes dry Neck: supple neck, midline trachea, no lymphadenopathy Cardiology: regular rate and rhythm, no murmur, PMI nondisplaced Lungs: clear to auscultation, normal breath sounds, no wheeze, rales, rhonchi Neurology: cranial nerve 2-12 intact, grossly intact, no lateralizing findings Abdomen: unremarkable, active bowel sounds, no pulsations/bruits Extremities: dry, strong pulses, warm Skin: left sided device, swelling. negative: bruising, drainage, hematoma - Labs Result Diagrams: 08/28/20 04:06 08/28/20 04:06 - EKG Interpretation EKG Method: Telemetry EKG shows: Sinus rhythm - Device Device: dual, pacemaker Device Result: [employer] - Assessment/Plan Assessment/Plan: 1. Multi-circuit atrial arrhythmias: a. Paroxysmal atrial fibrillation as well as alternating episodes of atrial flutter, possibly typical, isthmus dependent. b. Prior history of regular narrow complex SVT. 2. 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 Tachy-nilsa syndrome. 3. Coronary artery disease: a. Prior history of coronary artery bypass grafting surgery on December 07 019. b. History of preserved LVEF by most recent echo on 10/06/2019. c. Diastolic heart failure with lower extremity edema, mild fluid overload. 4. Elevated CHADS-VASc score with diabetes, coronary vascular disease, age, and gender at 5, on Xarelto for anticoagulation. Pacemaker: stable 1 day post dual chamber PPM implant. On doxycycline post PPM x 7 days. No pnuemothorax post implant. Repeat Atrial flutter was paceterminated during PPM implant, ATP enabled on PPM. Atrial arrhythmias: Diastolic heart failure,CAD, and chronic kidney disease. No Class 1c with CAD. Tikosyn and Sotalol are not idea with her CKD. Multaq or Amiodarone are options. Preferably multaq which would cost her >$600/mo out of pocket without insurance. Starting amiodarone and can look into patient assistance as an outpatient. Will require periodic toxicity screening while on amiodarone. CXR just done. Will check LFTs and Thyroid panel prior to DC to have baseline. 1300: Pt reporting chest pain which, based on the tele strip sent to me, is likely related to her atrial ATP therapies through her PPM. These can be disabled if needed. Could watch overnight and likely DC in AM if remains stable
[2020-08-29 15:29] LABS: CKMB 1.9 ng/mL (0-6.6)
[2020-08-29] MEDS: Carvedilol 3.125 MG TAB PO SCH (16:47)
[2020-08-29] MEDS: HumaLOG 300 UNITS/3 ML VIAL SC PRN (16:49)
--- NOTE | 2020-08-29 17:22 | PDOC.HOSPP ---
- Subjective Encounter Date: 08/29/20 Encounter Time: 17:20 Subjective: f/u for A-fib/flutter with tachy-nilsa syndrome s/p PPM. Feels ok overall. - Objective Vital Signs & Weight: Vital Signs (12 hours) Temp Pulse Pulse Pulse Resp BP BP 08/29/20 16:45 68 08/29/20 15:09 98.1 F 115 H 16 08/29/20 11:56 98.4 F 78 18 08/29/20 09:33 80 82 123/69 128/87 08/29/20 08:47 08/29/20 07:25 98.1 F 79 18 BP BP Pulse Ox Pulse Ox Pulse Ox 08/29/20 16:45 143/63 H 08/29/20 15:09 126/61 99 08/29/20 11:56 175/72 H 98 08/29/20 09:33 100 100 08/29/20 08:47 147/85 H 08/29/20 07:25 132/66 97 Weight Weight 195 lb I&O: 08/28/20 08/29/20 08/30/20 06:59 06:59 06:59 Intake Total 780 540 Output Total 600 Balance 780 -60 Result Diagrams: 08/28/20 04:06 08/28/20 04:06 Additional Labs: Accuchecks 08/29/20 08/29/20 08/29/20 16:46 10:44 05:34 POC Glucose 208 H 138 H 129 H 08/28/20 08/28/20 08/28/20 20:17 17:20 11:05 POC Glucose 226 H 129 H 151 H Laboratory Tests 10/02/19 10/04/19 08/25/20 13:34 16:30 09:45 Potassium Carbon Dioxide BUN Creatinine B-Natriuretic Peptide 133.4 H 242.0 H 355.1 H SARS-CoV-2 (PCR) 08/25/20 08/25/20 08/26/20 15:06 17:05 04:22 Potassium 4.4 Carbon Dioxide 21 L BUN 46 H Creatinine 1.37 H 1.40 H B-Natriuretic Peptide SARS-CoV-2 (PCR) Not Detected Radiology Reviewed by me: Yes (PCXR - PM in place, no acute changes) EKG Reviewed by me: Yes (Tele - AV pacing in 70's) Hospitalist ROS - Medication Medications: Active Medications Generic Name Dose Route Start Last Admin Trade Name Freq PRN Reason Stop Dose Admin Acetaminophen/Codeine Phosphate 1 tab 08/28/20 20:00 08/29/20 06:31 Acetaminophen/Codeine 30-300mg Tablet PO 1 tab Q4H PRN Administration Mild Pain (1-3) Aspirin 81 mg 08/26/20 09:00 08/29/20 08:49 Aspirin 81 Mg Enteric Coated Tablet PO 81 mg DAILY [facility] Administration Brimonidine Tartrate 1 drop 08/25/20 21:00 08/29/20 08:54 Brimonidine Tartrate 0.2% Ophth Soln 5 Ml Bottle L EYE 1 drop BID [facility] Administration Carvedilol 3.125 mg 08/29/20 17:00 08/29/20 16:47 Carvedilol 3.125 Mg Tab PO 3.125 mg BID-[facility] Administration Doxycycline Hyclate 100 mg 08/28/20 21:00 08/29/20 08:49 Doxycycline 100 Mg Cap PO 09/04/20 09:01 100 mg BID [facility] Administration Insulin Human Lispro 0 units 08/25/20 15:20 08/29/20 16:49 Humalog 300 Units/3 Ml Vial SC 3 unit .MILD SLIDING SCALE PRN Administration Mild Correctional Scale Isosorbide Mononitrate 30 mg 08/26/20 09:00 08/29/20 08:49 Isosorbide Mononitrate Er 30 Mg Tab PO 30 mg DAILY [facility] Administration Latanoprost 1 drop 08/25/20 21:00 08/28/20 20:13 Latanoprost 0.005% Ophth Soln 2.5 Ml Bottle L EYE 1 drop HS [facility] Administration Magnesium Hydroxide 30 ml 08/26/20 15:05 08/26/20 15:32 Milk Of Magnesia 30 Ml Udcup PO 30 ml DAILYPRN PRN Administration Constipation Melatonin 6 mg 08/25/20 21:34 08/25/20 22:29 Melatonin 3 Mg Tab PO 6 mg HS PRN Administration Insomnia Morphine Sulfate 2 mg 08/29/20 12:26 08/29/20 12:30 Morphine 2 Mg/Ml Vial SLOW IVP 2 mg Q4H PRN Administration PAIN 4-10 - Exam General Appearance: NAD, awake alert Eye: PERRL, anicteric sclera ENT: normocephalic atraumatic, no oropharyngeal lesions Neck: supple, symmetric, no JVD, no thyromegaly, no lymphadenopathy Heart: RRR, no gallops, no rubs, normal peripheral pulses Heart - other findings: S1, S2 Respiratory: CTAB, no wheezes, no rales, no ronchi, normal chest expansion Gastrointestinal: soft, non-tender, non-distended, normal bowel sounds, no palpable masses Extremities: no cyanosis, no clubbing, no edema Skin: normal turgor, no lesions Neurological: cranial nerve grossly intact, no new deficit Musculoskeletal: normal tone, generalized weakness Psychiatric: normal affect, A&O x 3 Hosp A/P (1) Tachy-nilsa syndrome Code(s): I49.5 - SICK SINUS SYNDROME Status: Acute Plan: s/p PPM, AV pacing on telemetry, continue Amiodarone loading (2) Atrial fibrillation Code(s): I48.91 - UNSPECIFIED ATRIAL FIBRILLATION Status: Chronic Qualifiers: Atrial fibrillation type: paroxysmal Qualified Code(s): I48.0 - Paroxysmal atrial fibrillation Plan: Continue Amiodarone 400mg BID, ASA (3) CAD (coronary artery disease) Code(s): I25.10 - ATHSCL HEART DISEASE OF [place] CORONARY ARTERY W/O ANG PCTRS Status: Chronic (4) CKD (chronic kidney disease), stage III Code(s): N18.30 - CHRONIC KIDNEY DISEASE, STAGE 3 UNSPECIFIED Status: Chronic (5) DM II (diabetes mellitus, type II), controlled Code(s): E11.9 - TYPE 2 DIABETES MELLITUS WITHOUT COMPLICATIONS Status: Chronic (6) Anemia in CKD (chronic kidney disease) Code(s): N18.9 - CHRONIC KIDNEY DISEASE, UNSPECIFIED; D63.1 - ANEMIA IN CHRONIC KIDNEY DISEASE Status: Chronic - Plan continue antibiotics, PT/OT, dialysis social worker, out of bed/ambulate, DVT proph w/SCDs Stable currently s/p PPM 08/28 Continue ASA/Nitro Resume Metoprolol Amiodarone 400mg BID loading Albuterol nebs q8h prn AM lab: LFT's, FT4,T3, TSH
--- NOTE | 2020-08-29 17:23 | EKG ---
Test Reason : C/O CHEST PAIN Blood Pressure : / mmHG Vent. Rate : 081 BPM Atrial Rate : 081 BPM P-R Int : 208 ms QRS Dur : 094 ms QT Int : 438 ms P-R-T Axes : 028 044 127 degrees QTc Int : 508 ms AV sequential or dual chamber electronic pacemaker When compared with ECG of 29-AUG-2020 07:18, (Unconfirmed) Vent. rate has increased BY 4 BPM Confirmed by RUBEN LEVINE (2) on 08/29/2020 5:23:18 PM Referred By: TIERRA Confirmed By:RUBEN LEVINE
--- NOTE | 2020-08-29 17:23 | EKG ---
Test Reason : Blood Pressure : / mmHG Vent. Rate : 077 BPM Atrial Rate : 077 BPM P-R Int : 144 ms QRS Dur : 170 ms QT Int : 474 ms P-R-T Axes : 026 083 -84 degrees QTc Int : 536 ms AV sequential or dual chamber electronic pacemaker When compared with ECG of 26-AUG-2020 12:41, (Unconfirmed) Electronic ventricular pacemaker has replaced Sinus rhythm Confirmed by RUBEN LEVINE (2) on 08/29/2020 5:22:48 PM Referred By: TRAE Confirmed By:RUBEN LEVINE
[2020-08-29 18:51] LABS: CKMB 1.7 ng/mL (0-6.6)
[2020-08-29] MEDS: Amiodarone 200 MG TAB PO SCH (20:08)
[2020-08-29] MEDS: Latanoprost 0.005% Ophth Soln 2.5 ml Bottle L EYE SCH (20:08)
[2020-08-30 04:35] LABS: ALT (SGPT) 13 U/L (8-55); AST (SGOT) 19 U/L (5-34); Albumin 3.3 g/dL (3.4-4.8); Alkaline Phosphatase 65 U/L (40-110); Bilirubin, Direct 0.2 mg/dL (0.1-0.3); Bilirubin, Total 0.3 mg/dL (0.2-1.2); Protein, Total 5.9 g/dL (6.0-8.3)
[2020-08-30 04:54] LABS: Free T4 (Free Thyroxine) 1.12 ng/dL (0.70-1.48)
[2020-08-30 04:55] LABS: Thyroid Stimulating Hormone 2.2344 uIU/mL (0.35-4.94)
[2020-08-30 04:56] LABS: CKMB 1.2 ng/mL (0-6.6)
[2020-08-30] MEDS: Carvedilol 3.125 MG TAB PO SCH (08:00)
[2020-08-30] MEDS: Amiodarone 200 MG TAB PO SCH (08:00)
[2020-08-30] MEDS: Brimonidine Tartrate 0.2% Ophth Soln 5 ml Bottle L EYE SCH (08:01)
[2020-08-30] MEDS: Aspirin 81 mg Enteric Coated Tablet PO SCH (08:01)
[2020-08-30] MEDS: Doxycycline 100 MG CAP PO SCH (08:02)
[2020-08-30 11:07] VITALS: TEMP 97.9
[2020-08-30 11:23] VITALS: BP 189/78
--- NOTE | 2020-08-30 11:26 | DIS ---
DATE OF ADMISSION: 08/25/2020 DATE OF DISCHARGE: 08/30/2020 DISCHARGE DIAGNOSES: 1. Tachy-nilsa syndrome, status post pacemaker placement. 2. Atrial fibrillation/atrial flutter. 3. Coronary artery disease, chronic and stable. 4. Chronic kidney disease stage 3. 5. Diabetes mellitus type 2, stable. 6. Anemia secondary to chronic kidney disease. CONSULTATIONS: 1. Dr. Portillo with Electrophysiology Service. 2. Dr. Garber with Cardiology Service. PERTINENT LABORATORY AND X-RAY FINDINGS: Creatinine ranged between 1.37 to 1.44. Estimated GFR ranged between 35 to 37. TSH 2.23, free T3 of 2.59, free T4 of 1.12. CBC showed a hemoglobin ranging between 10.6 to 11.0. COVID-19 PCR not detected, 08/25/2020. Portable chest x-ray dated 08/25/2020, showed no acute cardiopulmonary process. Portable chest x-ray dated 08/28/2020, showed interval placement of pacemaker device. 2D transthoracic echocardiogram dated 08/26/2020, showed technically-limited exam. Calculated ejection fraction of 50% to 55%. Grade 1/3 diastolic dysfunction. Apical hypokinesis. Moderate left atrial enlargement. Repeat 2D transthoracic echocardiogram dated 08/29/2020, showed ejection fraction of 55% to 60%. Diastolic function indeterminate due to atrial fibrillation. Apical hypokinesis. Moderate left atrial enlargement. Moderate tricuspid regurgitation. HOSPITAL COURSE: The patient was initially admitted to the telemetry unit after presenting with palpitations in the context of chronic atrial fibrillation on chronic anticoagulation with Xarelto. The patient also with significant inoperable coronary artery disease, presenting with atrial fibrillation with variable rates ranging between 35 to 85. In the emergency room, the patient underwent general evaluation including chest imaging showing no acute infiltrates. The patient received nitroglycerin paste, aspirin, and IV Lasix. The patient was evaluated by the Cardiology Service with telemetry monitoring showing evidence of bradycardia and tachycardia. The patient underwent 2D transthoracic echocardiogram showing overall preserved ejection fraction; however, due to the dysrhythmia, the patient was evaluated for potential tachy-nilsa syndrome. The patient was evaluated by the Electrophysiology Service and deemed an appropriate candidate to undergo a pacemaker placement, which the patient underwent successfully on 08/28/2020. The patient did experience episode of atrial tachycardia with adjustments to her pacemaker device. The patient overall tolerated the procedure well with stable vital signs and remaining afebrile. The patient was continued on amiodarone 400 mg b.i.d. as a loading dose and will continue for approximately 1 week after discharge, proceeding to tapering regimen. I have examined the patient at the time of discharge and discussed followup instructions. The patient verbalized understanding and agreement, ready for discharge on 08/30/2020. DISCHARGE MEDICATIONS: 1. Buspar 5 mg p.o. b.i.d. 2. Imdur 30 mg p.o. daily. 3. Latanoprost one drop to the left eye at bedtime. 4. Magnesium 250 mg p.o. daily. 5. Vitamin D3 of 1000 units p.o. daily. 6. Xarelto 20 mg p.o. at bedtime. 7. Amiodarone 400 mg p.o. b.i.d. x7 days, followed by 200 mg p.o. b.i.d. x7 days, followed by 200 mg p.o. daily. 8. Enteric-coated aspirin 81 mg p.o. daily. 9. Metoprolol tartrate 25 mg p.o. b.i.d. 10. Nitroglycerin 0.4 mg sublingually q.5 minutes p.r.n. chest pain. 11. Doxycycline 100 mg p.o. b.i.d. x7 days. 12. Brimonidine one drop to left eye b.i.d. FOLLOWUP: The patient may follow up with Dr. Danny Yo within 7 days of discharge. The patient will follow up with Dr. Portillo with Electrophysiology Service within 2 weeks of discharge. CONDITION ON DISCHARGE: Stable. ACTIVITY: Ad-yecenia. DIET: Heart healthy. CODE STATUS: Full. DISPOSITION: To home, 08/30/2020. TIME SPENT: Total time preparing and coordinating discharge, 35 minutes. Job ID: [id number]
[2020-08-30] MEDS ORDERED: Non-Formulary Item 1 EACH (Rivaroxaban [Xarelto] 20 MG Tablet) PO SCH (17:00)
[2020-08-30] MEDS ORDERED: Rivaroxaban 10 MG TAB PO SCH (17:00)
--- NOTE | 2020-08-30 17:27 | PDOC.EP ---
- Subjective Date: 08/30/20 Time: 08:00 Interval History: no new events overnight and no recurrent chest pain. she is eager to discharge home - Objective Allergies/Adverse Reactions: Allergies Allergy/AdvReac Type Severity Reaction Status Date / Time apixaban [From Eliquis] Allergy Verified 08/25/20 14:50 fluticasone [From Flonase] Allergy Verified 08/25/20 14:50 iodine Allergy Verified 06/06/20 18:27 latex Allergy Verified 08/25/20 14:50 lisinopril Allergy COUGH Verified 06/06/20 18:27 Penicillins Allergy Verified 06/06/20 18:27 Sulfa (Sulfonamide Allergy "makes me Verified 06/06/20 18:27 Antibiotics) feel terrible" Vital Signs & Weight: Vital Signs Temp Pulse Pulse Pulse Resp BP BP 08/30/20 11:06 97.9 F 70 16 08/30/20 10:02 78 72 189/78 H 137/61 08/30/20 10:00 08/30/20 07:52 97.7 F 86 16 BP BP Pulse Ox Pulse Ox 08/30/20 11:06 132/62 100 08/30/20 10:02 100 08/30/20 10:00 121/56 L 08/30/20 07:52 190/78 H 97 Weight 203 lb I/O: I/O 08/29/20 08/30/20 08/31/20 06:59 06:59 06:59 Intake Total 540 1440 Output Total 600 Balance -60 1440 - Quality Measures Condition: Atrial Fibrillation/Flutter (hx or current) CV meds: Xarelto: Yes - Physical Exam General: alert & oriented x3, appears well, no apparent distress, speech clear, affect appropriate HEENT: mucus membranes moist, normocephaly Neck: supple neck Cardiology: regular rate and rhythm, no murmur, regular rate, regular rhythm, PMI nondisplaced Lungs: clear to auscultation, normal breath sounds, normal exam, no wheeze, rales, rhonchi, no wheezes, no rales, no rhonchi Neurology: cranial nerve 2-12 intact, grossly intact, motor function intact, sensory function intact, negative rhomberg, coordination normal, no lateralizing findings Abdomen: unremarkable, active bowel sounds, soft, non-tender, no masses, no pulsations/bruits, no hepatosplenomegaly, HJR negative Skin: device site stable w/o swelling ( positive for swelling), bruising, left sided device, swelling. negative: drainage - Labs Result Diagrams: 08/28/20 04:06 08/28/20 04:06 - EKG Interpretation EKG Method: Telemetry EKG shows: Sinus rhythm - Device Device: dual, pacemaker Device Result: Fabkidstronic - Assessment/Plan Assessment/Plan: 1. Multi-circuit atrial arrhythmias: a. Paroxysmal atrial fibrillation as well as alternating episodes of atrial flut ter, possibly typical, isthmus dependent. b. Prior history of regular narrow complex SVT. 2. 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 Tachy-nilsa syndrome. 3. Coronary artery disease: a. Prior history of coronary artery bypass grafting surgery on December 07, 2018. b. History of preserved LVEF by most recent echo on 10/06/2019. c. Diastolic heart failure with lower extremity edema, mild fluid overload. 4. Elevated CHADS-VASc score with diabetes, coronary vascular disease, age, and gender at 5, on Xarelto for anticoagulation. Pacemaker: stable 1 day post dual chamber PPM implant. On doxycycline post PPM x 7 days. No pnuemothorax post implant. Repeat Atrial flutter was paceterminated during PPM implant, ATP enabled on PPM. if her current chest discomfort is experienced during ATP this could be disabled Atrial arrhythmias: Diastolic heart failure,CAD, and chronic kidney disease. No Class 1c with CAD. Tikosyn and Sotalol are not idea with her CKD. Multaq or Amiodarone are options. Preferably multaq which would cost her >$600/mo out of pocket without insurance. Starting amiodarone and can look into patient assistance as an outpatient. Will require periodic toxicity screening while on amiodarone. CXR just done. Will check LFTs and Thyroid panel prior to DC to have baseline. 08/30/20 okay for discharge on amiodarone taper: 400 mg p.o. b.i.d. x7 days, 200 mg p.o. b.i.d. x7 days, 200 mg p.o. daily thereafter continue Xarelto at discharge. 2 week wound device check will be arranged as an outpatient at my clinic. will begin process to help her apply for patient assistance with MultaTriumfant to avoid long-term antiarrhythmic therapy with amiodarone. continue post implant antibiotics x7 days.
--- NOTE | 2020-08-31 13:22 | EKG ---
Test Reason : Blood Pressure : / mmHG Vent. Rate : 057 BPM Atrial Rate : 326 BPM P-R Int : 000 ms QRS Dur : 092 ms QT Int : 428 ms P-R-T Axes : 000 034 012 degrees QTc Int : 416 ms Atrial fibrillation with slow ventricular response Nonspecific ST and T wave abnormality , probably digitalis effect Abnormal ECG When compared with ECG of 06-JUN-2020 17:01, Atrial fibrillation has replaced Sinus rhythm Vent. rate has decreased BY [address] no longer depressed in Lateral leads Nonspecific T wave abnormality now evident in Anterior leads T wave inversion no longer evident in Lateral leads Confirmed by DR. Bridget OROURKE ([id number]) on 08/31/2020 1:21:46 PM Referred By: HAVEN Confirmed By:DR. Bridget OROURKE
--- NOTE | 2020-08-31 13:23 | EKG ---
Test Reason : Blood Pressure : / mmHG Vent. Rate : 078 BPM Atrial Rate : 078 BPM P-R Int : 194 ms QRS Dur : 088 ms QT Int : 398 ms P-R-T Axes : 000 024 -53 degrees QTc Int : 453 ms Normal sinus rhythm Low voltage QRS Nonspecific T wave abnormality Abnormal ECG When compared with ECG of 25-AUG-2020 17:11, (Unconfirmed) Sinus rhythm has replaced Atrial fibrillation Inverted T waves have replaced nonspecific T wave abnormality in Lateral leads Confirmed by DR. Bridget OROURKE ([id number]) on 08/31/2020 1:23:31 PM Referred By: DANIELSON Confirmed By:DR. Bridget OROURKE
== END 2020-08-30 12:05 | disposition home or self-care (01) | DRG 243 ==
LOC: 2NO 13:50
PROVIDERS: ADMIT Family Medicine; ATTEND Family Medicine
PROC: 0JH606Z Insertion of Pacemaker, Dual Chamber into Chest Subcutaneous Tissue and Fascia, Open Approach (ICD-10-PCS; principal; 2020-08-28)
PROC: 02H63JZ Insertion of Pacemaker Lead into Right Atrium, Percutaneous Approach (ICD-10-PCS; 2020-08-28)
PROC: 02HK3JZ Insertion of Pacemaker Lead into Right Ventricle, Percutaneous Approach (ICD-10-PCS; 2020-08-28)
DX: I49.5 Sick sinus syndrome (principal); I48.92 Unspecified atrial flutter; I48.20 Chronic atrial fibrillation, unspecified; I47.1 Supraventricular tachycardia; I50.32 Chronic diastolic (congestive) heart failure; Z20.828 Contact with and (suspected) exposure to other viral communicable diseases; N18.30 Chronic kidney disease, stage 3 unspecified; E11.22 Type 2 diabetes mellitus with diabetic chronic kidney disease; D63.1 Anemia in chronic kidney disease; H40.9 Unspecified glaucoma; I48.0 Paroxysmal atrial fibrillation; Z79.01 Long term (current) use of anticoagulants; Z88.0 Allergy status to penicillin; Z88.2 Allergy status to sulfonamides; Z91.040 Latex allergy status; Z91.041 Radiographic dye allergy status; Z88.8 Allergy status to other drugs, medicaments and biological substances; Z79.82 Long term (current) use of aspirin; Z90.49 Acquired absence of other specified parts of digestive tract; Z95.1 Presence of aortocoronary bypass graft; Z90.710 Acquired absence of both cervix and uterus; Z85.828 Personal history of other malignant neoplasm of skin
CPT/HCPCS: 33249; 36415; 36416; 71045; 76942; 80048; 80076; 82553; 84439; 84443; 84481; 84484; 85014; 85018; 85025; 85049; 87635; 93005; 93010; 93306; 93798; 94640; 99152; 99153; C1785; C1898; J1940; J1956; J2001; J2250; J2270; J3010; J3370; J3490; U0003

== ENCOUNTER 2020-09-03 13:41 | Observation (INO) | payer MEDICARE ==
[2020-09-03] MEDS ORDERED: Zolpidem Tartrate 5 MG TAB PO PRN (15:20)
[2020-09-03] MEDS ORDERED: Senokot S 8.6-50 MG TAB PO PRN (15:20)
[2020-09-03] MEDS ORDERED: HYDROcodone/Acetaminophen 5/325 mg Tablet PO PRN (15:20)
[2020-09-03] MEDS ORDERED: Calcium Carbonate 500 MG ChewTAB PO PRN (15:20)
[2020-09-03] MEDS ORDERED: Loratadine 10 MG TAB PO PRN (15:20)
[2020-09-03] MEDS ORDERED: Diabetic Tussin 200 MG/10 ML UDCUP PO PRN (15:20)
[2020-09-03] MEDS ORDERED: Cepastat Lozenges 1 LOZ PO PRN (15:20)
[2020-09-03] MEDS ORDERED: Acetaminophen 325 MG TAB PO PRN (15:20)
[2020-09-03] MEDS ORDERED: Ondansetron ODT 4 MG TAB PO PRN (15:20)
[2020-09-03] MEDS ORDERED: Ondansetron PF 4 MG/2 ML Vial IVP PRN (15:20)
[2020-09-03] MEDS ORDERED: hydrALAZINE 20 MG/ML VIAL SLOW IVP PRN (15:20)
[2020-09-03] MEDS ORDERED: Sodium Chloride 0.65% Nasal 44 ML BOT EA NARE PRN (15:20)
[2020-09-03] MEDS ORDERED: Loperamide HCl 2 MG CAP PO PRN (15:20)
[2020-09-03] MEDS ORDERED: Bisacodyl 10 MG SUPP PR PRN (15:20)
[2020-09-03] MEDS ORDERED: Guaifenesin DM 100-10/5 ML UDCUP PO PRN (15:20)
[2020-09-03] MEDS ORDERED: busPIRone HCl 5 MG TAB PO PRN (15:27)
[2020-09-03] MEDS ORDERED: Nitroglycerin 0.4 MG TAB (25 Tab Bottle) SL PRN (15:27)
--- NOTE | 2020-09-03 16:09 | HP ---
PRIMARY CARE PHYSICIAN: Dr. Danny Yo. REASON FOR ADMISSION: Pacemaker site soft tissue infection. HISTORY OF PRESENT ILLNESS: An 80-year-old female who was recently admitted in the hospital on August 25, 2020. During that admission, the patient underwent pacemaker procedure. The patient stayed in the hospital till August 30, 2020. The patient was discharged home on doxycycline. The patient was doing well up until this morning. The patient was feeling fatigued and feeling chills. She had redness and swelling and pain around her pacemaker site on the left side of the chest. She was evaluated at [facility], where the patient had lactic acidosis and leukocytosis. Initially, the patient was slightly hypotensive that has improved with IV fluid. The patient was given cefepime and vancomycin. Subsequently, the patient was sent to hospital for further evaluation. Her lowest blood pressure was 95/44 at [facility]. She had EKG which showed atrial fibrillation and she also had runs of PVC in our hospital. The patient was feeling fatigued, tired, and body aches. She does not have any COVID-19 symptoms. She was tested negative on August 25. The patient does not want to go for further testing for COVID-19 during this hospital course. PAST MEDICAL HISTORY: Coronary artery disease, required recent CABG few months ago; chronic atrial fibrillation; melanoma; CKD, stage 3; glaucoma; dyslipidemia; hypertension; diabetes type 2, diet controlled; peripheral vascular disease; bilateral peripheral neuropathy. PAST SURGICAL HISTORY: Skin cancer removal, bilateral cataract surgery, appendicectomy, CABG, cholecystectomy, hysterectomy, and recent pacemaker placement. CURRENT HOME MEDICATIONS: 1. Brimonidine ophthalmic drops to left eye daily. 2. BuSpar 5 mg b.i.d. 3. Imdur 30 mg daily. 4. Xalatan eye drops at bedtime. 5. Magnesium 250 mg p.o. daily. 6. Vitamin D3 1000 units p.o. daily. 7. Xarelto 20 mg daily. 8. Amiodarone 400 mg twice daily. 9. Aspirin 81 mg daily. 10. Metoprolol 25 mg b.i.d. 11. Doxycycline 100 mg p.o. b.i.d. SOCIAL HISTORY: No smoking, no alcohol, no drugs. She lives at home with her . FAMILY HISTORY: Nothing significant. PAST PSYCHIATRIC HISTORY: Anxiety and depression. REVIEW OF SYSTEMS: All review of systems reviewed with her and negative except as mentioned in the HPI. EMERGENCY ROOM COURSE: The patient was given 1 L IV fluid, cefepime and vancomycin at [facility]. PHYSICAL EXAMINATION: VITAL SIGNS: Most recent vital signs; blood pressure 150/61, pulse 64, respiratory rate 20, temperature 98.3, saturation 100%Weight 88.4 kg. GENERAL: The patient is currently alert, awake, no obvious acute distress. HEENT: Head; normocephalic, atraumatic. EYES: Pupils are round and reactive to light without any conjunctivitis. ENT: Oropharynx within normal limits. Moist mucous membranes. No pharyngeal erythema. No exudate. NECK: Supple. No JVD. No meningeal signs of irritation. LUNGS: Clear to auscultation without any rhonchi or rales. CARDIAC: S1 and S2 irregular, no gross murmur elicited. No gallop. No rub. Chest wall pacemaker site is erythematous, tender, and swollen. ABDOMEN: Obesity noted, bowel sounds present, nontender, nondistended. No organomegaly. No mass. EXTREMITIES: No gross edema noted, chronic skin changes. SKIN: No skin rash. HEMATOLOGICAL SYSTEM: No lymphadenopathy. NEUROLOGIC: Nonfocal examination. SIGNIFICANT LABORATORY DATA: EKG showing atrial fibrillation with controlled ventricular response. ecg technician showing pacemaker rhythm. Chest x-ray based on my review, no acute cardiopulmonary process. CBC; WBC 11.5, hemoglobin 10.3, platelet of 237. BMP; sodium 139, potassium 4.2, chloride 105, carbon dioxide 20, BUN 44, creatinine 1.41, glucose 151, calcium 9.2. Lactic acid 2.3 and then 1.7. LFT; AST 22, ALT 15, alkaline phosphatase 72, albumin 3.5. BNP 149.3. Troponin negative. Urinalysis, leukocyte small. ALLERGIES: ELIQUIS, FLONASE, IODINE, LATEX, LISINOPRIL, PENICILLIN, SULFA. ASSESSMENT: 1. Lactic acidosis. 2. Leukocytosis. 3. Pacemaker site skin infection. 4. Tachy-nilsa syndrome with sick sinus syndrome, status post recent pacemaker. 5. Coronary artery disease with CABG. 6. CKD, stage 3. 7. Diabetes type 2, diet controlled. 8. Hypertension. 9. Dyslipidemia. 10. Anxiety and depression. PLAN: Observation to telemetry. Dr. Portillo will be consulted for evaluation. We will continue with cefepime 1 g q.12 hourly and vancomycin pharmacy adjusted dose, we will also consult Dr. Clark for his opinion. Her home medication including amiodarone, Imdur, Xarelto, aspirin, metoprolol will be continued while in hospital as per previous hospitalization. Her glaucoma eyedrops will be continued as well. DVT prophylaxis, no need of Lovenox because the patient is already on Xarelto therapy. GI prophylaxis, Pepcid 20 mg p.o. b.i.d. CODE STATUS: The patient is full code. The patient's is surrogate decision maker. DISPOSITION PLAN: Based on clinical course, likely 24 to 48 hours. Plan of care discussed with the patient and her at bedside in the emergency room. Job ID: [id number] MTDD
[2020-09-03] MEDS ORDERED: Rivaroxaban 10 MG TAB PO SCH (17:00)
[2020-09-03 17:44] VITALS: BMI 35.7
[2020-09-03 19:24] LABS: Bilirubin Negative (Negative); Blood, Urine Negative (Negative); Clarity Clear (Clear); Glucose, Urine (Dipstick) Normal (Negative); Ketone, Urine Negative (Negative); Leukocyte 75 Leu/uL (Negative); Nitrite Negative (Negative); Protein, Urine (Dipstick) Negative (Neg-Trace); RBC/HPF 0-3 HPF (0-3); Specific Gravity, Urine 1.011 (1.002-1.036); Squamous Epithelial 0-3 HPF (0-3); Urobilinogen Normal mg/dL (Less than 2); pH, Urine 5.5 (5.0-9.0)
[2020-09-03 19:25] LABS: Bacteria/HPF 1+ HPF (None Seen)
[2020-09-03] MEDS ORDERED: Latanoprost 0.005% Ophth Soln 2.5 ml Bottle L EYE SCH (21:00)
[2020-09-03] MEDS: Cefepime 1 GM in Sodium Chloride 0.9% 100 ML IVPB SCH (21:38)
[2020-09-03] MEDS: Metoprolol Tartrate 25 MG TAB PO SCH (21:39)
[2020-09-03] MEDS: Amiodarone 200 MG TAB PO SCH (21:39)
[2020-09-03] MEDS: Famotidine 20 MG TAB PO SCH (21:39)
[2020-09-03] MEDS: Brimonidine Tartrate 0.2% Ophth Soln 5 ml Bottle L EYE SCH (21:40)
--- NOTE | 2020-09-04 00:33 | CON ---
DATE OF CONSULTATION: 09/03/2020 HISTORY OF PRESENT ILLNESS: I am seeing Ms. Ornelas at our [facility] as electrophysiology underwriting consultant. Her problems are; 1. Acute pacemaker site swelling, likely hematoma. 2. 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 3. Recurrent atrial arrhythmia. Paroxysmal atrial fibrillation as well as episodes of atrial flutter. a. Prior history of regular narrow complex SVT- likely atrial tachycardia. b. Bradycardia with Multaq. Eventually switched to amiodarone due to stewart issues, currently in sinus rhythm. c. On chronic anticoagulation with Xarelto. 4. Diastolic heart failure with lower extremity edema. a. 2D echo from 08/29/2020 reveals LVEF of 55% to 60%, moderate left atrial enlargement, moderate tricuspid regurgitation. 5. Renal insufficiency. Creatinine 1.41. ALLERGIES: APIXABAN, FLUTICASONE, IODINE, LATEX, LISINOPRIL, PENICILLINS. MEDICATIONS ON DISCHARGE INCLUDED; 1. BUSPAR. 2. IMDUR. 3. LATANOPROST. 4. MAGNESIUM. 5. VITAMIN D3. 6. XARELTO 10 MG AT BEDTIME. 7. AMIODARONE 400 MG TWICE A DAY FOR 7 DAYS AND 200 MG P.O. DAILY FOR 7 DAYS. 8. ENTERIC-COATED ASPIRIN. 9. METOPROLOL TARTRATE. 10. NITROGLYCERIN 0.4 MG. 11. DOXYCYCLINE 100 MG P.O. B.I.D. 12. BRIMONIDINE. SUBJECTIVE: Ms. Ornelas is here due to some developing swelling over her pacemaker site, which was just implanted last week. Prior to that the wound was soft. She noticed no swelling which later spread and her site is tender. There are no fevers, chills, or cough. No localized heat. No stroke-like symptoms. No neurological deficits. REVIEW OF SYSTEMS: Rest of the 12-point review of systems is otherwise unremarkable. PAST MEDICAL HISTORY: As above. SOCIAL HISTORY: Patient is . Denies smoking, EtOH, or drug abuse. FAMILY HISTORY: Not contributory. OBJECTIVE: VITAL SIGNS: Blood pressure is 150/61, heart rate 64, respiratory rate 20, temperature 98.3 degrees Fahrenheit. GENERAL: Alert and oriented woman, in no apparent distress. NECK: Supple. Jugular veins are not distended. CHEST: Coarse without crackles. HEART: Sounds are regular to rate and rhythm. No murmur or gallop. ABDOMEN: Benign. Bowel sounds are positive. EXTREMITIES: Lower extremities without edema, clubbing, or cyanosis. Pulses are adequate. NEUROLOGIC: Patient is nonfocal. MUSCULOSKELETAL: Without joint pain or deformity. SKIN: Without rash. Left precordial pacemaker site is with some focal swelling. No significant increase in warmth detected. DATABASE: The EKG is reviewed, revealing atrioventricularly paced rhythm. LABORATORY DATA: Sodium 139, potassium 4.2, BUN is 44, creatinine 1.4, AST and ALT are 22 and 15. Troponin I 0.014. BNP is 149. White count is 11.5, hemoglobin 10.3, platelet count is 237. INR is 1.3. ASSESSMENT AND PLAN: Ms. Ornelas is an 80-year-old woman with history of tachybrady syndrome, recent dual-chamber pacemaker implantation history last week. She has been started on anticoagulant since Thursday. She has been taking her antibiotic. She did develop sudden swelling in the pacemaker site. There are no systemic fevers or chills. Mild white count elevation only. The most likely reason for the discomfort and swelling is localized hematoma, which is not unusual with the patient being on anticoagulant. At this point, I doubt systemic infection or even focal infection development. The skin is clearly without any signs of infection. For now I advised to hold Xarelto, place a pressure bandage on the pacemaker site and patient is already being admitted by the Hospitalist Team and at this point I think the reoperation would be higher risk than benefit. We will check on her again while in hospital. Thank you again for allowing me to participate in the care of this patient. Job ID: [id number] MTDD
[2020-09-04 05:09] LABS: #Basophils 0.1 thou/uL (0.0-0.2); #Eosinphils 0.3 thou/uL (0.0-0.7); #Lymphocytes 2.4 thou/uL (1.20-3.40); #Monocytes 1.2 thou/uL (0.11-0.59); #Neutrophils 5.6 thou/uL (1.40-6.50); %Basophils 0.7 % (0.0-1.0); %Eosinophils 3.6 % (0.0-10.0); %Monocytes 12.3 % (0.0-10.0); %Neutrophils 58.4 % (42.0-75.0); Hemoglobin 9.3 g/dL (12.0-16.0); Mean Corpuscular HGB CONC 32.2 g/dL (32.0-36.0); Mean Corpuscular Hemoglobin 27.3 pg (27.0-31.0); Mean Corpuscular Volume 84.8 fL (78.0-98.0); Mean Platelet Volume 8.8 fL (7.4-10.4); Platelet Count 228 thou/uL (130-400); RBC Distribution Width 13.6 % (11.5-14.5); Red Blood Cell (RBC) Count 3.39 mill/uL (4.20-5.40); White Blood Cell (WBC) Count 9.5 thou/uL (4.8-10.8)
[2020-09-04 05:38] LABS: ALT (SGPT) 14 U/L (8-55); AST (SGOT) 19 U/L (5-34); Albumin 3.2 g/dL (3.4-4.8); Alkaline Phosphatase 62 U/L (40-110); Anion Gap 13 mmol/L (10-20); BUN (Urea Nitrogen) 35 mg/dL (9.8-20.1); Bilirubin, Total 0.3 mg/dL (0.2-1.2); Calc. Creatinine Clearance 50 mL/min (70-130); Calcium 9.2 mg/dL (7.8-10.44); Carbon Dioxide 21 mmol/L (23-31); Chloride 109 mmol/L (98-107); Estimated GFR-MDRD 38; Globulin 2.7 g/dL (2.4-3.5); Glucose 126 mg/dL (83-110); Potassium 4.6 mmol/L (3.5-5.1); Protein, Total 5.9 g/dL (6.0-8.3); Sodium 138 mmol/L (136-145)
[2020-09-04 07:35] VITALS: TEMP 98.1
[2020-09-04] MEDS: Cefepime 1 GM in Sodium Chloride 0.9% 100 ML IVPB SCH (08:12)
[2020-09-04] MEDS: Famotidine 20 MG TAB PO SCH (08:12)
[2020-09-04] MEDS: Metoprolol Tartrate 25 MG TAB PO SCH (08:12)
[2020-09-04] MEDS: Amiodarone 200 MG TAB PO SCH (08:13)
[2020-09-04] MEDS: Brimonidine Tartrate 0.2% Ophth Soln 5 ml Bottle L EYE SCH (08:16)
[2020-09-04] MEDS ORDERED: Cholecalciferol 1,000 UNITS (25 MCG) TAB PO SCH (09:00)
[2020-09-04] MEDS ORDERED: Aspirin 81 mg Enteric Coated Tablet PO SCH (09:00)
[2020-09-04] MEDS ORDERED: Saccharomyces boulardii 250 MG CAP PO SCH (09:00)
[2020-09-04] MEDS ORDERED: Vancomycin 1 GM in Premix Bag 1 BAG IVPB SCH (10:00)
--- NOTE | 2020-09-04 10:20 | PDOC.HOSPP ---
- Subjective Encounter Date: 09/04/20 Encounter Time: 07:10 Subjective: Patient seen and examined. No new complaints. No overnight events - Objective Vital Signs & Weight: Vital Signs (12 hours) Temp Pulse Resp BP BP BP Pulse Ox 09/04/20 07:21 98.1 F 69 16 139/62 97 09/04/20 05:55 149/81 H 09/04/20 04:00 96.2 F L 67 20 189/76 H 98 Weight Weight 208 lb 6 oz I&O: 09/03/20 09/04/20 09/05/20 06:59 06:59 06:59 Intake Total 690 Output Total 500 Balance 190 Result Diagrams: 09/04/20 04:39 09/04/20 04:38 EKG Reviewed by me: Yes Hospitalist ROS - Review of Systems ENT: denies: ear pain, ear discharge, nose pain, nose discharge, nose congestion, mouth pain, mouth swelling, throat pain, throat swelling, other Respiratory: denies: cough, dry, shortness of breath, hemoptysis, SOB with excertion, pleuritic pain, sputum, wheezing, other Cardiovascular: denies: chest pain, palpitations, orthopnea, paroxysmal noc. dyspnea, edema, light headedness, other Gastrointestinal: denies: nausea, vomiting, abdominal pain, diarrhea, constipation, melena, hematochezia, other Genitourinary: denies: dysuria, frequency, incontinence, hematuria, retention, other Musculoskeletal: denies: neck pain, shoulder pain, arm pain, back pain, hand pain, leg pain, foot pain, other - Medication Medications: Active Medications Generic Name Dose Route Start Last Admin Trade Name Freq PRN Reason Stop Dose Admin Hydrocodone Bitart/Acetaminophen 1 tab 09/03/20 15:20 09/04/20 09:56 Hydrocodone/Acetaminophen 5/325 Mg Tablet PO 1 tab Q4H PRN Administration Moderate Pain (4-6) Amiodarone HCl 400 mg 09/03/20 21:00 09/04/20 08:13 Amiodarone 200 Mg Tab PO 09/05/20 23:59 400 mg BID VALENTIN Administration Aspirin 81 mg 09/04/20 09:00 09/04/20 08:12 Aspirin 81 Mg Enteric Coated Tablet PO 81 mg DAILY VALENTIN Administration Brimonidine Tartrate 1 drop 09/03/20 21:00 09/04/20 08:16 Brimonidine Tartrate 0.2% Ophth Soln 5 Ml Bottle L EYE 1 drop BID VALENTIN Administration Cholecalciferol 1,000 units 09/04/20 09:00 09/04/20 08:13 Cholecalciferol 1,000 Units (25 Mcg) Tab PO 1,000 units DAILY VALENTIN Administration Famotidine 20 mg 09/03/20 21:00 09/04/20 08:12 Famotidine 20 Mg Tab PO 20 mg BID VALENTIN Administration Cefepime HCl 1 gm/ Sodium 100 mls @ 200 mls/hr 09/03/20 21:00 09/04/20 08:12 Chloride IVPB 100 mls Q12HR VALENTIN Administration Vancomycin HCl 1 gm/ Device 200 mls @ 200 mls/hr 09/04/20 10:00 09/04/20 09:56 IVPB 200 mls 1000 VALENTIN Administration Isosorbide Mononitrate 30 mg 09/04/20 09:00 09/04/20 08:12 Isosorbide Mononitrate Er 30 Mg Tab PO 30 mg DAILY VALENTIN Administration Latanoprost 1 drop 09/03/20 21:00 09/03/20 21:41 Latanoprost 0.005% Ophth Soln 2.5 Ml Bottle L EYE 1 drop HS VALENTIN Administration Metoprolol Tartrate 25 mg 09/03/20 21:00 09/04/20 08:12 Metoprolol Tartrate 25 Mg Tab PO 25 mg BID VALENTIN Administration Saccharomyces Boulardii 250 mg 09/04/20 09:00 09/04/20 08:13 Saccharomyces Boulardii 250 Mg Cap PO 250 mg DAILY VALENTIN Administration - Exam General Appearance: NAD, awake alert Eye: PERRL, anicteric sclera ENT: normocephalic atraumatic, no oropharyngeal lesions Neck: supple, symmetric, no JVD, no thyromegaly Heart: no murmur, no gallops, no rubs, irregular Respiratory: CTAB, no wheezes, no rales, no ronchi Gastrointestinal: soft, non-tender, non-distended Extremities: no cyanosis, no clubbing Skin: normal turgor, no lesions Neurological: no focal deficits Musculoskeletal: normal tone, normal strength Psychiatric: normal affect, normal behavior Hosp A/P (1) Cellulitis Code(s): L03.90 - CELLULITIS, UNSPECIFIED Status: Acute Qualifiers: Site of cellulitis: other site Qualified Code(s): L03.818 - Cellulitis of other sites (2) Hypotension Status: Resolved (3) Lactic acidosis Code(s): E87.2 - ACIDOSIS Status: Resolved (4) Obesity (BMI 30-39.9) Code(s): E66.9 - OBESITY, UNSPECIFIED Status: Chronic (5) Tachy-nilsa syndrome Code(s): I49.5 - SICK SINUS SYNDROME Status: Chronic (6) Atrial fibrillation Code(s): I48.91 - UNSPECIFIED ATRIAL FIBRILLATION Status: Chronic Qualifiers: Atrial fibrillation type: unspecified chronic Qualified Code(s): I48.20 - Chronic atrial fibrillation, unspecified; I48.2 - Chronic atrial fibrillation (7) CAD (coronary artery disease) Code(s): I25.10 - ATHSCL HEART DISEASE OF [place] CORONARY ARTERY W/O ANG PCTRS Status: Chronic (8) CKD (chronic kidney disease), stage III Code(s): N18.30 - CHRONIC KIDNEY DISEASE, STAGE 3 UNSPECIFIED Status: Chronic (9) DM II (diabetes mellitus, type II), controlled Code(s): E11.9 - TYPE 2 DIABETES MELLITUS WITHOUT COMPLICATIONS Status: Chronic (10) Hypertension Code(s): I10 - ESSENTIAL (PRIMARY) HYPERTENSION Status: Chronic - Plan old records reviewed/req, plan discussed w/ family, continue antibiotics Plan for discharge later on today after consultants visit Agree with holding Xarelto for few days given hematoma Patient will resume her doxycycline upon discharge Plan of care discussed with the patient and her bedside. Risk and benefit of holding Xarelto addressed with the patient and she agreed to hold.
[2020-09-04 16:07] VITALS: BP 153/67
--- NOTE | 2020-09-04 16:29 | PDOC.EP ---
- Subjective Date: 09/04/20 Time: 08:00 Interval History: she has no new complaints overnight and continues to report tenderness at her pacemaker site which is unchanged since yesterday. No new events overnight - Review of Systems Constitutional: denies: chills, fever, malaise, sweats, weakness Respiratory: denies: cough, pleuritic pain, shortness of breath, wheezing Cardiology: denies: chest pain, edema, heart racing, light headedness, palpitations, passing out Gastrointestinal: denies: abdominal pain, constipation, nausea, vomitting Musculoskeletal: reports: shoulder pain. denies: unstable gait, falls, leg pain, foot pain - Objective Allergies/Adverse Reactions: Allergies Allergy/AdvReac Type Severity Reaction Status Date / Time apixaban [From Eliquis] Allergy Verified 09/03/20 17:57 fluticasone [From Flonase] Allergy Verified 08/25/20 14:50 iodine Allergy Verified 09/03/20 17:57 latex Allergy Verified 09/03/20 17:57 lisinopril Allergy COUGH Verified 09/03/20 17:57 Penicillins Allergy Verified 09/03/20 17:57 Sulfa (Sulfonamide Allergy "makes me Verified 09/03/20 17:57 Antibiotics) feel terrible" Vital Signs & Weight: Vital Signs Temp Pulse Pulse Pulse Resp BP BP 09/04/20 11:30 64 09/04/20 10:52 61 66 153/67 H 09/04/20 09:32 70 132/60 09/04/20 07:21 98.1 F 69 16 09/04/20 05:55 149/81 H BP BP Pulse Ox Pulse Ox Pulse Ox 09/04/20 11:30 145/63 H 09/04/20 10:52 143/66 H 97 09/04/20 09:32 145/65 H 97 09/04/20 07:21 139/62 97 09/04/20 05:55 Weight 208 lb 6 oz I/O: I/O 09/03/20 09/04/20 09/05/20 06:59 06:59 06:59 Intake Total 690 Output Total 500 Balance 190 - Quality Measures Condition: Atrial Fibrillation/Flutter (hx or current) CV meds: Xarelto: Yes (on hold) - Physical Exam General: alert & oriented x3, appears well, no apparent distress, speech clear, affect appropriate HEENT: mucus membranes moist, normocephaly Neck: supple neck, midline trachea, no JVD/HJR, no masses, no bruit, no lymphadenopathy, no thromegaly Cardiology: regular rate and rhythm, no murmur, regular rate, regular rhythm, PMI nondisplaced Lungs: clear to auscultation Neurology: cranial nerve 2-12 intact, grossly intact, motor function intact, sensory function intact, negative rhomberg, coordination normal, no lateralizing findings Abdomen: unremarkable, active bowel sounds, soft, non-tender, no masses, no pulsations/bruits, no hepatosplenomegaly, HJR negative Skin: bruising, left sided device, hematoma, swelling. 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 Her problems are; 1. Acute pacemaker site swelling, likely hematoma. 2. 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 3. Atrial arrhythmias. Paroxysmal atrial fibrillation as well as alternative episodes of atrial flutter. a. Prior history of regular narrow complex SVT. b. Bradycardia with Multaq. Eventually switched to amiodarone due to stewart issues, currently in sinus rhythm. c. On chronic anticoagulation with Xarelto. 4. Diastolic heart failure with lower extremity edema. a. 2D echo from 08/29/2020 reveals LVEF of 55% to 60%, moderate left atrial enlargement, moderate tricuspid regurgitation. 5. Renal insufficiency. Creatinine 1.41. Will replace pressure dressing which should be left in place for 3 days then may be removed at home. I would like her to continue doxycycline 100 mg p.o. b.i.d. until she is evaluated in my clinic next week. She is not to resume Xarelto until her wound check next week. Given her recent creatinine I plan to start Xarelto 15 mg daily.
--- NOTE | 2020-09-05 13:43 | DIS ---
DATE OF ADMISSION: 09/03/2020 DATE OF DISCHARGE: 09/04/2020 DISCHARGE DISPOSITION: Home. PRIMARY DISCHARGE DIAGNOSES: 1. Pacemaker site hematoma. 2. Pacemaker site mild cellulitis. SECONDARY DISCHARGE DIAGNOSES: 1. History of tachybrady syndrome, status post pacemaker. 2. Diabetes, type 2. 3. Chronic kidney disease, stage 3. 4. Coronary artery disease with CABG. 5. Obesity with BMI 35. 6. Hypertension. PRIMARY PROCEDURES/OPERATIONS: None. RADIOLOGICAL INVESTIGATION: Chest x-ray unremarkable. SIGNIFICANT LABORATORY DATA: WBC 9.5, hemoglobin 9.3, and platelets 228. Sodium 138, potassium 4.6, BUN 35, creatinine 1.33, and calcium 9.2. LFTs normal. Urinalysis, leukocyte esterase. DISCHARGE MEDICATIONS: 1. Brimonidine ophthalmic drops b.i.d. 2. BuSpar 5 mg b.i.d. p.r.n. 3. Imdur 30 mg daily. 4. Xalatan eye drops at bedtime. 5. Magnesium 250 mg daily. 6. Vitamin D3 at 1000 units p.o. daily. 7. Nitroglycerin 0.4 mg sublingual p.r.n. 8. Amiodarone as directed. 9. Aspirin 81 mg daily. 10. Lopressor 25 mg p.o. b.i.d. 11. Doxycycline 100 mg p.o. b.i.d. 12. Xarelto 20 mg p.o. daily. The patient is advised to hold aspirin and Xarelto as per recommendation from pediatric neurologist. CONTRAINDICATION: None. CODE STATUS: Full code. INPATIENT CONSULTANTS: Dr. Portillo and Dr. Clark. TEST RESULTS PENDING ON DISCHARGE: None. ALLERGIES: ELIQUIS, FLONASE, LISINOPRIL, AND PENICILLIN. DISCHARGE PLAN: Post hospital, the patient will follow up with primary care physician in one week. The patient will follow up with Dr. Sukhjinder Portillo in one week. HOSPITAL COURSE: An 80-year-old female who had recent pacemaker procedure for tachybrady syndrome, and subsequently, the patient was having pain in that location. She was found with a hematoma. She had also mild cellulitis. The patient went to [facility] Emergency Room where the patient had slight hypotension, lactic acidosis, and leukocytosis. The patient was given cefepime and vancomycin, and subsequently, the patient was transferred to our hospital for observation. We continued all her home medications while in the hospital. Upon discharge, we continued doxycycline. Inspector Penetrant evaluated this patient, and they are thinking that this is related with hematoma. We have suggested the patient to hold aspirin and Xarelto until cleared by the pediatric neurologist. The patient will continue all her previous medications. The patient will follow up with PCP and pediatric neurologist. The patient is seen and examined at bedside today. Please see my progress note from today for further detail. Job ID: [id number]
[2020-09-06] MEDS ORDERED: Amiodarone 200 MG TAB PO SCH (09:00)
[2020-09-13] MEDS ORDERED: Amiodarone 200 MG TAB PO SCH (09:00)
== END 2020-09-04 13:25 | disposition home or self-care (01) ==
LOC: ERS 13:41 → 2SW 14:46
PROVIDERS: ADMIT Internal Medicine; ATTEND Internal Medicine
DX: M96.841 Postprocedural hematoma of a musculoskeletal structure following other procedure (principal); L03.313 Cellulitis of chest wall; I49.5 Sick sinus syndrome; I13.0 Hypertensive heart and chronic kidney disease with heart failure and stage 1 through stage 4 chronic kidney disease, or unspecified chronic kidney disease; E11.22 Type 2 diabetes mellitus with diabetic chronic kidney disease; N18.30 Chronic kidney disease, stage 3 unspecified; I50.30 Unspecified diastolic (congestive) heart failure; I25.10 Atherosclerotic heart disease of native coronary artery without angina pectoris; E78.5 Hyperlipidemia, unspecified; E11.42 Type 2 diabetes mellitus with diabetic polyneuropathy; E11.51 Type 2 diabetes mellitus with diabetic peripheral angiopathy without gangrene; E11.10 Type 2 diabetes mellitus with ketoacidosis without coma; D72.829 Elevated white blood cell count, unspecified; F41.9 Anxiety disorder, unspecified; F32.9 Major depressive disorder, single episode, unspecified; I48.0 Paroxysmal atrial fibrillation; I95.9 Hypotension, unspecified; E66.9 Obesity, unspecified; Z68.35 Body mass index [BMI] 35.0-35.9, adult; Z79.01 Long term (current) use of anticoagulants; Z79.82 Long term (current) use of aspirin; Z79.899 Other long term (current) drug therapy; Z95.1 Presence of aortocoronary bypass graft; Z88.0 Allergy status to penicillin; Z88.2 Allergy status to sulfonamides; Z88.8 Allergy status to other drugs, medicaments and biological substances; Z91.040 Latex allergy status; Z91.041 Radiographic dye allergy status; Z95.0 Presence of cardiac pacemaker
CPT/HCPCS: 36415; 80053; 83605; 85025; 93005; 96365; 96375; G0378; J0692; J3370; J3490

== ENCOUNTER 2021-06-26 15:42 | Inpatient (IN) | payer MEDICARE ==
[2021-06-26] MEDS ORDERED: Ondansetron PF 4 MG/2 ML Vial ONE ×2 (16:13→19:43)
[2021-06-26 16:17] LABS: #Basophils 0.1 thou/uL (0.0-0.2); #Eosinphils 0.1 thou/uL (0.0-0.7); #Lymphocytes 1.7 thou/uL (1.20-3.40); #Monocytes 0.9 thou/uL (0.11-0.59); #Neutrophils 7.2 thou/uL (1.40-6.50); %Basophils 1.1 % (0.0-1.0); %Eosinophils 0.8 % (0.0-10.0); %Lymphocytes 17.2 % (21.0-51.0); %Monocytes 9.3 % (0.0-10.0); %Neutrophils 71.7 % (42.0-75.0); Hemoglobin 9.1 g/dL (12.0-16.0); Mean Corpuscular HGB CONC 32.7 g/dL (32.0-36.0); Mean Corpuscular Hemoglobin 27.1 pg (27.0-31.0); Mean Corpuscular Volume 83.1 fL (78.0-98.0); Platelet Count 223 thou/uL (130-400); Red Blood Cell (RBC) Count 3.35 mill/uL (4.20-5.40)
[2021-06-26 16:41] LABS: ALT (SGPT) 27 U/L (8-55); AST (SGOT) 56 U/L (5-34); Albumin 3.4 g/dL (3.4-4.8); Alkaline Phosphatase 91 U/L (40-110); Anion Gap 16 mmol/L (10-20); BUN (Urea Nitrogen) 33 mg/dL (9.8-20.1); Bilirubin, Total 0.4 mg/dL (0.2-1.2); CK (CPK) 13 U/L (29-168); Calc. Creatinine Clearance 0 mL/min (70-130); Calcium 9.3 mg/dL (7.8-10.44); Carbon Dioxide 19 mmol/L (23-31); Chloride 106 mmol/L (98-107); Globulin 3.7 g/dL (2.4-3.5); Glucose 201 mg/dL (83-110); Magnesium 1.6 mg/dL (1.6-2.6); Potassium 6.2 mmol/L (3.5-5.1); Protein, Total 7.1 g/dL (5.8-8.1); Sodium 135 mmol/L (136-145)
[2021-06-26 16:43] LABS: INR-International Normal Ratio 1.4; Prothrombin Time 17.6 sec (12.0-14.7)
[2021-06-26 16:44] LABS: PTT 34.4 sec (22.9-36.1)
[2021-06-26] MEDS ORDERED: Morphine 4 MG/ML VIAL ONE (18:09)
[2021-06-26] MEDS ORDERED: HumaLOG 300 UNITS/3 ML VIAL ONE (19:40)
[2021-06-26] MEDS ORDERED: Sodium Bicarb 50 MEQ/50 ML Abboject 8.4% SYRINGE ONE (19:40)
[2021-06-26] MEDS ORDERED: Dextrose 50% Abboject 50 ML SYRINGE ONE (19:40)
[2021-06-26] MEDS ORDERED: Insulin Regular 300 UNITS/3 ML VIAL ONE (19:41)
[2021-06-26] MEDS ORDERED: Calcium Gluc 4.6 MEQ/10 ML (100 MG/ML) ONE (19:43)
[2021-06-26] MEDS ORDERED: Morphine 2 MG/ML VIAL SLOW IVP PRN (21:13)
[2021-06-26] MEDS ORDERED: Ondansetron ODT 4 MG TAB SL PRN (21:15)
[2021-06-26] MEDS ORDERED: Ondansetron PF 4 MG/2 ML Vial IVP PRN (21:15)
[2021-06-26] MEDS: Sodium Chloride 0.9% 1,000 ML IV SCH (23:00)
[2021-06-27 03:37] VITALS: BMI 34.2
[2021-06-27 04:37] LABS: Mean Corpuscular HGB CONC 32.9 g/dL (32.0-36.0); Mean Corpuscular Hemoglobin 27.4 pg (27.0-31.0); Mean Corpuscular Volume 83.1 fL (78.0-98.0); Mean Platelet Volume 8.8 fL (7.4-10.4); Platelet Count 196 thou/uL (130-400); Red Blood Cell (RBC) Count 3.28 mill/uL (4.20-5.40); White Blood Cell (WBC) Count 8.6 thou/uL (4.8-10.8)
[2021-06-27 04:53] LABS: Anion Gap 15 mmol/L (10-20); BUN (Urea Nitrogen) 41 mg/dL (9.8-20.1); Calc. Creatinine Clearance 28 mL/min (70-130); Calcium 9.3 mg/dL (7.8-10.44); Carbon Dioxide 19 mmol/L (23-31); Chloride 107 mmol/L (98-107); Glucose 118 mg/dL (83-110); Potassium 4.8 mmol/L (3.5-5.1); Sodium 136 mmol/L (136-145)
[2021-06-27] MEDS ORDERED: Dextrose 50% Abboject 50 ML SYRINGE SLOW IVP PRN (04:57)
[2021-06-27] MEDS ORDERED: HumaLOG 300 UNITS/3 ML VIAL SC PRN ×2 (04:57)
[2021-06-27] MEDS ORDERED: Dextrose 5% in Water 1,000 ML IV PRN (04:57)
[2021-06-27 05:01] LABS: Band 13 % (5-11); Eosinophils 2 % (0-10); Lymphocytes 32 % (21-51); MDiff Complete? YES; Monocytes 8 % (0-10); Neutrophil 45 % (42-75)
[2021-06-27] MEDS: Sodium Chloride 0.9% 1,000 ML IV SCH (07:16)
[2021-06-27] MEDS ORDERED: busPIRone HCl 5 MG TAB PO PRN (07:49)
[2021-06-27] MEDS ORDERED: traMADol HCl 50 MG TAB PO PRN (07:49)
[2021-06-27] MEDS: Metoprolol Tartrate 25 MG TAB PO SCH ×2 (08:36→21:09)
[2021-06-27] MEDS: Amiodarone 200 MG TAB PO SCH (08:36)
[2021-06-27] MEDS: Brimonidine Tartrate 0.2% Ophth Soln 5 ml Bottle L EYE SCH ×2 (09:42→21:09)
[2021-06-27] MEDS: Losartan 25 MG TAB PO SCH (09:44)
[2021-06-27 12:41] LABS: SARS-CoV-2 PCR by NAA Not Detected (NotDetected)
[2021-06-27] MEDS ORDERED: Polyethylene Glycol 3350 17 GM Packet PO PRN (16:29)
[2021-06-27] MEDS: Latanoprost 0.005% Ophth Soln 2.5 ml Bottle EA EYE SCH (21:10)
[2021-06-28 04:32] LABS: Anion Gap 12 mmol/L (10-20); BUN (Urea Nitrogen) 41 mg/dL (9.8-20.1); Calc. Creatinine Clearance 28 mL/min (70-130); Carbon Dioxide 20 mmol/L (23-31); Chloride 108 mmol/L (98-107); Glucose 161 mg/dL (83-110); Potassium 4.3 mmol/L (3.5-5.1); Sodium 136 mmol/L (136-145)
[2021-06-28 05:21] LABS: Band 2 % (5-11); Eosinophils 1 % (0-10); Hemoglobin 7.8 g/dL (12.0-16.0); Lymphocytes 16 % (21-51); MDiff Complete? YES; Mean Corpuscular HGB CONC 33.1 g/dL (32.0-36.0); Mean Corpuscular Hemoglobin 27.3 pg (27.0-31.0); Mean Corpuscular Volume 82.6 fL (78.0-98.0); Mean Platelet Volume 8.8 fL (7.4-10.4); Monocytes 11 % (0-10); Neutrophil 63 % (42-75); Platelet Count 177 thou/uL (130-400); Platelet Morphology Comment Appears Adequate; RBC Distribution Width 14.9 % (11.5-14.5); RBC Morphology Normal; Reactive Lymphocytes 7 % (0-10); Red Blood Cell (RBC) Count 2.86 mill/uL (4.20-5.40); White Blood Cell (WBC) Count 6.6 thou/uL (4.8-10.8)
[2021-06-28] MEDS: Brimonidine Tartrate 0.2% Ophth Soln 5 ml Bottle L EYE SCH ×2 (07:54→20:12)
[2021-06-28] MEDS: Amiodarone 200 MG TAB PO SCH (07:54)
[2021-06-28] MEDS: Metoprolol Tartrate 25 MG TAB PO SCH ×2 (07:54→20:13)
[2021-06-28] MEDS: Losartan 25 MG TAB PO SCH (07:56)
[2021-06-28 14:08] LABS: Hemoglobin 8.6 g/dL (12.0-16.0)
[2021-06-28] MEDS ORDERED: Ondansetron PF 4 MG/2 ML Vial IVP PRN (15:44)
[2021-06-28 19:23] LABS: Hemoglobin 8.5 g/dL (12.0-16.0)
[2021-06-28] MEDS: Latanoprost 0.005% Ophth Soln 2.5 ml Bottle EA EYE SCH (20:12)
[2021-06-28] MEDS ORDERED: Gabapentin 100 MG CAP PO SCH (21:00)
[2021-06-29 01:54] LABS: Hemoglobin 8.2 g/dL (12.0-16.0)
[2021-06-29 07:06] LABS: Hemoglobin 8.4 g/dL (12.0-16.0)
[2021-06-29] MEDS: Metoprolol Tartrate 25 MG TAB PO SCH ×2 (08:26→20:45)
[2021-06-29] MEDS: Amiodarone 200 MG TAB PO SCH (08:27)
[2021-06-29] MEDS: Brimonidine Tartrate 0.2% Ophth Soln 5 ml Bottle L EYE SCH ×2 (08:27→20:45)
[2021-06-29] MEDS: Diphenoxylate HCl/Atropine Tablet PO PRN (17:44)
[2021-06-29] MEDS: Latanoprost 0.005% Ophth Soln 2.5 ml Bottle EA EYE SCH (20:46)
[2021-06-30] MEDS: Levothyroxine Sodium 25 MCG TAB PO SCH (06:07)
[2021-06-30] MEDS: Amiodarone 200 MG TAB PO SCH (08:41)
[2021-06-30] MEDS: Metoprolol Tartrate 25 MG TAB PO SCH ×2 (08:41→20:53)
[2021-06-30] MEDS: Brimonidine Tartrate 0.2% Ophth Soln 5 ml Bottle L EYE SCH ×2 (08:41→20:56)
[2021-06-30] MEDS: Gabapentin 100 MG CAP PO SCH (08:41)
[2021-06-30 08:44] LABS: INR-International Normal Ratio 1.1; Prothrombin Time 14.6 sec (12.0-14.7)
[2021-06-30 08:45] LABS: PTT 38.4 sec (22.9-36.1)
[2021-06-30 08:52] LABS: ALT (SGPT) 15 U/L (8-55); AST (SGOT) 30 U/L (5-34); Alkaline Phosphatase 69 U/L (40-110); Anion Gap 13 mmol/L (10-20); BUN (Urea Nitrogen) 28 mg/dL (9.8-20.1); Bilirubin, Total 0.8 mg/dL (0.2-1.2); Calc. Creatinine Clearance 43 mL/min (70-130); Calcium 8.9 mg/dL (7.8-10.44); Carbon Dioxide 20 mmol/L (23-31); Chloride 107 mmol/L (98-107); Glucose 142 mg/dL (83-110); Sodium 136 mmol/L (136-145)
[2021-06-30 08:56] LABS: Hemoglobin 8.4 g/dL (12.0-16.0); Mean Corpuscular HGB CONC 33.1 g/dL (32.0-36.0); Mean Corpuscular Hemoglobin 27.7 pg (27.0-31.0); Mean Corpuscular Volume 83.7 fL (78.0-98.0); Mean Platelet Volume 8.7 fL (7.4-10.4); Platelet Count 183 thou/uL (130-400); RBC Distribution Width 14.6 % (11.5-14.5); Red Blood Cell (RBC) Count 3.02 mill/uL (4.20-5.40); White Blood Cell (WBC) Count 6.5 thou/uL (4.8-10.8)
[2021-06-30 10:05] LABS: Band 29 % (5-11); Eosinophils 1 % (0-10); Lymphocytes 22 % (21-51); MDiff Complete? YES; Metamyelocyte 4 % (0-0); Monocytes 2 % (0-10); Myelocyte 2 % (0-0); Neutrophil 40 % (42-75)
[2021-06-30] MEDS: Diphenoxylate HCl/Atropine Tablet PO PRN (17:41)
[2021-06-30] MEDS: Latanoprost 0.005% Ophth Soln 2.5 ml Bottle EA EYE SCH (20:56)
[2021-07-01 05:19] LABS: Anion Gap 11 mmol/L (10-20); BUN (Urea Nitrogen) 22 mg/dL (9.8-20.1); Calc. Creatinine Clearance 45 mL/min (70-130); Calcium 8.8 mg/dL (7.8-10.44); Carbon Dioxide 21 mmol/L (23-31); Chloride 103 mmol/L (98-107); Glucose 140 mg/dL (83-110); Sodium 131 mmol/L (136-145)
[2021-07-01 05:36] LABS: Band 2 % (5-11); Hemoglobin 8.3 g/dL (12.0-16.0); Hypochromia SLIGHT = 6-15 cells (100X) (0-5/hpf); Lymphocytes 26 % (21-51); MDiff Complete? YES; Mean Corpuscular HGB CONC 30.5 g/dL (32.0-36.0); Mean Corpuscular Hemoglobin 25.4 pg (27.0-31.0); Mean Corpuscular Volume 83.5 fL (78.0-98.0); Mean Platelet Volume 8.4 fL (7.4-10.4); Monocytes 12 % (0-10); Neutrophil 59 % (42-75); Platelet Count 203 thou/uL (130-400); Platelet Morphology Comment Appears Adequate; RBC Distribution Width 14.5 % (11.5-14.5); Reactive Lymphocytes 1 % (0-10); Red Blood Cell (RBC) Count 3.24 mill/uL (4.20-5.40); White Blood Cell (WBC) Count 6.2 thou/uL (4.8-10.8)
[2021-07-01] MEDS: Levothyroxine Sodium 25 MCG TAB PO SCH (05:41)
[2021-07-01 08:34] VITALS: TEMP 98.3
[2021-07-01] MEDS: Brimonidine Tartrate 0.2% Ophth Soln 5 ml Bottle L EYE SCH (08:35)
[2021-07-01] MEDS: Amiodarone 200 MG TAB PO SCH (08:35)
[2021-07-01] MEDS: Metoprolol Tartrate 25 MG TAB PO SCH (08:35)
[2021-07-01] MEDS: Gabapentin 100 MG CAP PO SCH (08:36)
[2021-07-01 13:31] VITALS: BP 134/65
[2021-07-01] MEDS ORDERED: Ciprofloxacin 500 MG TAB PO SCH (20:00)
== END 2021-07-01 13:10 | disposition short-term general hospital (02) | DRG 441 ==
LOC: ERS 15:42 → 2NO 18:41 → ONC 06-30 15:22
PROVIDERS: ADMIT Internal Medicine; ATTEND Internal Medicine
DX: R16.0 Hepatomegaly, not elsewhere classified (principal); K66.1 Hemoperitoneum; C79.71 Secondary malignant neoplasm of right adrenal gland; D62 Acute posthemorrhagic anemia; N39.0 Urinary tract infection, site not specified; Z16.11 Resistance to penicillins; Z20.822 Contact with and (suspected) exposure to COVID-19; I48.0 Paroxysmal atrial fibrillation; I25.10 Atherosclerotic heart disease of native coronary artery without angina pectoris; D63.1 Anemia in chronic kidney disease; E11.22 Type 2 diabetes mellitus with diabetic chronic kidney disease; N18.30 Chronic kidney disease, stage 3 unspecified; I12.9 Hypertensive chronic kidney disease with stage 1 through stage 4 chronic kidney disease, or unspecified chronic kidney disease; E66.9 Obesity, unspecified; E87.5 Hyperkalemia; H40.9 Unspecified glaucoma; E78.5 Hyperlipidemia, unspecified; G89.29 Other chronic pain; M54.9 Dorsalgia, unspecified; I49.5 Sick sinus syndrome; E11.40 Type 2 diabetes mellitus with diabetic neuropathy, unspecified; E11.51 Type 2 diabetes mellitus with diabetic peripheral angiopathy without gangrene; B96.20 Unspecified Escherichia coli [E. coli] as the cause of diseases classified elsewhere; Z95.1 Presence of aortocoronary bypass graft; Z68.34 Body mass index [BMI] 34.0-34.9, adult; Z85.820 Personal history of malignant melanoma of skin; Z98.42 Cataract extraction status, left eye; Z98.41 Cataract extraction status, right eye; Z95.0 Presence of cardiac pacemaker; Z90.49 Acquired absence of other specified parts of digestive tract; Z90.710 Acquired absence of both cervix and uterus; Z88.0 Allergy status to penicillin; Z88.2 Allergy status to sulfonamides; Z88.8 Allergy status to other drugs, medicaments and biological substances; Z91.041 Radiographic dye allergy status; Z91.040 Latex allergy status; Z79.899 Other long term (current) drug therapy; Z79.01 Long term (current) use of anticoagulants; Z79.02 Long term (current) use of antithrombotics/antiplatelets
CPT/HCPCS: 36415; 36416; 71250; 74177; 80048; 80053; 82105; 82378; 82550; 83690; 83735; 85014; 85018; 85025; 85610; 85730; 87077; 87086; 87186; 93005; 96374; 96375; 96376; J1815; J2001; J2270; J2405; U0003; U0005

== ENCOUNTER 2021-08-12 14:47 | Inpatient (IN) | payer MEDICARE ==
[2021-08-12 15:31] LABS: Hemoglobin 10.2 g/dL (12.0-16.0); Mean Corpuscular HGB CONC 33.2 g/dL (32.0-36.0); Mean Corpuscular Hemoglobin 27.8 pg (27.0-31.0); Mean Corpuscular Volume 83.5 fL (78.0-98.0); Mean Platelet Volume 7.6 fL (7.4-10.4); Platelet Count 351 thou/uL (130-400); RBC Distribution Width 14.3 % (11.5-14.5); Red Blood Cell (RBC) Count 3.67 mill/uL (4.20-5.40); White Blood Cell (WBC) Count 6.8 thou/uL (4.8-10.8)
[2021-08-12 15:50] LABS: Band 1 % (5-11); Eosinophils 1 % (0-10); Lymphocytes 20 % (21-51); MDiff Complete? YES; Monocytes 4 % (0-10); Neutrophil 74 % (42-75); Platelet Morphology Comment Appears Adequate; Polychromasia SLIGHT = 2-3 cells (100X) (0-2/hpf)
[2021-08-12 15:53] LABS: ALT (SGPT) 44 U/L (8-55); AST (SGOT) 64 U/L (5-34); Albumin 3.1 g/dL (3.4-4.8); Alkaline Phosphatase 107 U/L (40-110); Anion Gap 20 mmol/L (10-20); BUN (Urea Nitrogen) 19 mg/dL (9.8-20.1); Bilirubin, Total 0.5 mg/dL (0.2-1.2); Calc. Creatinine Clearance 0 mL/min (70-130); Calcium 8.8 mg/dL (7.8-10.44); Carbon Dioxide 21 mmol/L (23-31); Chloride 88 mmol/L (98-107); Globulin 3.2 g/dL (2.4-3.5); Glucose 147 mg/dL (83-110); Lipase 31 U/L (8-78); Potassium 5.4 mmol/L (3.5-5.1); Protein, Total 6.3 g/dL (5.8-8.1); Sodium 124 mmol/L (136-145)
[2021-08-12 17:34] LABS: Bacteria/HPF 1+ HPF (None Seen); Bilirubin 2+ (Negative); Blood, Urine Negative (Negative); Clarity Clear (Clear); Glucose, Urine (Dipstick) Normal (Negative); Ketone, Urine Negative (Negative); Leukocyte Negative Leu/uL (Negative); Nitrite Negative (Negative); Protein, Urine (Dipstick) 30 mg/dL (Neg-Trace); RBC/HPF 0-3 HPF (0-3); Specific Gravity, Urine 1.009 (1.002-1.036); Squamous Epithelial 0-3 HPF (0-3); WBC/HPF 0-3 HPF (0-3)
[2021-08-12] MEDS ORDERED: Ondansetron PF 4 MG/2 ML Vial IVP PRN (19:16)
[2021-08-12] MEDS ORDERED: Acetaminophen 325 MG TAB PO PRN (19:16)
[2021-08-12] MEDS ORDERED: Dextrose 5% in Water 1,000 ML IV PRN (19:24)
[2021-08-12] MEDS ORDERED: Dextrose 50% Abboject 50 ML SYRINGE SLOW IVP PRN (19:24)
[2021-08-12] MEDS: Sodium Chloride 0.9% 1,000 ML IV SCH (22:19)
[2021-08-12] MEDS ORDERED: LACTINEX 1 TAB PO SCH (23:29)
[2021-08-13] MEDS: Simethicone Chewable 80 MG TAB PO PRN ×2 (02:30→17:54)
[2021-08-13] MEDS ORDERED: busPIRone HCl 5 MG TAB PO PRN (04:42)
[2021-08-13 05:02] LABS: #Eosinphils 0.1 thou/uL (0.0-0.7); #Lymphocytes 1.2 thou/uL (1.20-3.40); #Monocytes 1.1 thou/uL (0.11-0.59); #Neutrophils 4.9 thou/uL (1.40-6.50); %Basophils 0.6 % (0.0-1.0); %Eosinophils 1.8 % (0.0-10.0); %Lymphocytes 16.2 % (21.0-51.0); %Monocytes 14.4 % (0.0-10.0); %Neutrophils 66.9 % (42.0-75.0); Hemoglobin 9.8 g/dL (12.0-16.0); Mean Corpuscular HGB CONC 32.1 g/dL (32.0-36.0); Mean Corpuscular Hemoglobin 26.9 pg (27.0-31.0); Mean Platelet Volume 7.5 fL (7.4-10.4); Platelet Count 284 thou/uL (130-400); RBC Distribution Width 14.4 % (11.5-14.5); Red Blood Cell (RBC) Count 3.65 mill/uL (4.20-5.40); White Blood Cell (WBC) Count 7.4 thou/uL (4.8-10.8)
[2021-08-13 05:23] LABS: Anion Gap 15 mmol/L (10-20); BUN (Urea Nitrogen) 21 mg/dL (9.8-20.1); Calc. Creatinine Clearance 35 mL/min (70-130); Calcium 8.8 mg/dL (7.8-10.44); Carbon Dioxide 24 mmol/L (23-31); Chloride 90 mmol/L (98-107); Glucose 106 mg/dL (83-110); Potassium 4.6 mmol/L (3.5-5.1); Sodium 124 mmol/L (136-145)
[2021-08-13] MEDS: Clopidogrel Bisulfate 75 MG TAB PO SCH (09:34)
[2021-08-13] MEDS: Metoprolol Tartrate 25 MG TAB PO SCH ×2 (09:35→20:27)
[2021-08-13] MEDS: Levothyroxine Sodium 25 MCG TAB PO SCH (09:36)
[2021-08-13] MEDS: Gabapentin 100 MG CAP PO SCH ×2 (09:37→20:26)
[2021-08-13] MEDS: Amiodarone 200 MG TAB PO SCH (09:38)
[2021-08-13] MEDS: Sodium Chloride 0.9% 1,000 ML IV SCH (09:38)
[2021-08-13 15:39] VITALS: BMI 33.0
[2021-08-13] MEDS: Rivaroxaban 15 MG TAB PO SCH (16:30)
[2021-08-14] MEDS: Sodium Chloride 0.9% 1,000 ML IV SCH ×2 (01:12→14:04)
[2021-08-14 09:35] LABS: Hemoglobin 8.8 g/dL (12.0-16.0); Mean Corpuscular HGB CONC 32.9 g/dL (32.0-36.0); Mean Corpuscular Hemoglobin 27.7 pg (27.0-31.0); Mean Corpuscular Volume 84.2 fL (78.0-98.0); Mean Platelet Volume 7.3 fL (7.4-10.4); Platelet Count 298 thou/uL (130-400); RBC Distribution Width 14.4 % (11.5-14.5); Red Blood Cell (RBC) Count 3.19 mill/uL (4.20-5.40); White Blood Cell (WBC) Count 4.8 thou/uL (4.8-10.8)
[2021-08-14] MEDS: Gabapentin 100 MG CAP PO SCH ×2 (09:37→20:39)
[2021-08-14] MEDS: Levothyroxine Sodium 25 MCG TAB PO SCH (09:37)
[2021-08-14] MEDS: Clopidogrel Bisulfate 75 MG TAB PO SCH (09:37)
[2021-08-14] MEDS: Metoprolol Tartrate 25 MG TAB PO SCH ×2 (09:37→20:40)
[2021-08-14] MEDS: Amiodarone 200 MG TAB PO SCH (09:37)
[2021-08-14 09:58] LABS: Anion Gap 12 mmol/L (10-20); BUN (Urea Nitrogen) 25 mg/dL (9.8-20.1); Calc. Creatinine Clearance 38 mL/min (70-130); Calcium 8.7 mg/dL (7.8-10.44); Carbon Dioxide 25 mmol/L (23-31); Chloride 99 mmol/L (98-107); Glucose 128 mg/dL (83-110); Sodium 131 mmol/L (136-145)
[2021-08-14 10:50] LABS: Calcium 8.4 mg/dL (7.8-10.44); Chloride 98 mmol/L (98-107); Glucose 154 mg/dL (83-110); Potassium 4.7 mmol/L (3.5-5.1); Sodium 128 mmol/L (136-145)
[2021-08-14 10:52] LABS: Anion Gap 10 mmol/L (10-20); Carbon Dioxide 25 mmol/L (23-31)
[2021-08-14 10:54] LABS: Calc. Creatinine Clearance 39 mL/min (70-130)
[2021-08-14 10:55] LABS: BUN (Urea Nitrogen) 26 mg/dL (9.8-20.1)
[2021-08-14 11:19] LABS: Band 5 % (5-11); Lymphocytes 25 % (21-51); MDiff Complete? YES; Monocytes 17 % (0-10); Neutrophil 53 % (42-75); Platelet Morphology Comment Appears Adequate; Polychromasia SLIGHT = 2-3 cells (100X) (0-2/hpf)
[2021-08-14] MEDS: Rivaroxaban 15 MG TAB PO SCH (16:39)
[2021-08-15] MEDS: Sodium Chloride 0.9% 1,000 ML IV SCH (01:08)
[2021-08-15] MEDS: Metoprolol Tartrate 25 MG TAB PO SCH ×2 (07:06→20:33)
[2021-08-15] MEDS: Amiodarone 200 MG TAB PO SCH (07:06)
[2021-08-15] MEDS: Clopidogrel Bisulfate 75 MG TAB PO SCH (07:06)
[2021-08-15] MEDS: Gabapentin 100 MG CAP PO SCH ×2 (07:06→20:32)
[2021-08-15] MEDS: Levothyroxine Sodium 25 MCG TAB PO SCH (07:07)
[2021-08-15 07:37] LABS: Hemoglobin 8.8 g/dL (12.0-16.0); Mean Corpuscular HGB CONC 33.1 g/dL (32.0-36.0); Mean Corpuscular Hemoglobin 27.8 pg (27.0-31.0); Mean Platelet Volume 7.3 fL (7.4-10.4); Platelet Count 263 thou/uL (130-400); RBC Distribution Width 14.4 % (11.5-14.5); Red Blood Cell (RBC) Count 3.17 mill/uL (4.20-5.40); White Blood Cell (WBC) Count 5.8 thou/uL (4.8-10.8)
[2021-08-15 07:59] LABS: Anion Gap 12 mmol/L (10-20); BUN (Urea Nitrogen) 25 mg/dL (9.8-20.1); Calc. Creatinine Clearance 50 mL/min (70-130); Calcium 8.7 mg/dL (7.8-10.44); Carbon Dioxide 25 mmol/L (23-31); Chloride 101 mmol/L (98-107); Glucose 112 mg/dL (83-110); Sodium 133 mmol/L (136-145)
[2021-08-15] MEDS ORDERED: FLU VACC QS2021-22(65YR UP)/PF 240 MCG/0.7 ML SYRINGE IM ONE (09:00)
[2021-08-15] MEDS ORDERED: Polyethylene Glycol 3350 17 GM Packet PO PRN (09:03)
[2021-08-15 09:36] LABS: Band 2 % (5-11); Eosinophils 3 % (0-10); Lymphocytes 27 % (21-51); MDiff Complete? YES; Monocytes 15 % (0-10); Neutrophil 53 % (42-75); Platelet Morphology Comment Appears Adequate; Polychromasia SLIGHT = 2-3 cells (100X) (0-2/hpf)
[2021-08-15] MEDS ORDERED: Furosemide 20 MG/2 ML VIAL SLOW IVP SCH (11:00)
[2021-08-15 12:41] LABS: Glucose 181 mg/dL (83-110)
[2021-08-15] MEDS: Rivaroxaban 15 MG TAB PO SCH (17:18)
[2021-08-15 17:57] LABS: Glucose 156 mg/dL (83-110)
[2021-08-15 21:20] LABS: Glucose 155 mg/dL (83-110)
[2021-08-16 04:53] LABS: Anion Gap 12 mmol/L (10-20); BUN (Urea Nitrogen) 26 mg/dL (9.8-20.1); Calc. Creatinine Clearance 45 mL/min (70-130); Calcium 8.9 mg/dL (7.8-10.44); Carbon Dioxide 26 mmol/L (23-31); Chloride 99 mmol/L (98-107); Glucose 150 mg/dL (83-110); Potassium 4.9 mmol/L (3.5-5.1); Sodium 132 mmol/L (136-145)
[2021-08-16 04:56] LABS: Hemoglobin 8.4 g/dL (12.0-16.0); Mean Corpuscular Hemoglobin 27.4 pg (27.0-31.0); Mean Corpuscular Volume 85.7 fL (78.0-98.0); Mean Platelet Volume 7.3 fL (7.4-10.4); Platelet Count 244 thou/uL (130-400); RBC Distribution Width 14.5 % (11.5-14.5); Red Blood Cell (RBC) Count 3.07 mill/uL (4.20-5.40); White Blood Cell (WBC) Count 6.1 thou/uL (4.8-10.8)
[2021-08-16 05:35] LABS: Band 6 % (5-11); Eosinophils 3 % (0-10); Lymphocytes 21 % (21-51); MDiff Complete? YES; Monocytes 15 % (0-10); Myelocyte 1 % (0-0); Neutrophil 54 % (42-75)
[2021-08-16 08:06] LABS: Glucose 101 mg/dL (83-110)
[2021-08-16] MEDS: Gabapentin 100 MG CAP PO SCH ×2 (08:57→21:10)
[2021-08-16] MEDS: Metoprolol Tartrate 25 MG TAB PO SCH ×2 (08:57→21:10)
[2021-08-16] MEDS: Amiodarone 200 MG TAB PO SCH (08:57)
[2021-08-16] MEDS: Clopidogrel Bisulfate 75 MG TAB PO SCH (08:58)
[2021-08-16] MEDS: Levothyroxine Sodium 25 MCG TAB PO SCH (08:58)
[2021-08-16 12:31] LABS: Glucose 143 mg/dL (83-110)
[2021-08-16] MEDS: Rivaroxaban 15 MG TAB PO SCH (17:48)
[2021-08-16 18:13] LABS: Glucose 200 mg/dL (83-110)
[2021-08-16] MEDS ORDERED: Melatonin 3 MG TAB PO PRN (20:39)
[2021-08-17 05:23] LABS: Hemoglobin 8.5 g/dL (12.0-16.0); Mean Corpuscular HGB CONC 32.4 g/dL (32.0-36.0); Mean Corpuscular Hemoglobin 27.3 pg (27.0-31.0); Mean Corpuscular Volume 84.3 fL (78.0-98.0); Mean Platelet Volume 7.2 fL (7.4-10.4); Platelet Count 233 thou/uL (130-400); RBC Distribution Width 14.3 % (11.5-14.5); Red Blood Cell (RBC) Count 3.13 mill/uL (4.20-5.40); White Blood Cell (WBC) Count 5.9 thou/uL (4.8-10.8)
[2021-08-17 05:42] LABS: Anion Gap 14 mmol/L (10-20); BUN (Urea Nitrogen) 28 mg/dL (9.8-20.1); Calc. Creatinine Clearance 50 mL/min (70-130); Calcium 8.8 mg/dL (7.8-10.44); Carbon Dioxide 24 mmol/L (23-31); Chloride 99 mmol/L (98-107); Glucose 121 mg/dL (83-110); Potassium 5.1 mmol/L (3.5-5.1); Sodium 132 mmol/L (136-145)
[2021-08-17 06:01] LABS: Band 11 % (5-11); Lymphocytes 22 % (21-51); MDiff Complete? YES; Monocytes 10 % (0-10); Neutrophil 56 % (42-75)
[2021-08-17 08:14] VITALS: BP 151/63; TEMP 98.4
[2021-08-17] MEDS: Metoprolol Tartrate 25 MG TAB PO SCH (08:22)
[2021-08-17] MEDS: Gabapentin 100 MG CAP PO SCH (08:22)
[2021-08-17] MEDS: Clopidogrel Bisulfate 75 MG TAB PO SCH (08:22)
[2021-08-17] MEDS: Amiodarone 200 MG TAB PO SCH (08:22)
[2021-08-17] MEDS: Levothyroxine Sodium 25 MCG TAB PO SCH (08:23)
[2021-08-17 08:32] LABS: Glucose 128 mg/dL (83-110)
== END 2021-08-17 10:14 | disposition hospice, home (50) | DRG 682 ==
LOC: ERS 14:47 → ERHOLD 18:05 → 2NO 20:54 → OBSVTOIN 08-13 09:37
PROVIDERS: ADMIT Internal Medicine; ATTEND Family Medicine
DX: N17.9 Acute kidney failure, unspecified (principal); E43 Unspecified severe protein-calorie malnutrition; E87.1 Hypo-osmolality and hyponatremia; C22.0 Liver cell carcinoma; C79.70 Secondary malignant neoplasm of unspecified adrenal gland; Z66 Do not resuscitate; E11.22 Type 2 diabetes mellitus with diabetic chronic kidney disease; I25.10 Atherosclerotic heart disease of native coronary artery without angina pectoris; E78.5 Hyperlipidemia, unspecified; I12.9 Hypertensive chronic kidney disease with stage 1 through stage 4 chronic kidney disease, or unspecified chronic kidney disease; D63.1 Anemia in chronic kidney disease; N18.30 Chronic kidney disease, stage 3 unspecified; G89.29 Other chronic pain; M54.9 Dorsalgia, unspecified; H40.9 Unspecified glaucoma; I48.0 Paroxysmal atrial fibrillation; R29.6 Repeated falls; E87.5 Hyperkalemia; Z68.33 Body mass index [BMI] 33.0-33.9, adult; R63.1 Polydipsia; E87.70 Fluid overload, unspecified; I95.89 Other hypotension; E86.1 Hypovolemia; E11.40 Type 2 diabetes mellitus with diabetic neuropathy, unspecified; E11.51 Type 2 diabetes mellitus with diabetic peripheral angiopathy without gangrene; E66.9 Obesity, unspecified; Z79.01 Long term (current) use of anticoagulants; Z88.0 Allergy status to penicillin; Z88.2 Allergy status to sulfonamides; Z88.8 Allergy status to other drugs, medicaments and biological substances; Z88.1 Allergy status to other antibiotic agents; Z91.041 Radiographic dye allergy status; Z91.040 Latex allergy status; Z79.899 Other long term (current) drug therapy; Z79.890 Hormone replacement therapy; Z85.820 Personal history of malignant melanoma of skin; Z95.0 Presence of cardiac pacemaker; Z98.42 Cataract extraction status, left eye; Z98.41 Cataract extraction status, right eye; Z90.49 Acquired absence of other specified parts of digestive tract; Z95.1 Presence of aortocoronary bypass graft; Z90.710 Acquired absence of both cervix and uterus; Z91.81 History of falling
CPT/HCPCS: 36415; 36416; 51702; 70450; 71045; 80048; 80053; 81003; 81015; 83690; 83880; 83930; 83935; 84300; 84484; 85025; 93005; 94760; G0378; J1940; J7050